=== PATIENT | male | born 1955 | race Caucasian/White ===

== ENCOUNTER 2019-12-02 05:40 | Day surgery (SDC) | payer MEDICARE, BC ==
[2019-12-02] MEDS ORDERED: fentaNYL 100 MCG/2 ML SDV ONE (07:45)
[2019-12-02] MEDS ORDERED: Propofol 200 MG/20 ML SDV ONE (07:45)
[2019-12-02] MEDS ORDERED: Dextrose 5%-Lactated Ringers 1,000 ML IV SCH (08:00)
--- NOTE | 2019-12-03 15:42 | OR ---
DATE OF PROCEDURE: 12/02/2019 SURGEON: Ttii Mclaughlin MD PREOPERATIVE DIAGNOSIS: Gastroesophageal reflux disease. POSTOPERATIVE DIAGNOSIS: Moderate-sized hiatal hernia with mildly active gastroesophageal reflux disease. OPERATIVE PROCEDURE: Esophagogastroduodenoscopy with biopsy of esophagogastric junction. ANESTHESIA: IV sedation. INDICATIONS FOR PROCEDURE: A 63-year-old male being treated for stage IV lung cancer, who per the request of Medical Oncology is undergoing upper endoscopy to assess the degree of his esophagitis. The patient presently states that he has not had any heartburn or other reflux-type symptoms for several weeks. He presently is on omeprazole 40 mg a day. Plan is to proceed with upper GI endoscopy with biopsies and/or dilation as indicated. Potential risks including bleeding and perforation were discussed and the patient wishes to proceed. DETAILS OF PROCEDURE: The patient was taken to the operating room, placed in a left lateral decubitus position. IV sedation was administered after which the upper GI endoscope was passed orally through the length of the esophagus and stomach with retroflexion view of the fundus and thereafter through the pyloric channel and into the junction of the third and fourth portions of the duodenum. Findings included normal hypopharynx, larynx, upper esophageal sphincter, and esophageal body. At the EG junction, the patient had a moderate-sized hiatal hernia measuring around 3 to 4 cm. There was some friability of the distal esophageal mucosa consistent with some reflux disease. No ulcerations or stricturing were present, and the remainder of the gastric and duodenal exams were unremarkable. At this point, biopsies were obtained from the esophagogastric junction and sent for histologic evaluation. Minimal bleeding from biopsy sites was seen and the procedure concluded. The patient was taken to the recovery room in satisfactory condition. Titi Mclaughlin MD /[id number]
== END 2019-12-02 09:07 | disposition home or self-care (01) ==
LOC: JP.SDS 05:40
PROVIDERS: ATTEND Surgery
DX: K44.9 Diaphragmatic hernia without obstruction or gangrene (principal); K21.9 Gastro-esophageal reflux disease without esophagitis; C34.90 Malignant neoplasm of unspecified part of unspecified bronchus or lung; Z79.899 Other long term (current) drug therapy
CPT/HCPCS: 43239; C1751; J1642; J2704; J3010; J7121; 88305

== ENCOUNTER 2020-04-07 12:39 | Emergency (ER) | payer MEDICARE, BC ==
[2020-04-07] MEDS ORDERED: HYDROmorphone 0.5 MG/0.5 ML Syringe IVPUSH ONE ×2 (13:18→14:23)
[2020-04-07] MEDS ORDERED: Ondansetron 4 MG/2 ML SDV IVPUSH ONE (13:18)
--- NOTE | 2020-04-07 13:20 | EDM.PDOC ---
ED HPI GENERAL MEDICAL PROBLEM - General Chief Complaint: Headache Stated Complaint: MIGRAINE,NAUSEA Time Seen by Provider: 04/07/20 13:20 Source of Information: Reports: Patient History Limitations: Reports: No Limitations - History of Present Illness INITIAL COMMENTS - FREE TEXT/NARRATIVE: pt has a severe rt sided headache. 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 He was very uncomfortable and was not aable to take his med. 5 Pain Score (Numeric/FACES): 9 - Related Data Allergies Allergy/AdvReac Type Severity Reaction Status Date / Time No Known Allergies Allergy Verified 04/07/20 12:54 Home Meds: Home Meds Acetaminophen/HYDROcodone [[place] 325-10 MG] 1 tab PO Q6H PRN 11/29/19 [History] Albuterol Sulfate [Proair Hfa] 1 - 2 puff IH Q4H PRN 11/29/19 [History] Docusate Sodium/Sennosides [Senokot-S] 1 each PO BID 11/29/19 [History] Fluticasone Propionate [Flonase] 2 spray NS DAILY 11/29/19 [History] Loratadine [Claritin] 10 mg PO DAILY 11/29/19 [History] Multivitamin [Multi-Day Vitamins] 1 each PO DAILY 11/29/19 [History] Omeprazole 40 mg PO DAILY PRN 11/29/19 [History] Ondansetron [Zofran] 8 mg PO Q8H PRN 11/29/19 [History] Urea [Urea 40% Crm] 1 applic TOP BID 11/29/19 [History] amLODIPine [Norvasc] 5 mg PO DAILY 11/29/19 [History] dexAMETHasone [Dexamethasone] 0.5 mg PO BID 11/29/19 [History] Past Medical History HEENT History: Reports: Cataract, Impaired Vision Cardiovascular History: Reports: Hypertension Respiratory History: Reports: Other (See Below) Other Respiratory History: LUNG CA Gastrointestinal History: Reports: GERD Genitourinary History: Reports: Other (See Below) Other Genitourinary History: TROIUBLE URINATING Musculoskeletal History: Reports: None Neurological History: Reports: Other (See Below) Other Neuro History: BRAIN TUMOR Psychiatric History: Reports: None Endocrine/Metabolic History: Reports: None Hematologic History: Reports: None Immunologic History: Reports: None Oncologic (Cancer) History: Reports: Brain Dermatologic History: Reports: None - Infectious Disease History Infectious Disease History: Reports: Chicken Pox, Measles, Mumps - Past Surgical History HEENT Surgical History: Reports: Cataract Surgery Cardiovascular Surgical History: Reports: None Respiratory Surgical History: Reports: Lung Resection Other Respiratory Surgeries/Procedures: LEFT UPPER LOBE GI Surgical History: Reports: Colonoscopy, Hernia, Inguinal Male Surgical History: Reports: Circumcision Neurological Surgical History: Reports: Other (See Below) Other Neurological Surgeries/Procedures: BRAIN TUMORS REMOVED Dermatological Surgical History: Reports: None Social & Family History - Family History Family Medical History: No Pertinent Family History - Tobacco Use Tobacco Use Status *Q: Never Tobacco User - Caffeine Use Caffeine Use: Reports: Coffee ED ROS GENERAL - Review of Systems Review Of Systems: See Below Constitutional: Reports: No Symptoms Respiratory: Reports: No Symptoms Cardiovascular: Reports: No Symptoms Endocrine: Reports: No Symptoms GI/Abdominal: Reports: No Symptoms : Reports: No Symptoms Musculoskeletal: Reports: No Symptoms Skin: Reports: No Symptoms Neurological: Reports: Headache, Other ( severe on the rt.) Psychiatric: Reports: Anxiety - Physical Exam Exam: See Below Text/Narrative:: pt has a very uncomfortable headache. on the rt side. Exam Limited By: No Limitations General Appearance: Alert, Anxious, Severe Distress, Other (pupils are equal and reactive. ) Ears: Normal TMs Nose: Normal Inspection Throat/Mouth: Normal Inspection Head Exam: Atraumatic Neck: Normal Inspection Respiratory/Chest: No Respiratory Distress Cardiovascular: Regular Rate, Rhythm GI/Abdominal: Soft, Non-Tender (Male) Exam: Deferred Rectal (Males) Exam: Deferred Neuro Exam (Abbreviated): Alert, Oriented, Normal Cognition Back Exam: Normal Inspection Extremities: Normal Inspection Psychiatric: Anxious Course - Vital Signs Last Recorded V/S: Last Vital Signs Temp 36.6 C 04/07/20 13:00 Pulse 58 L 04/07/20 13:00 Resp 18 04/07/20 13:00 BP 151/96 H 04/07/20 13:00 Pulse Ox 96 04/07/20 13:00 - Orders/Labs/Meds Meds: Medications Discontinued Medications Generic Name Dose Route Start Last Admin Trade Name Freq PRN Reason Stop Dose Admin Dexamethasone 4 mg 04/07/20 14:32 04/07/20 14:38 Decadron IVPUSH 04/07/20 14:33 4 mg ONETIME ONE Administration Hydromorphone HCl 0.5 mg 04/07/20 13:18 04/07/20 13:46 Dilaudid IVPUSH 04/07/20 13:19 0.5 mg ONETIME ONE Administration Hydromorphone HCl 0.5 mg 04/07/20 14:23 04/07/20 14:32 Dilaudid IVPUSH 04/07/20 14:24 0.5 mg ONETIME ONE Administration Ondansetron HCl 4 mg 04/07/20 13:18 04/07/20 13:46 Zofran IVPUSH 04/07/20 13:19 4 mg ONETIME ONE Administration - Re-Assessments/Exams Free Text/Narrative Re-Assessment/Exam: 04/07/20 16:06 Oliva from Oncology was contacted and will increase the decadron. The cat scan did show a lesion on the rt side. He was given a mg of dilaudid with relief and decadron 4 mg iv. He is much more comfortable. Departure - Departure Time of Disposition: 15:59 Disposition: Home, Self-Care 01 Condition: Fair Clinical Impression: Cancer of right lung, Malignant neoplasm metastatic to brain - Discharge Information Instructions: Lung Cancer, Metastatic Brain Tumor, Adult Referrals: Tameka Franco MD [Primary Care Provider] - Forms: ED Department Discharge Care Plan Goals: Parish from oncology will contact the pt regarding radiation, increase dexamethasone to 4 mg bid, percocet 5/325 q6h prn for severe headache, rtc if problems. zoforan 4mg subling as needed for nausea. resume other meds. Sepsis Event Note (ED) - Evaluation Sepsis Screening Result: No Definite Risk
--- NOTE | 2020-04-07 14:17 | CRLCT ---
INDICATION: Severe headache. Known metastatic disease to the lungs COMPARISON: None TECHNIQUE: CT examination of the head was performed as axial sections without intravenous contrast. Images were obtained from the vertex of the skull through the skull base. Please note that all CT scans at this facility use dose modulation, iterative reconstruction, and/or weight-based dosing when appropriate to reduce radiation dose to as low as reasonably achievable. FINDINGS: There are findings of a left parietal region craniotomy. There appears to be an area of encephalomalacia immediately subjacent to the craniotomy on the left. This probably represents the area of a previously resected lesion A low-density mass is noted in the left parietal lobe inferiorly. This is separate from the above-mentioned area of encephalomalacia. This measures about 4 centimeters and probably represents a metastatic deposit to the brain. There is a 2nd low-density lesion in the right frontal lobe measuring about 3.2 centimeters which may represent a metastatic lesion as well. I see no hemorrhage. There is minimal mass effect upon the regional structures but no midline shift. If this requires further imaging, an MRI with gadolinium would be the study of choice IMPRESSION: Findings suggesting metastatic disease to the brain. I discussed the above findings with Dr. Rayna Garcia at 2:10 p.m. on April 07, [address] Please note that all CT scans at this facility use dose modulation, iterative reconstruction, and/or weight-based dosing when appropriate to reduce radiation dose to as low as reasonably achievable. Dictated by Titi Londono MD @ Apr 07 2020 2:09PM Signed by Dr. Titi Londono @ Apr 07 2020 2:15PM
[2020-04-07] MEDS ORDERED: Dexamethasone 4 MG/ML SDV IVPUSH ONE (14:32)
== END 2020-04-07 16:19 | disposition home or self-care (01) ==
LOC: JP.ED 12:39
DX: C34.91 Malignant neoplasm of unspecified part of right bronchus or lung (principal); C79.31 Secondary malignant neoplasm of brain; I10 Essential (primary) hypertension; Z79.899 Other long term (current) drug therapy
CPT/HCPCS: 70450; 96374; 96375; 96376; 99284; 99284-25; J1100; J1170; J2405

== ENCOUNTER 2020-04-25 13:55 | Inpatient (IN) | payer MEDICARE, BC ==
[2020-04-25] MEDS ORDERED: Sodium Chloride 0.9% 10 ML Syringe FLUSH PRN (14:47)
[2020-04-25] MEDS ORDERED: Ondansetron 4 MG/2 ML SDV IV PRN (14:47)
[2020-04-25] MEDS ORDERED: Acetaminophen 325 MG Tab PO PRN (14:47)
[2020-04-25] MEDS ORDERED: Albuterol 0.083% 2.5 MG/3 ML Neb Soln NEB PRN (14:47)
[2020-04-25] MEDS ORDERED: LORazepam 2 MG/ML SDV IVPUSH PRN (14:47)
[2020-04-25] MEDS ORDERED: Magnesium Hydroxide 400 MG/5 ML Susp 30 ML Cup PO PRN (14:47)
[2020-04-25] MEDS ORDERED: Ondansetron 4 MG Tab.DIS PO PRN (14:47)
--- NOTE | 2020-04-25 14:57 | PCM.HP.2 ---
H&P History of Present Illness - General Date of Service: 04/25/20 Admit Problem/Dx: Admission Diagnosis/Problem Admission Diagnosis/Problem CHF, Congestive heart failure Source of Information: Patient, Family History Limitations: Reports: No Limitations - History of Present Illness Initial Comments - Free Text/Narative: CC: My legs are so swollen HPI: Jose presents to the hospital as a direct admission from the infusion center after seeing his oncologist. Some history is gathered from his but most of the history is gathered from Jose. He reports 2 to 3 days of progressive dyspnea with exertion as well as increasing lower extremity edema. His feet are so swollen that he had to cut his shoes to get them to fit today. He has never had trouble with lower extremity swelling before. He has a dry and nonproductive cough. He does not report orthopnea. No recent chest pain. No fevers or chills. He has been on an increased dose of dexamethasone for 2 weeks because of recent headaches and swelling around the previous area of radiation. He was also recently started on alectinib to treat his lung cancer. He has noticed some mild increase in his abdominal girth. No change in bowel or bladder habits. No sick contacts or travel. His strength has been diminished over the past couple of days. No myalgias or arthralgias. He has chronic back pain but this is stable. He was initially seen at the infusion center. He was noted to have gained 16 pounds in the past month. He had significant swelling and appeared dyspneic. He was tachycardic. Laboratory studies unremarkable other than a white blood cell count of 14,000. He was sent to the hospital for expedited work-up with concern for congestive heart failure. - Related Data Allergies/Adverse Reactions: Allergies Allergy/AdvReac Type Severity Reaction Status Date / Time No Known Allergies Allergy Verified 04/07/20 12:54 Home Medications: Home Meds Acetaminophen/HYDROcodone [[place] 325-10 MG] 1 tab PO Q6H PRN 11/29/19 [History] Albuterol Sulfate [Proair Hfa] 1 - 2 puff IH Q4H PRN 11/29/19 [History] Docusate Sodium/Sennosides [Senokot-S] 1 each PO BID PRN 11/29/19 [History] Fluticasone Propionate [Flonase] 2 spray NS DAILY PRN 11/29/19 [History] Loratadine [Claritin] 10 mg PO DAILY 11/29/19 [History] Multivitamin [Multi-Day Vitamins] 1 each PO DAILY 11/29/19 [History] Omeprazole 40 mg PO DAILY PRN 11/29/19 [History] Ondansetron [Zofran] 8 mg PO Q8H PRN 11/29/19 [History] Urea [Urea 40% Crm] 1 applic TOP BID PRN 11/29/19 [History] amLODIPine [Norvasc] 5 mg PO DAILY 11/29/19 [History] dexAMETHasone [Dexamethasone] 2 mg PO BID 11/29/19 [History] Alectinib HCl [Alecensa] 600 mg PO BID 04/25/20 [History] Past Medical History HEENT History: Reports: Cataract, Impaired Vision Cardiovascular History: Reports: Hypertension Respiratory History: Reports: Other (See Below) Other Respiratory History: LUNG CA Gastrointestinal History: Reports: GERD Genitourinary History: Reports: Other (See Below) Other Genitourinary History: TROIUBLE URINATING Musculoskeletal History: Reports: None Neurological History: Reports: Other (See Below) Other Neuro History: BRAIN TUMOR Psychiatric History: Reports: None Endocrine/Metabolic History: Reports: None Hematologic History: Reports: None Immunologic History: Reports: None Oncologic (Cancer) History: Reports: Brain Dermatologic History: Reports: None - Infectious Disease History Infectious Disease History: Reports: Chicken Pox, Measles, Mumps - Past Surgical History HEENT Surgical History: Reports: Cataract Surgery Cardiovascular Surgical History: Reports: None Respiratory Surgical History: Reports: Lung Resection Other Respiratory Surgeries/Procedures: LEFT UPPER LOBE GI Surgical History: Reports: Colonoscopy, Hernia, Inguinal Male Surgical History: Reports: Circumcision Neurological Surgical History: Reports: Other (See Below) Other Neurological Surgeries/Procedures: BRAIN TUMORS REMOVED Dermatological Surgical History: Reports: None Social & Family History - Family History Family Medical History: No Pertinent Family History - Tobacco Use Tobacco Use Status *Q: Never Tobacco User - Caffeine Use Caffeine Use: Reports: Coffee - Alcohol Use Alcohol Use History: No Alcohol Use in Last Twelve Months: No - Recreational Drug Use Recreational Drug Use: No Drug Use in Last 12 Months: No H&P Review of Systems - Review of Systems: Review Of Systems: See Below Free Text/Narrative: A complete 12 point review of systems was obtained. Pertinent positives and negatives are noted in the history of present illness. All other systems were reviewed and were negative except as noted. Exam - Exam Exam: See Below - Exam Quality Assessment: No: Supplemental Oxygen General: Alert, Oriented, Cooperative, Mild Distress (Mild increase in work of breathing) HEENT: Conjunctiva Clear. No: Mucosa Moist & [place] Neck: Supple, Trachea Midline. No: JVD Lungs: Normal Respiratory Effort, Crackles (Few right lung base). No: Wheezing Cardiovascular: Regular Rhythm, Tachycardia. No: Systolic Murmur, Gallop/S3 GI/Abdominal Exam: Normal Bowel Sounds, Soft, Non-Tender, No Distention, No Mass Back Exam: Normal Inspection, Full Range of Motion Extremities: Pedal Edema (Pitting edema to the knee on the right and to mid thigh on the left). No: Joint Swelling, Increased Warmth Skin: Warm, Dry, Rash (He has a few macules scattered across his chest as well as the elbow regions of both arms on the medial surface) Neuro Extensive - Mental Status: Alert, Oriented x3, Normal Mood/Affect, Nl Response to Commands Neuro Extensive - Motor, Sensory, Reflexes: No: Dysarthria, Abnormal Motor, Tremor Psychiatric: Alert, Normal Affect - Patient Data Lab Results Last 24 hrs: White blood cell count 14k Hemoglobin 14 Creatinine 1.27 Potassium 4.6 Imaging Impressions Last 24 hrs: Chest [id number] personally reviewed-right lung is clear. Some haziness on the left side probably related to volume loss from his previous lung surgery. No obvious mass or infiltrate. Heart size is normal. Lower extremity venous ultrasound-no evidence for DVT *Q Meaningful Use (ADM) - VTE Risk Assess *Q Each Risk Factor Represents 1 Point: Swollen Legs, Current, Obesity ( BMI > 25 kg/m2) Total Score 1 Point Risk Factors: 2 Each Risk Factor Represents 2 Points: Central venous access, Malignancy (present or previous) Total Score 2 Point Risk Factors: 4 Each Risk Factor Represents 3 Points: History of DVT/PE Total Score 3 Point Risk Factors: 3 Each Risk Factor Represents 5 Points: None Total Score 5 Point Risk Factors: 0 Venous Thromboembolism Risk Factor Score *Q: 9 - Problem List (1) Congestive heart failure SNOMED Code(s): 30051441 ICD Code: I50.9 - HEART FAILURE, UNSPECIFIED Status: Suspected Current Visit: Yes Qualifiers: Heart failure type: unspecified Heart failure chronicity: acute Qualified Code(s): I50.9 - Heart failure, unspecified (2) Non-small cell carcinoma of left lung, stage 4 SNOMED Code(s): 410540197, 508011256 ICD Code: C34.92 - MALIGNANT NEOPLASM OF UNSP PART OF LEFT BRONCHUS OR LUNG Status: Chronic Current Visit: Yes (3) Hx of pulmonary embolus SNOMED Code(s): 429362878 ICD Code: Z86.711 - PERSONAL HISTORY OF PULMONARY EMBOLISM Status: Chronic Current Visit: No Problem List Initiated/Reviewed/Updated: Yes Orders Last 24hrs: Active Orders 24 hr Category Date Time Status Patient Status [ADT] Routine ADT 04/25/20 14:47 Ordered Antiembolic Devices [RC] .Routine Care 04/25/20 14:47 Ordered Cardiac Monitoring [RC] CONTINUOUS Care 04/25/20 14:48 Ordered Height and Weight [RC] DAILY Care 04/25/20 14:47 Ordered Intake and Output [RC] QSHIFT Care 04/25/20 14:47 Ordered Notify Provider Vital Signs [RC] ASDIRECTED Care 04/25/20 14:47 Ordered Oxygen Therapy [RC] PRN Care 04/25/20 14:47 Ordered RT Aerosol Therapy [RC] ASDIRECTED Care 04/25/20 14:50 Ordered Up With Assistance [RC] ASDIRECTED Care 04/25/20 14:47 Ordered VTE/DVT Education [RC] Per Unit Routine Care 04/25/20 14:47 Ordered Vital Signs [RC] Q4H Care 04/25/20 14:47 Ordered PT Evaluation and Treatment [CONS] Routine Cons 04/26/20 07:00 Ordered 2 Gram Sodium Diet [DIET] Diet 04/25/20 Dinner Ordered Chest 2V [CR] Urgent Exams 04/25/20 14:47 Ordered Echo Comp wo Cont [US] Routine Exams 04/27/20 07:00 Ordered VL Duplex Lwr Ext Veins Comp [US] Routine Exams 04/25/20 14:51 Ordered CBC W/O DIFF,HEMOGRAM [HEME] AM Lab 04/26/20 05:11 Ordered COMPREHENSIVE METABOLIC PN,CMP [CHEM] AM Lab 04/26/20 05:11 Ordered COVID-19/FLU A+B/RSV [MOLEC] Urgent Lab 04/25/20 14:03 Ordered Acetaminophen [TylenoL] Med 04/25/20 14:47 Ordered 650 mg PO Q4H PRN Albuterol [Proventil Neb Soln] Med 04/25/20 14:47 Ordered 2.5 mg NEB Q4H PRN Docusate Sodium/Sennosides [Senna Plus] Med 04/25/20 14:47 Ordered 1 tab PO BID PRN Furosemide [Lasix] Med 04/25/20 14:51 Once 40 mg IVPUSH ONETIME ONE LORazepam [Ativan] Med 04/25/20 14:47 Ordered 0.5 mg IVPUSH Q4H PRN Magnesium Hydroxide [Milk of Magnesia] Med 04/25/20 14:47 Ordered 30 ml PO Q12H PRN Melatonin Med 04/25/20 21:00 Ordered 9 mg PO BEDTIME Ondansetron [Zofran ODT] Med 04/25/20 14:47 Ordered 8 mg PO Q6H PRN Ondansetron [Zofran] Med 04/25/20 14:47 Ordered 4 mg IV Q6H PRN Pantoprazole [ProTONIX] Med 04/26/20 07:30 Ordered 40 mg PO ACBREAKFAST Sodium Chloride 0.9% [Saline Flush] Med 04/25/20 14:47 Ordered 10 ml FLUSH ASDIRECTED PRN Antiembolic Hose [OM.PC] Routine Oth 04/25/20 14:48 Ordered Saline Lock Insert [OM.PC] Urgent Oth 04/25/20 14:47 Ordered Resuscitation Status Routine Resus Stat 04/25/20 14:47 Ordered Assessment/Plan Comment:: ASSESSMENT AND PLAN - Congestive heart failure, suspected-acute onset of dyspnea and lower extremity swelling. Could be related to congestive heart failure versus medication side effect versus DVT/pulmonary embolism versus other. Doubt infection at this merari e. He was recently on high-dose steroids and is also on a new chemotherapeutic agent that has a fairly high incidence of edema as a side effect. He is also on a calcium channel [place]. He is not currently hypoxic. -Furosemide x1 now -Chest x-ray -Lower extremity venous ultrasound -CORIN stockings overnight and through the day tomorrow -Daily weights -Echocardiogram when available in 2 days -Hold alectinib Non-small cell cancer of the left lung with brain metastases-stage IV disease. Currently stable. Followed by oncology at [facility]. -Holding chemotherapeutic agent as above -Dexamethasone 2 mg twice a day -Outpatient follow-up History of DVT/PE-occurred in the postoperative setting after his lung surgery couple of years ago. -Ultrasound as above Maintenance issues - - DVT prophylaxis -CORIN stockings - GI prophylaxis -PPI - Nutrition -low-sodium - Velazquez catheter -not indicated CODE STATUS -DNR/DNI Admission justification -this patient will be admitted for inpatient services and is medically appropriate meeting medical necessity for inpatient admission as outlined in my documentation. I reasonably expect the patient will require inpatient services that span a period time over 2 midnights. I reasonably expect this patient to be discharged or transferred within 96 hours [facility]. Disposition -I would anticipate discharge home after the hospital stay Primary care physician -[facility] Ayad Villarreal M.D. - Mortality Measure Prognosis:: Good
[2020-04-25] MEDS ORDERED: Furosemide 40 MG/4 ML VIAL IVPUSH ONE (15:30)
[2020-04-25 15:49] LABS: CORONAVIRUS COVID-19 NAA NEGATIVE (NEGATIVE)
--- NOTE | 2020-04-25 16:22 | CRLCR ---
INDICATION: Shortness of breath TECHNIQUE: Chest radiograph 2 views on 3 films COMPARISON: None FINDINGS: Severe degradation of image quality noted due to body habitus. Mediastinum: Convex enlargement of the right paratracheal region is present. The heart silhouette is normal in size and morphology. A right Port-A-Cath is present with the tip in the SVC. Lung: Hazy increased density is present in the left mid lower lung zones with small left lung volume. No sign of pleural effusion seen. No pneumothorax is identified. Bone and Soft tissue: Unremarkable for age. IMPRESSIONS: 1. Hazy increased density is present in the left mid lower lung zones with small left lung volume. These findings can be seen with atelectasis and/or pneumonia. 2. Convex enlargement of the right paratracheal region is present. This may be due to tortuous vessels or paratracheal adenopathy. Dictated by Chavo Sinha MD @ 04/25/2020 4:21:21 PM Dictated by: Chavo Sinha MD @ 04/25/2020 16:21:27 (Electronically Signed)
[2020-04-25] MEDS: Acetaminophen/HYDROcodone 325-10 MG Tab PO PRN (17:19)
[2020-04-25] MEDS ORDERED: Non-Formulary Medication 1 Each INH SCH (21:00)
[2020-04-25] MEDS: Dexamethasone 2 MG Tab PO SCH (21:24)
[2020-04-25] MEDS: Melatonin 3 MG Tab PO SCH (21:24)
[2020-04-26] MEDS: Acetaminophen/HYDROcodone 325-10 MG Tab PO PRN ×4 (00:51→19:33)
[2020-04-26] MEDS: Pantoprazole 40 MG Tab.CR PO SCH (08:16)
[2020-04-26] MEDS: Multivitamins with Iron/Calcium/Folic Acid/Minerals Tab PO SCH (08:16)
[2020-04-26] MEDS: Loratadine 10 MG Tab PO SCH (08:16)
[2020-04-26] MEDS: Dexamethasone 2 MG Tab PO SCH ×2 (08:17→20:58)
[2020-04-26] MEDS: amLODIPine 5 MG Tab PO SCH (08:17)
--- NOTE | 2020-04-26 09:25 | US ---
VL Duplex Lwr Ext Veins Comp HISTORY: Bilateral leg edema FINDINGS: The deep veins of the both lower extremities demonstrate normal augmentation and compressibility. No evidence for deep venous thrombosis. IMPRESSION: Normal bilateral lower extremity venous Doppler study.
--- NOTE | 2020-04-26 09:27 | PCM.PN ---
- General Info Date of Service: 04/26/20 Subjective Update: No acute events overnight. Patient slept well. Lower extremity edema is much better but not resolved. No shortness of breath. Appetite good. Creatinine slightly higher at 1.5 today. No reports of headache. Functional Status: Reports: Pain Controlled, Tolerating Diet - Review of Systems Cardiovascular: Reports: Edema (improved) - Patient Data Vitals - Most Recent: Last Vital Signs Temp 36.2 C 04/26/20 07:57 Pulse 103 H 04/26/20 07:57 Resp 16 04/26/20 07:57 BP 141/73 H 04/26/20 08:17 Pulse Ox 94 L 04/26/20 07:57 Weight - Most Recent: 90.9 kg I&O - Last 24 Hours: Intake & Output 04/25/20 04/26/20 04/26/20 22:59 06:59 14:59 Intake Total 300 480 Output Total 1800 300 Balance -1800 0 480 Lab Results Last 24 Hours: Laboratory Results - last 24 hr 04/25/20 04/26/20 04/26/20 Range/Units 15:00 04:24 04:24 WBC 15.7 H (4.5-11.0) K/uL RBC 4.78 (4.30-5.90) M/uL Hgb 14.9 (12.0-15.0) g/dL Hct 47.5 (40.0-54.0) % MCV 99 H (80-98) fL MCH 31 (27-31) pg MCHC 31 L (32-36) % Plt Count 172 (150-400) K/uL Sodium 141 (140-148) mmol/L Potassium 4.5 (3.6-5.2) mmol/L Chloride 101 (100-108) mmol/L Carbon Dioxide 30 (21-32) mmol/L Anion Gap 9.6 (5.0-14.0) mmol/L BUN 37 H (7-18) mg/dL Creatinine 1.5 H (0.8-1.3) mg/dL Est Cr Clr Drug Dosing 50.41 mL/min Estimated GFR (MDRD) 47 L (>60) Glucose 233 H (74-106) mg/dL Calcium 9.1 (8.5-10.1) mg/dL Total Bilirubin 0.7 (0.2-1.0) mg/dL AST 67 H (15-37) U/L ALT 233 H (12-78) U/L Alkaline Phosphatase 117 H (46-116) U/L Total Protein 5.5 L (6.4-8.2) g/dL Albumin 2.8 L (3.4-5.0) g/dL Globulin 2.7 (2.3-3.5) g/dL Albumin/Globulin Ratio 1.0 L (1.2-2.2) Influenza Type A RNA Negative (NEGATIVE) RSV RNA (INAAT) Negative (NEGATIVE) Influenza Type B RNA Negative (NEGATIVE) SARS-CoV-2 RNA (NORA) Negative (NEGATIVE) Med Orders - Current: Current Medications Acetaminophen (Tylenol) 650 mg PO Q4H PRN PRN Reason: Pain (Mild 1-3)/fever Hydrocodone Bitart/Acetaminophen ([place] 325-10 Mg) 1 tab PO Q4H PRN PRN Reason: Pain Last Admin: 04/26/20 06:55 Dose: 1 tab Documented by: Albuterol (Proventil Neb Soln) 2.5 mg NEB Q4H PRN PRN Reason: Shortness Of Breath/wheezing Amlodipine Besylate (Norvasc) 5 mg PO DAILY [facility] Last Admin: 04/26/20 08:17 Dose: 5 mg Documented by: Dexamethasone (Dexamethasone) 2 mg PO BID [facility] Last Admin: 04/26/20 08:17 Dose: 2 mg Documented by: Loratadine (Claritin) 10 mg PO DAILY [facility] Last Admin: 04/26/20 08:16 Dose: 10 mg Documented by: Lorazepam (Ativan) 0.5 mg IVPUSH Q4H PRN PRN Reason: Nausea/Vomiting Magnesium Hydroxide (Milk Of Magnesia) 30 ml PO Q12H PRN PRN Reason: Constipation Melatonin (Melatonin) 9 mg PO BEDTIME [facility] Last Admin: 04/25/20 21:24 Dose: 9 mg Documented by: Multivitamins/Minerals (Thera M Plus) 1 tab PO DAILY [facility] Last Admin: 04/26/20 08:16 Dose: 1 tab Documented by: Non-Formulary Medication (Nf Drug) 2 each INH BID [facility] Ondansetron HCl (Zofran) 4 mg IV Q6H PRN PRN Reason: Nausea/Vomiting Ondansetron HCl (Zofran Odt) 8 mg PO Q6H PRN PRN Reason: Nausea able to take PO Pantoprazole Sodium (Protonix) 40 mg PO ACBREAKFAST [place] Last Admin: 04/26/20 08:16 Dose: 40 mg Documented by: Senna/Docusate Sodium (Senna Plus) 1 tab PO BID PRN PRN Reason: Constipation Sodium Chloride (Saline Flush) 10 ml FLUSH ASDIRECTED PRN PRN Reason: Keep Vein Open Discontinued Medications Furosemide (Lasix) 40 mg IVPUSH ONETIME ONE Stop: 04/25/20 15:31 Last Admin: 04/25/20 16:47 Dose: 40 mg Documented by: - Exam Quality Assessment: No: Supplemental Oxygen General: Alert, Cooperative, No Acute Distress Lungs: Normal Respiratory Effort Cardiovascular: Regular Rhythm, Tachycardia GI/Abdominal Exam: Soft, No Distention Extremities: Pedal Edema (both feet and ankles) Skin: Warm, Dry Psy/Mental Status: Alert, Normal Affect Sepsis Event Note - Evaluation Sepsis Screening Result: Sepsis Risk - Focused Exam Vital Signs: Vital Signs Temp Pulse Resp BP BP Pulse Ox 04/26/20 08:17 141/73 H 04/26/20 07:57 36.2 C 103 H 16 141/73 H 94 L 04/26/20 03:19 35.8 C L 104 H 18 129/95 H 94 L 04/25/20 22:48 36.1 C 105 H 16 117/72 92 L - Problem List & Annotations (1) Congestive heart failure SNOMED Code(s): 71834743 Code(s): I50.9 - HEART FAILURE, UNSPECIFIED Status: Suspected Current Visit: Yes Qualifiers: Heart failure type: unspecified Heart failure chronicity: acute Qualified Code(s): I50.9 - Heart failure, unspecified (2) Non-small cell carcinoma of left lung, stage 4 SNOMED Code(s): 931615799, 747642376 Code(s): C34.92 - MALIGNANT NEOPLASM OF UNSP PART OF LEFT BRONCHUS OR LUNG Status: Chronic Current Visit: Yes (3) Hx of pulmonary embolus SNOMED Code(s): 490917141 Code(s): Z86.711 - PERSONAL HISTORY OF PULMONARY EMBOLISM Status: Chronic Current Visit: No - Problem List Review Problem List Initiated/Reviewed/Updated: Yes - My Orders Last 24 Hours: My Active Orders 04/25/20 14:47 Patient Status [ADT] Routine Antiembolic Devices [RC] .Routine Height and Weight [RC] 0500 Intake and Output [RC] QSHIFT Notify Provider Vital Signs [RC] ASDIRECTED Oxygen Therapy [RC] PRN Up With Assistance [RC] ASDIRECTED Vital Signs [RC] Q4H Acetaminophen [TylenoL] 650 mg PO Q4H PRN Albuterol [Proventil Neb Soln] 2.5 mg NEB Q4H PRN Docusate Sodium/Sennosides [Senna Plus] 1 tab PO BID PRN LORazepam [Ativan] 0.5 mg IVPUSH Q4H PRN Magnesium Hydroxide [Milk of Magnesia] 30 ml PO Q12H PRN Ondansetron [Zofran ODT] 8 mg PO Q6H PRN Ondansetron [Zofran] 4 mg IV Q6H PRN Sodium Chloride 0.9% [Saline Flush] 10 ml FLUSH ASDIRECTED PRN Saline Lock Insert [OM.PC] Urgent Resuscitation Status Routine 04/25/20 14:48 Antiembolic Hose [OM.PC] Routine 04/25/20 14:50 RT Aerosol Therapy [RC] ASDIRECTED 04/25/20 15:03 Acetaminophen/HYDROcodone [[place] 325-10 MG] 1 tab PO Q4H PRN 04/25/20 Dinner 2 Gram Sodium Diet [DIET] 04/25/20 21:00 Melatonin 9 mg PO BEDTIME dexAMETHasone 2 mg PO BID 04/26/20 07:00 PT Evaluation and Treatment [CONS] Routine 04/26/20 07:30 Pantoprazole [ProTONIX] 40 mg PO ACBREAKFAST 04/26/20 09:00 Loratadine [Claritin] 10 mg PO DAILY Multivitamins w-Iron/Ca/FA/Min [Thera M Plus] 1 tab PO DAILY amLODIPine [Norvasc] 5 mg PO DAILY 04/26/20 09:27 Discontinue Telemetry Monitoring [Cardiac Monitoring Discontinue] [RC] Click to Edit 04/27/20 05:00 BASIC METABOLIC PANEL,BMP [CHEM] Timed 04/27/20 07:00 Echo Comp wo Cont [US] Routine - Plan Plan:: ASSESSMENT AND PLAN - Congestive heart failure, suspected-chest x-ray clear. No evidence for DVT. Edema much better after 1 dose of furosemide and CORIN stockings. Suspect medication side effect with the most likely culprit of his chemotherapy drug. Planning echo tomorrow to evaluate cardiac function but I suspect this will be normal. 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 Currently stable. Followed by oncology at [facility]. -Holding chemotherapeutic agent as above -Dexamethasone 2 mg twice a day -Outpatient follow-up History of DVT/PE-lower extremity ultrasound negative yesterday. Maintenance issues - - DVT prophylaxis -CORIN stockings - GI prophylaxis -PPI - Nutrition -low-sodium Disposition -I would anticipate discharge home after the hospital stay Primary care physician -[facility] Ayad Villarreal M.D.
[2020-04-26] MEDS: SYMBICORT 160/4.5 INHALER (PTOM) INH SCH ×2 (13:39→20:58)
[2020-04-26] MEDS: Melatonin 3 MG Tab PO SCH (20:58)
[2020-04-27] MEDS: Acetaminophen/HYDROcodone 325-10 MG Tab PO PRN ×3 (01:38→13:07)
[2020-04-27] MEDS: SYMBICORT 160/4.5 INHALER (PTOM) INH SCH (07:26)
[2020-04-27] MEDS: Dexamethasone 2 MG Tab PO SCH (08:02)
[2020-04-27] MEDS: Loratadine 10 MG Tab PO SCH (08:02)
[2020-04-27] MEDS: Multivitamins with Iron/Calcium/Folic Acid/Minerals Tab PO SCH (08:02)
[2020-04-27] MEDS: amLODIPine 5 MG Tab PO SCH (08:03)
[2020-04-27] MEDS: Pantoprazole 40 MG Tab.CR PO SCH (08:03)
[2020-04-27] MEDS ORDERED: Pneumococcal Polyvalent-23 Vaccine 0.5 ML SDV IM ONE (10:00)
--- NOTE | 2020-04-27 13:07 | PCM.DCSUM1 ---
Discharge Summary - Hospital Course Brief History: 64-year-old male with history of stage IV non-small cell lung cancer on oral chemotherapy complicated by brain metastases who presented with acute onset of lower extremity swelling and dyspnea. He was admitted for expedited work-up with concern for congestive heart failure. Diagnosis: Stroke: No - Discharge Data Discharge Date: 04/27/20 Discharge Disposition: Home, Self-Care 01 Condition: Good - Referral to Home Health Primary Care Physician: Tameka Franco MD - Discharge Diagnosis/Problem(s) (1) Adverse reaction to drug in therapeutic use SNOMED Code(s): 38035570, 856549760 ICD Code: T50.905A - ADVERSE EFFECT OF UNSP DRUG/MEDS/BIOL SUBST, INIT Status: Acute Current Visit: Yes (2) Congestive heart failure SNOMED Code(s): 14456002 ICD Code: I50.9 - HEART FAILURE, UNSPECIFIED Status: Ruled-out Current Visit: Yes Qualifiers: Heart failure type: unspecified Heart failure chronicity: acute Qualified Code(s): I50.9 - Heart failure, unspecified (3) Non-small cell carcinoma of left lung, stage 4 SNOMED Code(s): 428155019, 424928029 ICD Code: C34.92 - MALIGNANT NEOPLASM OF UNSP PART OF LEFT BRONCHUS OR LUNG Status: Chronic Current Visit: Yes (4) Hx of pulmonary embolus SNOMED Code(s): 950349266 ICD Code: Z86.711 - PERSONAL HISTORY OF PULMONARY EMBOLISM Status: Chronic Current Visit: No - Patient Summary/Data Consults: Consultations 04/26/20 07:00 PT Evaluation and Treatment [CONS] Routine Please Evaluate and Treat. PT Reason for Consult: Strengthening This query below is only for informational purposes and is not editable. Hospital Course: Jose presented to the infusion center for routine follow-up and mentioned that he had a rapid accumulation of swelling in both of his lower legs. He was sent to the hospital for direct admission with concern for new onset congestive heart failure and for expedited work-up and management. Laboratory studies obtained in the clinic were fairly unremarkable. At the time of admission he had a chest x-ray which showed changes from his previous lung surgery but no evidence for congestive heart failure. Examination was not consistent with congestive heart failure. He did have lower extremity ultrasounds that did not show any evidence for DVT. He did receive a single dose of furosemide and CORIN stockings were applied. It was suspected that he was having an adverse reaction to his chemotherapy drug or potentially fluid retention from recent high-dose steroid treatment. Overnight following admission we saw a dramatic improvement in the lower extremity edema. Had improved from swelling to above the knees down to around the ankles. He was feeling a fair amount better. We did see a slight rise in his creatinine so we held off on additional diuresis. We continue to use compression stockings for edema management. Over the second night of hospitalization we saw further improvement but not quite resolution of his edema. An echocardiogram was completed on the morning of discharge. This did not show any significant abnormalities. He had a normal ejection fraction. I continue to suspect that this is related to medications. The plan is for him to hold his chemotherapy drug through the weekend and this will be reassessed at the infusion center next week. Hopefully tapering the steroids will help as well. If he continues to have difficulty a trial off of his calcium channel [place] could also be considered. He will be discharged home in good condition with his . - Patient Instructions Diet: Regular Diet as Tolerated Activity: As Tolerated Showering/Bathing: May Shower Other/Special Instructions: 1.You were in the hospital for work-up and management of acute onset of lower extremity swelling and dyspnea. Your condition has been improving after we held your chemotherapy drug. We did not find any evidence for congestive heart failure or blood clot in either of your legs. I suspect that the swelling was caused by most likely the chemotherapy drug though there may have been some contribution from your recent high-dose steroids. I discussed the situation with the infusion center and they recommended holding your chemotherapy agent through the weekend and this will be reassessed next week. You should continue the dexamethasone at 2 mg twice daily and this will likely be tapered further next week. I recommend that you wrap the feet and ankles tightly with Rom wraps. Put these on in the morning and you may take them off at night. I also recommend elevating the legs above the level of the pelvis for 20 to 30 minutes 4-5 times per day. 2. Continue your other medications as previously prescribed. 3. Follow up with the infusion center as scheduled next Friday. They did ask that you call on Friday to let them know how the legs are doing. 4. Please seek medical attention if you have a rapid increase in the swelling of either or both legs, you develop redness or significant pain in either or both of the legs or if you develop a fever greater than 100.4 degrees. - Discharge Plan *PRESCRIPTION DRUG MONITORING PROGRAM REVIEWED*: Not Applicable *COPY OF PRESCRIPTION DRUG MONITORING REPORT IN PATIENT ADITYA: Not Applicable Home Medications: Home Meds Acetaminophen/HYDROcodone [[place] 325-10 MG] 1 tab PO Q6H PRN 11/29/19 [History] Albuterol Sulfate [Proair Hfa] 1 - 2 puff IH Q4H PRN 11/29/19 [History] Docusate Sodium/Sennosides [Senokot-S] 1 each PO BID PRN 11/29/19 [History] Fluticasone Propionate [Flonase] 2 spray NS DAILY PRN 11/29/19 [History] Loratadine [Claritin] 10 mg PO DAILY 11/29/19 [History] Multivitamin [Multi-Day Vitamins] 1 each PO DAILY 11/29/19 [History] Omeprazole 40 mg PO DAILY PRN 11/29/19 [History] Ondansetron [Zofran] 8 mg PO Q8H PRN 11/29/19 [History] Urea [Urea 40% Crm] 1 applic TOP BID PRN 11/29/19 [History] amLODIPine [Norvasc] 5 mg PO DAILY 11/29/19 [History] dexAMETHasone [Dexamethasone] 2 mg PO BID 11/29/19 [History] Alectinib HCl [Alecensa] 600 mg PO BID 04/25/20 [History] Budesonide/Formoterol [Symbicort 160-4.5 MCG] 2 puff INH BID 04/25/20 [History] Patient Handouts: Edema Referrals: Lilliana Arias MD [Ordering Only Provider] - (f/u as scheduled next week ) - Discharge Summary/Plan Comment DC Time >30 min.: No - Patient Data Vitals - Most Recent: Last Vital Signs Temp 35.6 C L 04/27/20 10:49 Pulse 70 04/27/20 10:49 Resp 16 04/27/20 10:49 BP 141/74 H 04/27/20 10:49 Pulse Ox 93 L 04/27/20 10:49 Weight - Most Recent: 90.991 kg I&O - Last 24 hours: Intake & Output 04/26/20 04/27/20 04/27/20 22:59 06:59 14:59 Intake Total 840 480 400 Output Total 450 500 300 Balance 390 -20 100 Lab Results - Last 24 hrs: Laboratory Results - last 24 hr 04/27/20 Range/Units 04:50 Sodium 142 (140-148) mmol/L Potassium 4.5 (3.6-5.2) mmol/L Chloride 103 (100-108) mmol/L Carbon Dioxide 32 (21-32) mmol/L Anion Gap 6.6 (5.0-14.0) mmol/L BUN 42 H (7-18) mg/dL Creatinine 1.3 (0.8-1.3) mg/dL Est Cr Clr Drug Dosing 58.16 mL/min Estimated GFR (MDRD) 56 L (>60) Glucose 168 H (74-106) mg/dL Calcium 8.7 (8.5-10.1) mg/dL Med Orders - Current: Current Medications Acetaminophen (Tylenol) 650 mg PO Q4H PRN PRN Reason: Pain (Mild 1-3)/fever Hydrocodone Bitart/Acetaminophen ([place] 325-10 Mg) 1 tab PO Q4H PRN PRN Reason: Pain Last Admin: 04/27/20 08:06 Dose: 1 tab Documented by: Albuterol (Proventil Neb Soln) 2.5 mg NEB Q4H PRN PRN Reason: Shortness Of Breath/wheezing Amlodipine Besylate (Norvasc) 5 mg PO DAILY [facility] Last Admin: 04/27/20 08:03 Dose: 5 mg Documented by: Dexamethasone (Dexamethasone) 2 mg PO BID [facility] Last Admin: 04/27/20 08:02 Dose: 2 mg Documented by: Loratadine (Claritin) 10 mg PO DAILY [facility] Last Admin: 04/27/20 08:02 Dose: 10 mg Documented by: Lorazepam (Ativan) 0.5 mg IVPUSH Q4H PRN PRN Reason: Nausea/Vomiting Magnesium Hydroxide (Milk Of Magnesia) 30 ml PO Q12H PRN PRN Reason: Constipation Melatonin (Melatonin) 9 mg PO BEDTIME [facility] Last Admin: 04/26/20 20:58 Dose: 9 mg Documented by: Multivitamins/Minerals (Thera M Plus) 1 tab PO DAILY [facility] Last Admin: 04/27/20 08:02 Dose: 1 tab Documented by: Ondansetron HCl (Zofran) 4 mg IV Q6H PRN PRN Reason: Nausea/Vomiting Ondansetron HCl (Zofran Odt) 8 mg PO Q6H PRN PRN Reason: Nausea able to take PO Pantoprazole Sodium (Protonix) 40 mg PO ACBREAKFAST [facility] Last Admin: 04/27/20 08:03 Dose: 40 mg Documented by: Symbicort 160/4.5 (Inhaler (Ptom)) 0 each INH BIDRT [facility] Last Admin: 04/27/20 07:26 Dose: 2 each Documented by: Senna/Docusate Sodium (Senna Plus) 1 tab PO BID PRN PRN Reason: Constipation Sodium Chloride (Saline Flush) 10 ml FLUSH ASDIRECTED PRN PRN Reason: Keep Vein Open Discontinued Medications Furosemide (Lasix) 40 mg IVPUSH ONETIME ONE Stop: 04/25/20 15:31 Last Admin: 04/25/20 16:47 Dose: 40 mg Documented by: Pneumococcal Polyvalent Vaccine (Pneumovax 23) 0.5 ml IM .ONCE ONE Stop: 04/27/20 10:01
== END 2020-04-27 14:51 | disposition home or self-care (01) | DRG 948 ==
LOC: JP.MS 13:55
PROVIDERS: ADMIT Internal Medicine; ATTEND Internal Medicine
DX: R60.0 Localized edema (principal); C34.92 Malignant neoplasm of unspecified part of left bronchus or lung; C79.31 Secondary malignant neoplasm of brain; T38.7X5A Adverse effect of androgens and anabolic congeners, initial encounter; T45.1X5A Adverse effect of antineoplastic and immunosuppressive drugs, initial encounter; R06.00 Dyspnea, unspecified; I50.9 Heart failure, unspecified; H54.7 Unspecified visual loss; K21.9 Gastro-esophageal reflux disease without esophagitis; Z66 Do not resuscitate; Z20.822 Contact with and (suspected) exposure to COVID-19; Z86.711 Personal history of pulmonary embolism; Z79.899 Other long term (current) drug therapy; Z98.49 Cataract extraction status, unspecified eye
CPT/HCPCS: 0241U; 36415; 71046; 80048; 80053; 85027; 90732; 93306; 93970; 93970-26; 94640; 97116-GP; 97161-GP; 99222; 99232; 99238; A9270-GY; J1940; J8540

== ENCOUNTER 2020-08-11 08:26 | Inpatient (IN) | payer MEDICARE, BC ==
[2020-08-11] MEDS ORDERED: Sodium Chloride 0.9% 10 ML Syringe FLUSH PRN ×2 (09:12→14:34)
--- NOTE | 2020-08-11 09:13 | EDM.PDOC ---
ED HPI GENERAL MEDICAL PROBLEM - General Chief Complaint: Flank Pain Stated Complaint: CANCER PATIENT Time Seen by Provider: 08/11/20 09:00 Source of Information: Reports: Patient, Family, Old Records, RN History Limitations: Reports: No Limitations - History of Present Illness INITIAL COMMENTS - FREE TEXT/NARRATIVE: 64 yo male with metastatic lung CA is here accompanied by his for increased SOB, R chest wall pain, and a cough. He has been getting worse for about a week and recently had a chest CT scan and was recently put on oxycodone 5 mg doses for pain relief. No fevers. Is on Xarelto for a pHx of PE. Had a CTA chest 2 days ago that showed no new PE's. Onset: Today Onset Date: 08/11/20 Duration: Hour(s):, Constant Location: Reports: Chest Quality: Reports: Sharp Severity: Moderate Improves with: Reports: Immobilization, Rest Worsens with: Reports: Movement Context: Reports: Other (See HPI) Associated Symptoms: Reports: Chest Pain (R sided), Cough, Shortness of Breath. 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 (see below) (oxycodone) - Related Data Allergies Allergy/AdvReac Type Severity Reaction Status Date / Time No Known Allergies Allergy Verified 08/11/20 08:38 Home Meds: Home Meds Acetaminophen/HYDROcodone [[place] 325-10 MG] 1 tab PO Q6H PRN 11/29/19 [History] Albuterol Sulfate [Proair Hfa] 1 - 2 puff IH Q4H PRN 11/29/19 [History] Docusate Sodium/Sennosides [Senokot-S] 1 each PO BID PRN 11/29/19 [History] Fluticasone Propionate [Flonase] 2 spray NS DAILY PRN 11/29/19 [History] Loratadine [Claritin] 10 mg PO DAILY 11/29/19 [History] Multivitamin [Multi-Day Vitamins] 1 each PO DAILY 11/29/19 [History] Omeprazole 40 mg PO DAILY 11/29/19 [History] Ondansetron [Zofran] 8 mg PO Q8H PRN 11/29/19 [History] Urea [Urea 40% Crm] 1 applic TOP BID PRN 11/29/19 [History] amLODIPine [Norvasc] 5 mg PO DAILY 11/29/19 [History] dexAMETHasone [Dexamethasone] 2 mg PO BID 11/29/19 [History] Formoterol Fumarate [Perforomist] 20 mcg INH BID 08/09/20 [History] Rivaroxaban [Xarelto] 20 mg PO DAILY 08/09/20 [History] hydroCHLOROthiazide [Hydrochlorothiazide] 25 mg PO DAILY 08/09/20 [History] predniSONE [Prednisone] 10 mg PO DAILY 08/09/20 [History] Benzonatate [Tessalon Perle] 100 mg PO TID PRN 08/11/20 [History] Fish Oil/[place]-3 Fatty Acids [Fish Oil 1,000 MG] 1 tab PO DAILY 08/11/20 [History] LORazepam [Ativan] 1 mg PO Q8H PRN 08/11/20 [History] oxyCODONE 5 mg PO Q4H PRN 08/11/20 [History] Past Medical History HEENT History: Reports: Cataract, Impaired Vision Cardiovascular History: Reports: Hypertension Respiratory History: Reports: PE, Other (See Below) Other Respiratory History: LUNG CA Gastrointestinal History: Reports: GERD Genitourinary History: Reports: Other (See Below) Other Genitourinary History: TROUBLE URINATING Neurological History: Reports: Other (See Below) Other Neuro History: BRAIN TUMOR Endocrine/Metabolic History: Reports: Obesity/BMI 30+ Hematologic History: Reports: None Immunologic History: Reports: None Oncologic (Cancer) History: Reports: Brain, Lung Dermatologic History: Reports: None - Infectious Disease History Infectious Disease History: Reports: Chicken Pox, Measles, Mumps - Past Surgical History Head Surgeries/Procedures: Reports: None HEENT Surgical History: Reports: Cataract Surgery Other HEENT Surgeries/Procedures: Tumor removal during brain sugery 4 years ago. Cardiovascular Surgical History: Reports: None Respiratory Surgical History: Reports: Lung Resection Other Respiratory Surgeries/Procedures: LEFT UPPER LOBE GI Surgical History: Reports: Colonoscopy, Hernia, Inguinal Male Surgical History: Reports: Circumcision Endocrine Surgical History: Reports: None Neurological Surgical History: Reports: Other (See Below) Other Neurological Surgeries/Procedures: BRAIN TUMORS REMOVED Oncologic Surgical History: Reports: None Dermatological Surgical History: Reports: None Social & Family History - Family History Family Medical History: No Pertinent Family History - Tobacco Use Tobacco Use Status *Q: Never Tobacco User Second Hand Smoke Exposure: No - Caffeine Use Caffeine Use: Reports: Coffee, Soda - Recreational Drug Use Recreational Drug Use: No ED ROS GENERAL - Review of Systems Review Of Systems: See Below Constitutional: Reports: No Symptoms HEENT: Reports: No Symptoms Respiratory: Reports: Shortness of Breath, Pleuritic Chest Pain, Cough. Denies: Wheezing, Sputum, Hemoptysis Cardiovascular: Reports: No Symptoms, Chest Pain (chest wall, worse with movement or breathing. ) GI/Abdominal: Reports: No Symptoms : Reports: No Symptoms Musculoskeletal: Reports: No Symptoms Skin: Reports: No Symptoms Neurological: Reports: Confusion (from mets to his brain, not new) ED EXAM, GENERAL - Physical Exam Exam: See Below Exam Limited By: No Limitations General Appearance: Alert, WD/WN, Mild Distress Eye Exam: Bilateral Eye: Normal Inspection Ears: Normal External Exam, Normal Canal, Hearing Grossly Normal Ear Exam: Bilateral Ear: Auricle Normal, Canal Normal Nose: Normal Inspection, No Blood Throat/Mouth: Normal Oropharynx, Normal Voice, No Airway Compromise, Other (ddry oral mucosa) Head: Atraumatic, Normocephalic Neck: Normal Inspection Respiratory/Chest: Rhonchi (? L > R , hard to tell due to shallowness of breaths. ), Other (increased rate, breaths shallow). No: Chest Non-Tender (tender R chest wall, L chest wall and posteriorly) Cardiovascular: Regular Rate, Rhythm Peripheral Pulses: 0: Dorsalis Pedis (R) GI/Abdominal: Normal Bowel Sounds, Soft, Non-Tender, No Distention, Other (obese) Extremities: Normal Inspection, Normal Range of Motion, Non-Tender, No Pedal Edema Neurological: Alert, CN II-XII Intact, No Motor/Sensory Deficits. No: Normal Cognition (mentally slow, poor historian) Psychiatric: Normal Affect, Normal Mood Skin Exam: Warm, Dry, Intact, Normal Color, No Rash Course - Vital Signs Text/Narrative:: Dr. Brizuela called @ 1043h Last Recorded V/S: Last Vital Signs Temp 36.7 C 08/11/20 08:34 Pulse 107 H 08/11/20 08:34 Resp 22 H 08/11/20 08:34 BP 149/93 H 08/11/20 08:34 Pulse Ox 94 L 08/11/20 08:34 - Orders/Labs/Meds Orders: Active Orders 24 hr Category Date Time Status Oxygen Therapy Adult [Oxygen Therapy, ED] [] Care 08/11/20 09:12 Active ASDIRECTED NS + KCl 20mEq/L [Normal Saline with 20 mEq KCl] 1,000 Med 08/11/20 10:15 Active ml IV ASDIRECTED Sodium Chloride 0.9% [Saline Flush] Med 08/11/20 09:12 Active 10 ml FLUSH ASDIRECTED PRN fentaNYL [Duragesic] Med 08/11/20 09:30 Active 12 mcg TRDERM Q72H Saline Lock Insert [OM.PC] Routine Oth 08/11/20 09:12 Ordered Medication Orders Fentanyl (Fentanyl 12 Mcg/Hr Transdermal Patch) 12 mcg TRDERM Q72H RAYMOND Last Admin: 08/11/20 09:36 Dose: 12 mcg Documented by: JENNIFER Potassium Chloride/Sodium Chloride (Normal Saline With 20 Meq Kcl) 1,000 mls @ 1,000 mls/hr IV ASDIRECTED RAYMOND Last Admin: 08/11/20 11:04 Dose: 1,000 mls/hr Documented by: JENNIFER Sodium Chloride (Sodium Chloride 0.9% 10 Ml Syringe) 10 ml FLUSH ASDIRECTED PRN PRN Reason: Keep Vein Open Last Admin: 08/11/20 09:39 Dose: 10 ml Documented by: JENNIFER Labs: Laboratory Tests 08/11/20 08/11/20 08/11/20 Range/Units 09:35 09:35 09:54 WBC 12.6 H (4.5-11.0) K/uL RBC 4.26 L (4.30-5.90) M/uL Hgb 13.7 (12.0-15.0) g/dL Hct 43.3 (40.0-54.0) % MCV 102 H (80-98) fL MCH 32 H (27-31) pg MCHC 32 (32-36) % Plt Count 291 (150-400) K/uL Sodium 140 (140-148) mmol/L Potassium 3.7 (3.6-5.2) mmol/L Chloride 98 L (100-108) mmol/L Carbon Dioxide 32 (21-32) mmol/L Anion Gap 13.7 (5.0-14.0) mmol/L BUN 28 H (7-18) mg/dL Creatinine 1.2 (0.8-1.3) mg/dL Est Cr Clr Drug Dosing 64.68 mL/min Estimated GFR (MDRD) > 60 (>60) Glucose 141 H (74-106) mg/dL Calcium 10.0 (8.5-10.1) mg/dL Troponin I < 0.017 (0.000-0.056) ng/mL C-Reactive Protein 0.74 H (0.0-0.3) mg/dL Urine Color Yellow (YELLOW) Urine Appearance Slightly cloudy A (CLEAR) Urine pH 5.5 (5.0-8.0) Ur Specific [place] >= 1.030 (1.008-1.030) Urine Protein Negative (NEGATIVE) mg/dL Urine Glucose (UA) Negative (NEGATIVE) mg/dL Urine Ketones Trace H (NEGATIVE) mg/dL Urine Occult Blood Negative (NEGATIVE) Urine Nitrite Negative (NEGATIVE) Urine Bilirubin Small H (NEGATIVE) Urine Urobilinogen 0.2 (0.2-1.0) EU/dL Ur Leukocyte Esterase Negative (NEGATIVE) Urine RBC 0-5 (0-5) Urine WBC 0-5 (0-5) Ur Epithelial Cells Rare Amorphous Sediment Not seen Urine Bacteria Not seen Urine Mucus Few Meds: Medications Generic Name Dose Route Start Last Admin Trade Name Freq PRN Reason Stop Dose Admin Fentanyl 12 mcg 08/11/20 09:30 08/11/20 09:36 Fentanyl 12 Mcg/Hr Transdermal Patch TRDERM 12 mcg Q72H RAYMOND Administration Potassium Chloride/Sodium Chloride 1,000 mls @ 1,000 mls/hr 08/11/20 10:15 08/11/20 11:04 Normal Saline With 20 Meq Kcl IV 1,000 mls/hr ASDIRECTED RAYMOND Administration Sodium Chloride 10 ml 08/11/20 09:12 08/11/20 09:39 Sodium Chloride 0.9% 10 Ml Syringe FLUSH 10 ml ASDIRECTED PRN Administration Keep Vein Open Discontinued Medications Generic Name Dose Route Start Last Admin Trade Name Freq PRN Reason Stop Dose Admin Oxycodone HCl 5 mg 08/11/20 09:17 08/11/20 09:36 Oxycodone 5 Mg Tab PO 08/11/20 09:18 5 mg ONETIME ONE Administration Rivaroxaban 20 mg 08/11/20 10:00 08/11/20 09:40 Rivaroxaban 10 Mg Tab PO 08/11/20 10:01 20 mg ONETIME ONE Administration Simethicone 160 mg 08/11/20 10:40 08/11/20 11:07 Simethicone 80 Mg Tab.Chew PO 08/11/20 10:41 160 mg ONETIME ONE Administration - Radiology Interpretation Free Text/Narrative:: CXR-nothing acute Departure - Departure Time of Disposition: 13:30 Disposition: Refer to Observation Condition: Fair Clinical Impression: Rib pain, Hypoxia - Discharge Information *PRESCRIPTION DRUG MONITORING PROGRAM REVIEWED*: No *COPY OF PRESCRIPTION DRUG MONITORING REPORT IN PATIENT ADITYA: No Referrals: PCP,None [Primary Care Provider] - Forms: ED Department Discharge Sepsis Event Note (ED) - Evaluation Sepsis Screening Result: No Definite Risk - Focused Exam Vital Signs: Vital Signs Temp Pulse Resp BP Pulse Ox 08/11/20 08:34 36.7 C 107 H 22 H 149/93 H 94 L 08/11/20 08:32 22 H 94 L 08/11/20 08:31 36.7 C 107 H 24 H 149/93 H 78 L - My Orders Last 24 Hours: My Active Orders 08/11/20 09:12 Oxygen Therapy Adult [Oxygen Therapy, ED] [RC] ASDIRECTED Sodium Chloride 0.9% [Saline Flush] 10 ml FLUSH ASDIRECTED PRN Saline Lock Insert [OM.PC] Routine 08/11/20 09:30 fentaNYL [Duragesic] 12 mcg TRDERM Q72H 08/11/20 10:15 NS + KCl 20mEq/L [Normal Saline with 20 mEq KCl] 1,000 ml IV ASDIRECTED - Assessment/Plan Last 24 Hours: My Active Orders 08/11/20 09:12 Oxygen Therapy Adult [Oxygen Therapy, ED] [RC] ASDIRECTED Sodium Chloride 0.9% [Saline Flush] 10 ml FLUSH ASDIRECTED PRN Saline Lock Insert [OM.PC] Routine 08/11/20 09:30 fentaNYL [Duragesic] 12 mcg TRDERM Q72H 08/11/20 10:15 NS + KCl 20mEq/L [Normal Saline with 20 mEq KCl] 1,000 ml IV ASDIRECTED
[2020-08-11] MEDS ORDERED: oxyCODONE 5 MG Tab PO ONE (09:17)
[2020-08-11] MEDS: fentaNYL 12 MCG/HR Transdermal Patch TRDERM SCH (09:36)
[2020-08-11] MEDS ORDERED: Rivaroxaban 10 MG Tab PO ONE (10:00)
[2020-08-11] MEDS ORDERED: NS + KCl 20mEq/L 1,000 ML IV SCH (10:15)
[2020-08-11] MEDS ORDERED: Simethicone 80 MG Tab.Chew PO ONE (10:40)
--- NOTE | 2020-08-11 10:45 | CR ---
CHEST: Portable 08/11/2020 at 10:18 AM CLINICAL HISTORY:Hypoxia, chest pain COMPARISON:CT chest 08/09/2020 FINDINGS: There is less than optimal inspiration which exaggerates lung markings. There is opacification over the left hemithorax. 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 There is some patchy airspace disease in left lower lobe which is felt to be some atelectasis. There is likely a small left effusion. Patient has an [id number] catheter.. Impression: Poor inspiratory level Partial opacification left hemithorax is due to significant mediastinal lipomatosis Patchy airspace disease left lower lobe most likely patchy atelectasis Gaseous distention of the colon
--- NOTE | 2020-08-11 13:49 | PCM.HP.2 ---
H&P History of Present Illness - General Date of Service: 08/11/20 Admit Problem/Dx: Admission Diagnosis/Problem Admission Diagnosis/Problem Hypoxemia Source of Information: Patient, Family, Old Records, Provider, RN Notes Reviewed History Limitations: Reports: No Limitations - History of Present Illness Initial Comments - Free Text/Narative: Mr. Richardson is a 64-year-old gentleman who was admitted through the emergency department with shortness of breath and generalized weakness. He has a known history of non-small cell lung cancer with known metastatic disease to the b rain. He is status post previous JACKERMAN radiation therapy as well as chemotherapy. He has been off of active treatment now for the past 3 to 4 months. Over the past 2 weeks he has developed a nonproductive cough and progressive shortness of breath as well as weakness. During this period of time his appetite has been diminished. He has been evaluated in the clinic as well as the emergency department. Previous CT scan of the chest did document a left pulmonary embolism. He has been on long-term oral anticoagulation with Xarelto since that time. He also has experienced increased pain in his back and chest and abdomen. He has been felt to have probable viral respiratory tract infection and has been on inhaler therapy as well as increased dose of steroids. Last visit was in the emergency department 2 days ago, CT scan of the chest was repeated at that time and showed evidence of the previously known pulmonary embolism but no other new abnormalities. His weakness is now progressed to the point that he is unable to transfer or ambulate independently. Chest x-ray obtained today does show some infiltrate in the right lung, question atelectasis versus infection. White blood cell count is mildly elevated. He has been more short of breath and on evaluation today was found to be hypoxic on room air. He denies any previous history of cardiac disease. - Related Data Allergies/Adverse Reactions: Allergies Allergy/AdvReac Type Severity Reaction Status Date / Time No Known Allergies Allergy Verified 08/11/20 08:38 Home Medications: Home Meds Acetaminophen/HYDROcodone [[place] 325-10 MG] 1 tab PO Q6H PRN 11/29/19 [History] Albuterol Sulfate [Proair Hfa] 1 - 2 puff IH Q4H PRN 11/29/19 [History] Docusate Sodium/Sennosides [Senokot-S] 1 each PO BID PRN 11/29/19 [History] Fluticasone Propionate [Flonase] 2 spray NS DAILY PRN 11/29/19 [History] Loratadine [Claritin] 10 mg PO DAILY 11/29/19 [History] Multivitamin [Multi-Day Vitamins] 1 each PO DAILY 11/29/19 [History] Omeprazole 40 mg PO DAILY 11/29/19 [History] Ondansetron [Zofran] 8 mg PO Q8H PRN 11/29/19 [History] Urea [Urea 40% Crm] 1 applic TOP BID PRN 11/29/19 [History] amLODIPine [Norvasc] 5 mg PO DAILY 11/29/19 [History] dexAMETHasone [Dexamethasone] 2 mg PO BID 11/29/19 [History] Formoterol Fumarate [Perforomist] 20 mcg INH BID 08/09/20 [History] Rivaroxaban [Xarelto] 20 mg PO DAILY 08/09/20 [History] hydroCHLOROthiazide [Hydrochlorothiazide] 25 mg PO DAILY 08/09/20 [History] predniSONE [Prednisone] 10 mg PO DAILY 08/09/20 [History] Benzonatate [Tessalon Perle] 100 mg PO TID PRN 08/11/20 [History] Fish Oil/[place]-3 Fatty Acids [Fish Oil 1,000 MG] 1 tab PO DAILY 08/11/20 [History] LORazepam [Ativan] 1 mg PO Q8H PRN 08/11/20 [History] oxyCODONE 5 mg PO Q4H PRN 08/11/20 [History] Past Medical History HEENT History: Reports: Cataract, Impaired Vision Cardiovascular History: Reports: Hypertension Respiratory History: Reports: PE, Other (See Below) Other Respiratory History: LUNG CA Gastrointestinal History: Reports: GERD Genitourinary History: Reports: Other (See Below) Other Genitourinary History: TROUBLE URINATING Neurological History: Reports: Other (See Below) Other Neuro History: BRAIN TUMOR Endocrine/Metabolic History: Reports: Obesity/BMI 30+ Hematologic History: Reports: None Immunologic History: Reports: None Oncologic (Cancer) History: Reports: Brain, Lung Dermatologic History: Reports: None - Infectious Disease History Infectious Disease History: Reports: Chicken Pox, Measles, Mumps - Past Surgical History Head Surgeries/Procedures: Reports: None HEENT Surgical History: Reports: Cataract Surgery Other HEENT Surgeries/Procedures: Tumor removal during brain sugery 4 years ago. Cardiovascular Surgical History: Reports: None Respiratory Surgical History: Reports: Lung Resection Other Respiratory Surgeries/Procedures: LEFT UPPER LOBE GI Surgical History: Reports: Colonoscopy, Hernia, Inguinal Male Surgical History: Reports: Circumcision Endocrine Surgical History: Reports: None Neurological Surgical History: Reports: Other (See Below) Other Neurological Surgeries/Procedures: BRAIN TUMORS REMOVED Oncologic Surgical History: Reports: None Dermatological Surgical History: Reports: None Social & Family History - Family History Family Medical History: No Pertinent Family History - Tobacco Use Tobacco Use Status *Q: Never Tobacco User Second Hand Smoke Exposure: No - Caffeine Use Caffeine Use: Reports: Coffee, Soda - Recreational Drug Use Recreational Drug Use: No H&P Review of Systems - Review of Systems: Review Of Systems: See Below General: Reports: Malaise, Weakness, Fatigue, Decreased Appetite. Denies: Fever, Chills HEENT: Reports: No Symptoms Pulmonary: Reports: Shortness of Breath, Cough. Denies: Wheezing, Pleuritic Chest Pain, Sputum, Hemoptysis Cardiovascular: Reports: Dyspnea on Exertion, Edema. Denies: Chest Pain, Palpitations, Orthopnea, PND, Lightheadedness Gastrointestinal: Reports: Abdominal Pain, Distension. Denies: Constipation, Diarrhea, Difficulty Swallowing, Hematemesis, Hematochezia, Melena, Nausea, Vomiting Genitourinary: Reports: No Symptoms Musculoskeletal: Reports: No Symptoms Skin: Reports: No Symptoms Psychiatric: Reports: No Symptoms Neurological: Reports: No Symptoms Hematologic/Lymphatic: Reports: No Symptoms Immunologic: Reports: No Symptoms Exam - Exam Exam: See Below - Vital Signs Vital Signs: Last Vital Signs Temp 98.1 F 08/11/20 08:34 Pulse 107 H 08/11/20 08:34 Resp 22 H 08/11/20 08:34 BP 149/93 H 08/11/20 08:34 Pulse Ox 94 L 08/11/20 08:34 Weight: 160 lb - Exam Quality Assessment: Supplemental Oxygen, DVT Prophylaxis General: Alert, Oriented, Cooperative, Moderate Distress HEENT: Conjunctiva Clear, Hearing Intact, Normal Nasal Septum, Posterior Pharynx Clear, Pupils Equal. No: Mucosa Moist & Micro Neck: Supple, Trachea Midline, +2 Carotid Pulse wo Bruit Lungs: Clear to Auscultation, Normal Respiratory Effort. No: Crackles, Rales, Rhonchi, Wheezing Cardiovascular: Regular Rate, Regular Rhythm, Normal S1, Normal S2. No: Systolic Murmur, Diastolic Murmur GI/Abdominal Exam: Soft, Non-Tender, No Organomegaly, No Distention Back Exam: Normal Inspection, Full Range of Motion Extremities: Non-Tender, Pedal Edema Skin: Warm, Dry, Intact Neurological: Cranial Nerves Intact, Strength Equal Bilateral, Normal Speech, Normal Tone, Sensation Intact. No: Focal Deficit Neuro Extensive - Mental Status: Alert, Oriented x3, Normal Mood/Affect, Normal Cognition, Memory Intact - Patient Data Lab Results Last 24 hrs: Laboratory Results - last 24 hr 08/11/20 08/11/20 08/11/20 Range/Units 09:35 09:35 09:54 WBC 12.6 H (4.5-11.0) K/uL RBC 4.26 L (4.30-5.90) M/uL Hgb 13.7 (12.0-15.0) g/dL Hct 43.3 (40.0-54.0) % MCV 102 H (80-98) fL MCH 32 H (27-31) pg MCHC 32 (32-36) % Plt Count 291 (150-400) K/uL Sodium 140 (140-148) mmol/L Potassium 3.7 (3.6-5.2) mmol/L Chloride 98 L (100-108) mmol/L Carbon Dioxide 32 (21-32) mmol/L Anion Gap 13.7 (5.0-14.0) mmol/L BUN 28 H (7-18) mg/dL Creatinine 1.2 (0.8-1.3) mg/dL Est Cr Clr Drug Dosing 64.68 mL/min Estimated GFR (MDRD) > 60 (>60) Glucose 141 H (74-106) mg/dL Calcium 10.0 (8.5-10.1) mg/dL Troponin I < 0.017 (0.000-0.056) ng/mL C-Reactive Protein 0.74 H (0.0-0.3) mg/dL Urine Color Yellow (YELLOW) Urine Appearance Slightly cloudy A (CLEAR) Urine pH 5.5 (5.0-8.0) Ur Specific [place] >= 1.030 (1.008-1.030) Urine Protein Negative (NEGATIVE) mg/dL Urine Glucose (UA) Negative (NEGATIVE) mg/dL Urine Ketones Trace H (NEGATIVE) mg/dL Urine Occult Blood Negative (NEGATIVE) Urine Nitrite Negative (NEGATIVE) Urine Bilirubin Small H (NEGATIVE) Urine Urobilinogen 0.2 (0.2-1.0) EU/dL Ur Leukocyte Esterase Negative (NEGATIVE) Urine RBC 0-5 (0-5) Urine WBC 0-5 (0-5) Ur Epithelial Cells Rare Amorphous Sediment Not seen Urine Bacteria Not seen Urine Mucus Few Result Diagrams: 08/11/20 09:35 08/11/20 09:35 Sepsis Event Note - Evaluation Sepsis Screening Result: No Definite Risk - Focused Exam Vital Signs: Vital Signs Temp Pulse Resp BP Pulse Ox 08/11/20 08:34 98.1 F 107 H 22 H 149/93 H 94 L 08/11/20 08:32 22 H 94 L 08/11/20 08:31 98.1 F 107 H 24 H 149/93 H 78 L *Q Meaningful Use (ADM) - VTE *Q VTE Pharmacological Contraindications *Q: High INR Value - VTE Risk Assess *Q Each Risk Factor Represents 1 Point: Serious lung disease including pneumonia Total Score 1 Point Risk Factors: 1 Each Risk Factor Represents 2 Points: Age 60 - 74 Years, Malignancy (present or previous) Total Score 2 Point Risk Factors: 4 Each Risk Factor Represents 3 Points: History of DVT/PE Total Score 3 Point Risk Factors: 3 Each Risk Factor Represents 5 Points: None Total Score 5 Point Risk Factors: 0 Venous Thromboembolism Risk Factor Score *Q: 8 Problem List Initiated/Reviewed/Updated: Yes Orders Last 24hrs: Active Orders 24 hr Category Date Time Status Patient Status Manage Transfer [TRANSFER] Routine ADT 08/11/20 13:31 Ordered Oxygen Therapy Adult [Oxygen Therapy, ED] [RC] Care 08/11/20 09:12 Active ASDIRECTED CULTURE BLOOD [BC] Stat Lab 08/11/20 13:25 Ordered CULTURE BLOOD [BC] Stat Lab 08/11/20 13:25 Ordered Doxycycline [Vibramycin] 100 mg Med 08/11/20 14:00 Active Sodium Chloride 0.9% [Normal Saline] 100 ml IV Q12H NS + KCl 20mEq/L [Normal Saline with 20 mEq KCl] 1,000 Med 08/11/20 10:15 Active ml IV ASDIRECTED Sodium Chloride 0.9% [Saline Flush] Med 08/11/20 09:12 Active 10 ml FLUSH ASDIRECTED PRN cefTRIAXone [Rocephin] 1 gm Med 08/11/20 14:59 Active Sodium Chloride 0.9% [Normal Saline] 50 ml IV Q24H fentaNYL [Duragesic] Med 08/11/20 09:30 Active 12 mcg TRDERM Q72H Blood Culture x2 Reflex Set [OM.PC] Urgent Oth 08/11/20 13:25 Ordered Saline Lock Insert [OM.PC] Routine Oth 08/11/20 09:12 Ordered Resuscitation Status Routine Resus Stat 08/11/20 13:35 Ordered Medication Orders Fentanyl (Fentanyl 12 Mcg/Hr Transdermal Patch) 12 mcg TRDERM Q72H RAYMOND Last Admin: 08/11/20 09:36 Dose: 12 mcg Documented by: JENNIFER Potassium Chloride/Sodium Chloride (Normal Saline With 20 Meq Kcl) 1,000 mls @ 1,000 mls/hr IV ASDIRECTED RAYMOND Last Admin: 08/11/20 11:04 Dose: 1,000 mls/hr Documented by: JENNIFER Ceftriaxone Sodium 1 gm/ (Sodium Chloride) 50 mls @ 100 mls/hr IV Q24H RAYMOND Doxycycline Hyclate 100 mg/ (Sodium Chloride) 100 mls @ 100 mls/hr IV Q12H RAYMOND Sodium Chloride (Sodium Chloride 0.9% 10 Ml Syringe) 10 ml FLUSH ASDIRECTED PRN PRN Reason: Keep Vein Open Last Admin: 08/11/20 09:39 Dose: 10 ml Documented by: JENNIFER Assessment/Plan Comment:: ASSESSMENT AND PLAN HYPOXIC RESPIRATORY FAILURE-he has a known history of left lung cancer status post previous partial left lung resection. Complicated by recent pulmonary embolism in the left lung. Over the past several days has become progressively more short of breath and weak. CT scan 2 days ago showed no new pulmonary embolism. Chest x-ray today does show some patchy infiltrate right lung, atelectasis versus infection. White blood cell count is modestly elevated. -Further evaluation as to underlying cause -Echocardiogram when available -Supplemental oxygen as needed -Consider trial of diuretic therapy PROBABLE PNEUMONIA-evidence of infiltrate noted on chest x-ray -Blood cultures pending -IV doxycycline and ceftriaxone pending culture results GENERALIZED WEAKNESS-likely secondary to current infection and shortness of breath as well as underlying lung cancer. -Physical therapy consult NON-SMALL CELL CANCER OF THE LUNG STAGE IV -CT scan of the head with contrast -Outpatient follow-up with oncology RECENT PULMONARY EMBOLISM -Continue current oral anticoagulation MAINTENANCE ISSUES -DVT prophylaxis; current therapy with Xarelto should provide adequate DVT prophylaxis -GI prophylaxis; continue outpatient PPI therapy -Velazquez catheter; not indicated -Nutrition; 2 g sodium diet -Nicotine dependence; not required CODE STATUS-DNR/DNI ADMISSION STATUS-patient will be admitted to inpatient status, expect at least a 2 night hospital stay for evaluation and management of problems as outlined above. At the time of this admission I do not reasonably expected evaluation and management of this problem will require more than a 96 hour hospital stay. DISPOSITION-anticipate discharge to home after the hospital stay. - Mortality Measure Prognosis:: Poor
[2020-08-11] MEDS ORDERED: Doxycycline 100 MG in Sodium Chloride 0.9% 100 ML IV SCH (14:00)
[2020-08-11] MEDS ORDERED: UREA 40% TOP PRN (14:34)
[2020-08-11] MEDS ORDERED: Acetaminophen 325 MG Tab PO PRN (14:34)
[2020-08-11] MEDS ORDERED: Ondansetron 4 MG/2 ML SDV IV PRN (14:34)
[2020-08-11] MEDS: oxyCODONE 5 MG Tab PO PRN ×2 (14:50→18:27)
[2020-08-11] MEDS ORDERED: cefTRIAXone 1 GM in Sodium Chloride 0.9% 50 ML IV SCH (14:59)
[2020-08-11] MEDS: Sodium Chloride 0.9% 1,000 ML IV SCH ×2 (16:15→17:58)
[2020-08-11] MEDS: HYDROmorphone 0.5 MG/0.5 ML Syringe IVPUSH PRN ×3 (16:16→20:25)
[2020-08-11] MEDS: Arformoterol 15 MCG/2 ML Neb Soln INH SCH (20:17)
[2020-08-11] MEDS: Dexamethasone 2 MG Tab PO SCH (20:17)
[2020-08-12] MEDS: oxyCODONE 5 MG Tab PO PRN ×6 (01:22→18:50)
[2020-08-12] MEDS: Doxycycline 100 MG in Sodium Chloride 0.9% 100 ML IV SCH ×2 (02:36→14:04)
[2020-08-12] MEDS: Arformoterol 15 MCG/2 ML Neb Soln INH SCH ×2 (06:58→21:14)
[2020-08-12] MEDS: Sodium Chloride 0.9% 1,000 ML IV SCH (07:45)
[2020-08-12] MEDS: Pantoprazole 40 MG Tab.CR PO SCH (07:45)
[2020-08-12] MEDS: Hydrochlorothiazide 25 MG Tab PO SCH (09:26)
[2020-08-12] MEDS: Dexamethasone 2 MG Tab PO SCH ×2 (09:26→21:14)
[2020-08-12] MEDS: Rivaroxaban 10 MG Tab PO SCH (09:32)
--- NOTE | 2020-08-12 10:31 | PCM.PN ---
- General Info Date of Service: 08/12/20 Subjective Update: Mr. Richardson has improved significantly since admission. Shortness of breath has improved although he continues to require supplemental oxygen. Cough has also improved. He feels somewhat stronger today with improved energy level and improved appetite. Functional Status: Reports: Ambulating, Urinating - Review of Systems General: Reports: Weakness, Fatigue. Denies: Fever, Chills Pulmonary: Reports: Shortness of Breath, Cough. Denies: Pleuritic Chest Pain, Sputum, Hemoptysis, Wheezing Cardiovascular: Reports: Dyspnea on Exertion. Denies: Chest Pain, Palpitations, Orthopnea, PND, Edema, Lightheadedness Gastrointestinal: Reports: No Symptoms - Patient Data Vitals - Most Recent: Last Vital Signs Temp 97.9 F 08/12/20 07:46 Pulse 92 08/12/20 07:46 Resp 12 08/12/20 07:46 BP 136/85 08/12/20 04:00 Pulse Ox 96 08/12/20 07:46 Weight - Most Recent: 190 lb I&O - Last 24 Hours: Intake & Output 08/11/20 08/12/20 08/12/20 22:59 06:59 14:59 Intake Total 150 1297 Output Total 75 200 150 Balance 75 1097 -150 Lab Results Last 24 Hours: Laboratory Results - last 24 hr 08/12/20 08/12/20 Range/Units 05:30 05:30 WBC 11.4 H (4.5-11.0) K/uL RBC 3.94 L (4.30-5.90) M/uL Hgb 13.0 (12.0-15.0) g/dL Hct 40.7 (40.0-54.0) % MCV 103 H (80-98) fL MCH 33 H (27-31) pg MCHC 32 (32-36) % Plt Count 269 (150-400) K/uL Neut % (Auto) 91.9 H (36-66) % Lymph % (Auto) 4.5 L (24-44) % [place] % (Auto) 3.4 (2-6) % Eos % (Auto) 0.0 L (2-4) % Baso % (Auto) 0.2 (0-1) % Sodium 141 (140-148) mmol/L Potassium 3.9 (3.6-5.2) mmol/L Chloride 101 (100-108) mmol/L Carbon Dioxide 30 (21-32) mmol/L Anion Gap 10.3 (5.0-14.0) mmol/L BUN 26 H (7-18) mg/dL Creatinine 0.9 (0.8-1.3) mg/dL Est Cr Clr Drug Dosing 86.74 mL/min Estimated GFR (MDRD) > 60 (>60) Glucose 108 H (74-106) mg/dL Calcium 9.4 (8.5-10.1) mg/dL Magnesium 2.0 (1.8-2.4) mg/dL Med Orders - Current: Current Medications Acetaminophen (Acetaminophen 325 Mg Tab) 650 mg PO Q4H PRN PRN Reason: Pain (Mild 1-3)/fever Last Admin: 08/11/20 14:51 Dose: 650 mg Documented by: Albuterol (Albuterol 8 Gm Inhaler) 0 gm INH Q4H PRN PRN Reason: Wheezing Arformoterol Tartrate (Arformoterol 15 Mcg/2 Ml Neb Soln) 15 mcg INH BIDRT [facility] Last Admin: 08/12/20 06:58 Dose: 15 mcg Documented by: Benzonatate (Benzonatate 100 Mg Cap) 100 mg PO TID PRN PRN Reason: Cough Dexamethasone (Dexamethasone 2 Mg Tab) 2 mg PO BID [facility] [place] Last Admin: 08/12/20 09:26 Dose: 2 mg Documented by: Fentanyl (Fentanyl 12 Mcg/Hr Transdermal Patch) 12 mcg TRDERM Q72H [facility] [place] Last Admin: 08/11/20 09:36 Dose: 12 mcg Documented by: Hydrochlorothiazide (Hydrochlorothiazide 25 Mg Tab) 25 mg PO DAILY [facility] [place] Last Admin: 08/12/20 09:26 Dose: 25 mg Documented by: Hydromorphone HCl (Hydromorphone 0.5 Mg/0.5 Ml Syringe) 0.5 mg IVPUSH Q2H PRN PRN Reason: Pain Last Admin: 08/11/20 20:25 Dose: 0.5 mg Documented by: Ceftriaxone Sodium 1 gm/ (Sodium Chloride) 50 mls @ 100 mls/hr IV Q24H [facility] Doxycycline Hyclate 100 mg/ (Sodium Chloride) 100 mls @ 100 mls/hr IV Q12H [facility] Last Admin: 08/12/20 02:36 Dose: 100 mls/hr Documented by: Urea 40% Cream (Ptom) 0 applic TOP BID PRN PRN Reason: Muscle soreness Ondansetron HCl (Ondansetron 4 Mg/2 Ml Sdv) 4 mg IV Q4H PRN PRN Reason: Nausea/Vomiting Oxycodone HCl (Oxycodone 5 Mg Tab) 10 mg PO Q4H PRN PRN Reason: Pain Last Admin: 08/12/20 09:25 Dose: 10 mg Documented by: Pantoprazole Sodium (Pantoprazole 40 Mg Tab.Cr) 40 mg PO ACBREAKFAST [facility] Last Admin: 08/12/20 07:45 Dose: 40 mg Documented by: Polyethylene Glycol (Polyethylene Glycol 3350 Powder 17 Gm Packet) 17 gm PO DAILY PRN PRN Reason: Constipation Rivaroxaban (Rivaroxaban 10 Mg Tab) 20 mg PO DAILY [facility] [place] Last Admin: 08/12/20 09:32 Dose: 20 mg Documented by: Senna/Docusate Sodium (Docusate Sodium/Sennosides 50-8.6 Mg Tab) 1 tab PO BID PRN PRN Reason: Constipation Sodium Chloride (Sodium Chloride 0.9% 10 Ml Syringe) 10 ml FLUSH ASDIRECTED PRN PRN Reason: Keep Vein Open Tamsulosin HCl (Tamsulosin 0.4 Mg Cap.Er) 0.4 mg PO BEDTIME [facility] Discontinued Medications Potassium Chloride/Sodium Chloride (Normal Saline With 20 Meq Kcl) 1,000 mls @ 1,000 mls/hr IV ASDIRECTED [facility] Last Admin: 08/11/20 11:04 Dose: 1,000 mls/hr Documented by: Ceftriaxone Sodium 1 gm/ (Sodium Chloride) 50 mls @ 100 mls/hr IV Q24H [facility] Stop: 08/11/20 18:00 Last Admin: 08/11/20 14:30 Dose: 100 mls/hr Documented by: Doxycycline Hyclate 100 mg/ (Sodium Chloride) 100 mls @ 100 mls/hr IV Q12H [facility] [place] Stop: 08/11/20 18:00 Last Admin: 08/11/20 14:55 Dose: 100 mls/hr Documented by: Sodium Chloride (Normal Saline) 1,000 mls @ 75 mls/hr IV ASDIRECTED [facility] [place] Last Admin: 08/12/20 07:45 Dose: 75 mls/hr Documented by: Oxycodone HCl (Oxycodone 5 Mg Tab) 5 mg PO ONETIME ONE Stop: 08/11/20 09:18 Last Admin: 08/11/20 09:36 Dose: 5 mg Documented by: Rivaroxaban (Rivaroxaban 10 Mg Tab) 20 mg PO ONETIME ONE Stop: 08/11/20 10:01 Last Admin: 08/11/20 09:40 Dose: 20 mg Documented by: Simethicone (Simethicone 80 Mg Tab.Chew) 160 mg PO ONETIME ONE Stop: 08/11/20 10:41 Last Admin: 08/11/20 11:07 Dose: 160 mg Documented by: Sodium Chloride (Sodium Chloride 0.9% 10 Ml Syringe) 10 ml FLUSH ASDIRECTED PRN PRN Reason: Keep Vein Open Last Admin: 08/11/20 09:39 Dose: 10 ml Documented by: - Exam Quality Assessment: Supplemental Oxygen, DVT Prophylaxis General: Alert, Oriented, Cooperative, Mild Distress Lungs: Clear to Auscultation, Normal Respiratory Effort, Decreased Breath Sounds Cardiovascular: Regular Rate, Regular Rhythm, No Murmurs GI/Abdominal Exam: Soft, Non-Tender, No Organomegaly, No Distention Extremities: Non-Tender, No Pedal Edema - Patient Data Lab Results Last 24 hrs: Laboratory Results - last 24 hr 08/12/20 08/12/20 Range/Units 05:30 05:30 WBC 11.4 H (4.5-11.0) K/uL RBC 3.94 L (4.30-5.90) M/uL Hgb 13.0 (12.0-15.0) g/dL Hct 40.7 (40.0-54.0) % MCV 103 H (80-98) fL MCH 33 H (27-31) pg MCHC 32 (32-36) % Plt Count 269 (150-400) K/uL Neut % (Auto) 91.9 H (36-66) % Lymph % (Auto) 4.5 L (24-44) % [place] % (Auto) 3.4 (2-6) % Eos % (Auto) 0.0 L (2-4) % Baso % (Auto) 0.2 (0-1) % Sodium 141 (140-148) mmol/L Potassium 3.9 (3.6-5.2) mmol/L Chloride 101 (100-108) mmol/L Carbon Dioxide 30 (21-32) mmol/L Anion Gap 10.3 (5.0-14.0) mmol/L BUN 26 H (7-18) mg/dL Creatinine 0.9 (0.8-1.3) mg/dL Est Cr Clr Drug Dosing 86.74 mL/min Estimated GFR (MDRD) > 60 (>60) Glucose 108 H (74-106) mg/dL Calcium 9.4 (8.5-10.1) mg/dL Magnesium 2.0 (1.8-2.4) mg/dL Result Diagrams: 08/12/20 05:30 08/12/20 05:30 Sepsis Event Note - Evaluation Sepsis Screening Result: Sepsis Risk - Focused Exam Vital Signs: Vital Signs Temp Pulse Resp BP Pulse Ox 08/12/20 07:46 97.9 F 92 12 96 08/12/20 06:58 96 08/12/20 04:00 98 F 17 136/85 95 08/12/20 00:00 96.8 F L 12 130/84 93 L - Problem List Review Problem List Initiated/Reviewed/Updated: Yes - My Orders Last 24 Hours: My Active Orders 08/11/20 Lunch 2 Gram Sodium Diet [DIET] 08/11/20 13:25 Blood Culture x2 Reflex Set [OM.PC] Urgent 08/11/20 13:35 Resuscitation Status Routine 08/11/20 13:41 CULTURE BLOOD [BC] Stat 08/11/20 14:12 CULTURE BLOOD [BC] Stat 08/11/20 14:34 Acetaminophen [TylenoL] 650 mg PO Q4H PRN Albuterol [Ventolin HFA] 0 gm INH Q4H PRN Benzonatate [Tessalon Perles] 100 mg PO TID PRN Docusate Sodium/Sennosides [Senna Plus] 1 tab PO BID PRN Ondansetron [Zofran] 4 mg IV Q4H PRN Sodium Chloride 0.9% [Saline Flush] 10 ml FLUSH ASDIRECTED PRN Urea [Urea 40% Crm] 0 applic TOP BID PRN oxyCODONE 10 mg PO Q4H PRN polyethylene glycoL 3350 [MiraLAX] 17 gm PO DAILY PRN 08/11/20 14:34 Patient Status [ADT] Routine Ambulate [RC] QID Height and Weight [RC] DAILY Intake and Output [RC] QSHIFT Notify Provider Vital Signs [RC] ASDIRECTED Oxygen Therapy [RC] PRN Peripheral IV Care [RC] . DIRECTED RT Post Treatment Assessment [RC] Click to Edit Up With Assistance [RC] ASDIRECTED Up to Chair [RC] QID VTE/DVT Education [RC] Per Unit Routine Vital Signs [RC] Q4H Consult to Physical Therapy [PT Evaluation and Treatment] [CONS] Routine Peripheral IV Insertion Adult [OM.PC] Routine VTE Pharmacological Contraindications [AST] Per Unit Routine 08/11/20 16:13 HYDROmorphone [Dilaudid] 0.5 mg IVPUSH Q2H PRN 08/11/20 21:00 Arformoterol [Brovana] 15 mcg INH BIDRT dexAMETHasone 2 mg PO BID 08/12/20 02:00 Doxycycline [Vibramycin] 100 mg Sodium Chloride 0.9% [Normal Saline] 100 ml IV Q12H 08/12/20 07:30 Pantoprazole [ProTONIX] 40 mg PO ACBREAKFAST 08/12/20 09:00 Rivaroxaban [Xarelto] 20 mg PO DAILY hydroCHLOROthiazide 25 mg PO DAILY 08/12/20 10:27 Tamsulosin [Flomax] 0.4 mg PO BEDTIME Convert IV to Saline Lock [OM.PC] Routine 08/12/20 10:28 Discontinue Telemetry Monitoring [Cardiac Monitoring Discontinue] [RC] Click to Edit 08/12/20 15:00 cefTRIAXone [Rocephin] 1 gm Sodium Chloride 0.9% [Normal Saline] 50 ml IV Q24H 08/13/20 05:00 BASIC METABOLIC PANEL,BMP [CHEM] Timed CBC WITH AUTO DIFF [HEME] Timed - Plan Plan:: ASSESSMENT AND PLAN HYPOXIC RESPIRATORY FAILURE-he has a known history of left lung cancer status post previous partial left lung resection. Complicated by recent pulmonary embolism in the left lung. Over the past several days has become progressively more short of breath and weak. CT scan 2 days ago showed no new pulmonary embolism. Chest x-ray today does show some patchy infiltrate right lung, atelectasis versus infection. White blood cell count is modestly elevated. Symptomatically improved since admission -Further evaluation as to underlying cause -Echocardiogram when available -Supplemental oxygen as needed PROBABLE PNEUMONIA-evidence of infiltrate noted on chest x-ray -Blood cultures pending -IV doxycycline and ceftriaxone pending culture results GENERALIZED WEAKNESS-likely secondary to current infection and shortness of breath as well as underlying lung cancer. Improved, feeling somewhat stronger today -Physical therapy consult NON-SMALL CELL CANCER OF THE LUNG STAGE IV -CT scan of the head with contrast pending -Outpatient follow-up with oncology RECENT PULMONARY EMBOLISM -Continue current oral anticoagulation MAINTENANCE ISSUES -DVT prophylaxis; current therapy with Xarelto should provide adequate DVT prophylaxis -GI prophylaxis; continue outpatient PPI therapy -Velazquez catheter; not indicated -Nutrition; 2 g sodium diet -Nicotine dependence; not required CODE STATUS-DNR/DNI ADMISSION STATUS-patient will be admitted to inpatient status, expect at least a 2 night hospital stay for evaluation and management of problems as outlined above. At the time of this admission I do not reasonably expected evaluation and management of this problem will require more than a 96 hour hospital stay. DISPOSITION-anticipate discharge to home after the hospital stay.
[2020-08-12] MEDS: Tamsulosin 0.4 MG Cap.ER PO SCH ×2 (10:58→21:14)
[2020-08-12] MEDS: HYDROmorphone 0.5 MG/0.5 ML Syringe IVPUSH PRN (12:19)
[2020-08-12] MEDS: cefTRIAXone 1 GM in Sodium Chloride 0.9% 50 ML IV SCH (15:39)
[2020-08-13] MEDS: oxyCODONE 5 MG Tab PO PRN ×4 (01:48→19:23)
[2020-08-13] MEDS: Doxycycline 100 MG in Sodium Chloride 0.9% 100 ML IV SCH ×2 (01:51→14:10)
[2020-08-13] MEDS: Arformoterol 15 MCG/2 ML Neb Soln INH SCH ×2 (06:58→21:16)
[2020-08-13] MEDS: Pantoprazole 40 MG Tab.CR PO SCH (08:14)
[2020-08-13] MEDS: HYDROmorphone 0.5 MG/0.5 ML Syringe IVPUSH PRN ×4 (08:17→19:24)
[2020-08-13] MEDS: Rivaroxaban 10 MG Tab PO SCH (08:20)
[2020-08-13] MEDS: Hydrochlorothiazide 25 MG Tab PO SCH (08:20)
[2020-08-13] MEDS: Dexamethasone 2 MG Tab PO SCH ×2 (08:20→21:16)
--- NOTE | 2020-08-13 11:11 | PCM.PN ---
- General Info Date of Service: 08/13/20 Subjective Update: Mr. Richardson continues to experience some difficulty with weakness, overall improved from admission. He is regaining some strength and able to ambulate more independently. Activity level is related to pain control and he is able to be much more active when his pain is adequately controlled. Functional Status: Reports: Tolerating Diet, Ambulating, Urinating - Review of Systems General: Reports: Weakness, Fatigue. Denies: Fever, Chills Pulmonary: Reports: Shortness of Breath, Cough. Denies: Pleuritic Chest Pain, Sputum, Hemoptysis, Wheezing Cardiovascular: Reports: Dyspnea on Exertion. Denies: Chest Pain, Palpitations, Orthopnea, PND, Edema, Lightheadedness Gastrointestinal: Reports: No Symptoms Genitourinary: Reports: No Symptoms - Patient Data Vitals - Most Recent: Last Vital Signs Temp 98.2 F 08/13/20 04:00 Pulse 94 08/13/20 06:58 Resp 20 08/13/20 04:00 BP 136/81 08/13/20 04:00 Pulse Ox 95 08/13/20 04:00 Weight - Most Recent: 190 lb I&O - Last 24 Hours: Intake & Output 08/12/20 08/13/20 08/13/20 22:59 06:59 14:59 Intake Total 60 Output Total 325 Balance -265 Lab Results Last 24 Hours: Laboratory Results - last 24 hr 08/13/20 08/13/20 Range/Units 05:30 05:30 WBC 6.6 (4.5-11.0) K/uL RBC 3.61 L (4.30-5.90) M/uL Hgb 11.9 L (12.0-15.0) g/dL Hct 37.5 L (40.0-54.0) % MCV 104 H (80-98) fL MCH 33 H (27-31) pg MCHC 32 (32-36) % Plt Count 243 (150-400) K/uL Neut % (Auto) 91.2 H (36-66) % Lymph % (Auto) 4.1 L (24-44) % [place] % (Auto) 4.3 (2-6) % Eos % (Auto) 0.2 L (2-4) % Baso % (Auto) 0.2 (0-1) % Sodium 142 (140-148) mmol/L Potassium 4.2 (3.6-5.2) mmol/L Chloride 102 (100-108) mmol/L Carbon Dioxide 32 (21-32) mmol/L Anion Gap 8.4 (5.0-14.0) mmol/L BUN 22 H (7-18) mg/dL Creatinine 0.9 (0.8-1.3) mg/dL Est Cr Clr Drug Dosing 86.74 mL/min Estimated GFR (MDRD) > 60 (>60) Glucose 139 H (74-106) mg/dL Calcium 9.5 (8.5-10.1) mg/dL Mehul Results Last 24 Hours: Microbiology 08/11/20 14:12 Aerobic Blood Culture - Preliminary Blood - Arm, Left NO GROWTH AFTER 1 DAY Anaerobic Blood Culture - Preliminary NO GROWTH AFTER 1 DAY 08/11/20 13:41 Aerobic Blood Culture - Preliminary Blood - Venous NO GROWTH AFTER 1 DAY Anaerobic Blood Culture - Preliminary NO GROWTH AFTER 1 DAY Med Orders - Current: Current Medications Acetaminophen (Acetaminophen 325 Mg Tab) 650 mg PO Q4H PRN PRN Reason: Pain (Mild 1-3)/fever Last Admin: 08/11/20 14:51 Dose: 650 mg Documented by: Albuterol (Albuterol 8 Gm Inhaler) 0 gm INH Q4H PRN PRN Reason: Wheezing Arformoterol Tartrate (Arformoterol 15 Mcg/2 Ml Neb Soln) 15 mcg INH BIDRT [facility] Last Admin: 08/13/20 06:58 Dose: 15 mcg Documented by: Benzonatate (Benzonatate 100 Mg Cap) 100 mg PO TID PRN PRN Reason: Cough Dexamethasone (Dexamethasone 2 Mg Tab) 2 mg PO BID [facility] Last Admin: 08/13/20 08:20 Dose: 2 mg Documented by: Fentanyl (Fentanyl 12 Mcg/Hr Transdermal Patch) 12 mcg TRDERM Q72H [facility] Last Admin: 08/11/20 09:36 Dose: 12 mcg Documented by: Hydrochlorothiazide (Hydrochlorothiazide 25 Mg Tab) 25 mg PO DAILY [facility] Last Admin: 08/13/20 08:20 Dose: 25 mg Documented by: Hydromorphone HCl (Hydromorphone 0.5 Mg/0.5 Ml Syringe) 0.5 mg IVPUSH Q2H PRN PRN Reason: Pain Last Admin: 08/13/20 10:34 Dose: 0.5 mg Documented by: Ceftriaxone Sodium 1 gm/ (Sodium Chloride) 50 mls @ 100 mls/hr IV Q24H [facility] Last Admin: 08/12/20 15:39 Dose: 100 mls/hr Documented by: Doxycycline Hyclate 100 mg/ (Sodium Chloride) 100 mls @ 100 mls/hr IV Q12H [facility] Last Admin: 08/13/20 01:51 Dose: 100 mls/hr Documented by: Urea 40% Cream (Ptom) 0 applic TOP BID PRN PRN Reason: Muscle soreness Ondansetron HCl (Ondansetron 4 Mg/2 Ml Sdv) 4 mg IV Q4H PRN PRN Reason: Nausea/Vomiting Oxycodone HCl (Oxycodone 5 Mg Tab) 10 mg PO Q4H PRN PRN Reason: Pain Last Admin: 08/13/20 10:36 Dose: 10 mg Documented by: Pantoprazole Sodium (Pantoprazole 40 Mg Tab.Cr) 40 mg PO ACBREAKFAST [facility] Last Admin: 08/13/20 08:14 Dose: 40 mg Documented by: Polyethylene Glycol (Polyethylene Glycol 3350 Powder 17 Gm Packet) 17 gm PO DAILY PRN PRN Reason: Constipation Rivaroxaban (Rivaroxaban 10 Mg Tab) 20 mg PO DAILY [facility] Last Admin: 08/13/20 08:20 Dose: 20 mg Documented by: Senna/Docusate Sodium (Docusate Sodium/Sennosides 50-8.6 Mg Tab) 1 tab PO BID PRN PRN Reason: Constipation Sodium Chloride (Sodium Chloride 0.9% 10 Ml Syringe) 10 ml FLUSH ASDIRECTED PRN PRN Reason: Keep Vein Open Tamsulosin HCl (Tamsulosin 0.4 Mg Cap.Er) 0.4 mg PO BEDTIME [facility] Last Admin: 08/12/20 21:14 Dose: 0.4 mg Documented by: Discontinued Medications Potassium Chloride/Sodium Chloride (Normal Saline With 20 Meq Kcl) 1,000 mls @ 1,000 mls/hr IV ASDIRECTED [facility] Last Admin: 08/11/20 11:04 Dose: 1,000 mls/hr Documented by: Ceftriaxone Sodium 1 gm/ (Sodium Chloride) 50 mls @ 100 mls/hr IV Q24H [facility] Stop: 08/11/20 18:00 Last Admin: 08/11/20 14:30 Dose: 100 mls/hr Documented by: Doxycycline Hyclate 100 mg/ (Sodium Chloride) 100 mls @ 100 mls/hr IV Q12H [facility] Stop: 08/11/20 18:00 Last Admin: 08/11/20 14:55 Dose: 100 mls/hr Documented by: Sodium Chloride (Normal Saline) 1,000 mls @ 75 mls/hr IV ASDIRECTED [facility] Last Admin: 08/12/20 07:45 Dose: 75 mls/hr Documented by: Oxycodone HCl (Oxycodone 5 Mg Tab) 5 mg PO ONETIME ONE Stop: 08/11/20 09:18 Last Admin: 08/11/20 09:36 Dose: 5 mg Documented by: Rivaroxaban (Rivaroxaban 10 Mg Tab) 20 mg PO ONETIME ONE Stop: 08/11/20 10:01 Last Admin: 08/11/20 09:40 Dose: 20 mg Documented by: Simethicone (Simethicone 80 Mg Tab.Chew) 160 mg PO ONETIME ONE Stop: 08/11/20 10:41 Last Admin: 08/11/20 11:07 Dose: 160 mg Documented by: Sodium Chloride (Sodium Chloride 0.9% 10 Ml Syringe) 10 ml FLUSH ASDIRECTED PRN PRN Reason: Keep Vein Open Last Admin: 08/11/20 09:39 Dose: 10 ml Documented by: - Exam Quality Assessment: Supplemental Oxygen, DVT Prophylaxis General: Alert, Oriented, Cooperative, Moderate Distress Lungs: Clear to Auscultation, Normal Respiratory Effort Cardiovascular: Regular Rate, Regular Rhythm, No Murmurs GI/Abdominal Exam: Soft, Non-Tender, No Organomegaly, No Distention Extremities: Non-Tender, No Pedal Edema - Patient Data Lab Results Last 24 hrs: Laboratory Results - last 24 hr 08/13/20 08/13/20 Range/Units 05:30 05:30 WBC 6.6 (4.5-11.0) K/uL RBC 3.61 L (4.30-5.90) M/uL Hgb 11.9 L (12.0-15.0) g/dL Hct 37.5 L (40.0-54.0) % MCV 104 H (80-98) fL MCH 33 H (27-31) pg MCHC 32 (32-36) % Plt Count 243 (150-400) K/uL Neut % (Auto) 91.2 H (36-66) % Lymph % (Auto) 4.1 L (24-44) % [place] % (Auto) 4.3 (2-6) % Eos % (Auto) 0.2 L (2-4) % Baso % (Auto) 0.2 (0-1) % Sodium 142 (140-148) mmol/L Potassium 4.2 (3.6-5.2) mmol/L Chloride 102 (100-108) mmol/L Carbon Dioxide 32 (21-32) mmol/L Anion Gap 8.4 (5.0-14.0) mmol/L BUN 22 H (7-18) mg/dL Creatinine 0.9 (0.8-1.3) mg/dL Est Cr Clr Drug Dosing 86.74 mL/min Estimated GFR (MDRD) > 60 (>60) Glucose 139 H (74-106) mg/dL Calcium 9.5 (8.5-10.1) mg/dL Result Diagrams: 08/13/20 05:30 08/13/20 05:30 Mehul Results Last 24 hrs: Microbiology 08/11/20 14:12 Aerobic Blood Culture - Preliminary Blood - Arm, Left NO GROWTH AFTER 1 DAY Anaerobic Blood Culture - Preliminary NO GROWTH AFTER 1 DAY 08/11/20 13:41 Aerobic Blood Culture - Preliminary Blood - Venous NO GROWTH AFTER 1 DAY Anaerobic Blood Culture - Preliminary NO GROWTH AFTER 1 DAY Sepsis Event Note - Evaluation Sepsis Screening Result: No Definite Risk - Focused Exam Vital Signs: Vital Signs Temp Pulse Resp BP Pulse Ox 08/13/20 06:58 94 08/13/20 04:00 98.2 F 20 136/81 95 08/13/20 00:00 98.2 F 16 132/79 97 - Problem List Review Problem List Initiated/Reviewed/Updated: Yes - My Orders Last 24 Hours: My Active Orders 08/12/20 10:27 Tamsulosin [Flomax] 0.4 mg PO BEDTIME Convert IV to Saline Lock [OM.PC] Routine 08/12/20 15:00 cefTRIAXone [Rocephin] 1 gm Sodium Chloride 0.9% [Normal Saline] 50 ml IV Q24H - Plan Plan:: ASSESSMENT AND PLAN HYPOXIC RESPIRATORY FAILURE-he has a known history of left lung cancer status post previous partial left lung resection. Complicated by recent pulmonary embolism in the left lung. Slowly improving since admission, still requires s ome supplemental oxygen -Echocardiogram when available -Supplemental oxygen as needed PNEUMONIA-evidence of infiltrate noted on chest x-ray -Blood cultures pending -IV doxycycline and ceftriaxone pending culture results GENERALIZED WEAKNESS-likely secondary to current infection and shortness of br eath as well as underlying lung cancer. Slow improvement in overall strength, activity improved with increased pain control -Physical therapy consult NON-SMALL CELL CANCER OF THE LUNG STAGE IV-ongoing difficulty with pain, improved from admission -Fentanyl patch 12 mcg every 72 hours -Oxycodone 10 mg every 4 hours as needed -Outpatient follow-up with oncology RECENT PULMONARY EMBOLISM -Continue current oral anticoagulation MAINTENANCE ISSUES -DVT prophylaxis; current therapy with Xarelto should provide adequate DVT prophylaxis -GI prophylaxis; continue outpatient PPI therapy -Velazquez catheter; not indicated -Nutrition; 2 g sodium diet -Nicotine dependence; not required CODE STATUS-DNR/DNI ADMISSION STATUS-patient will be admitted to inpatient status, expect at least a 2 night hospital stay for evaluation and management of problems as outlined above. At the time of this admission I do not reasonably expected evaluation and management of this problem will require more than a 96 hour hospital stay. DISPOSITION-anticipate discharge to home after the hospital stay.
[2020-08-13] MEDS: cefTRIAXone 1 GM in Sodium Chloride 0.9% 50 ML IV SCH (15:37)
[2020-08-13] MEDS: Tamsulosin 0.4 MG Cap.ER PO SCH (21:16)
[2020-08-14] MEDS: HYDROmorphone 0.5 MG/0.5 ML Syringe IVPUSH PRN ×6 (01:12→23:11)
[2020-08-14] MEDS: oxyCODONE 5 MG Tab PO PRN ×3 (01:12→09:26)
[2020-08-14] MEDS: Doxycycline 100 MG in Sodium Chloride 0.9% 100 ML IV SCH (01:15)
[2020-08-14] MEDS: Arformoterol 15 MCG/2 ML Neb Soln INH SCH ×2 (07:14→20:17)
[2020-08-14] MEDS: Pantoprazole 40 MG Tab.CR PO SCH (08:17)
[2020-08-14] MEDS: Dexamethasone 2 MG Tab PO SCH ×2 (08:17→20:17)
[2020-08-14] MEDS: Hydrochlorothiazide 25 MG Tab PO SCH (08:17)
[2020-08-14] MEDS: Rivaroxaban 10 MG Tab PO SCH (08:17)
[2020-08-14] MEDS: fentaNYL 12 MCG/HR Transdermal Patch TRDERM SCH (08:30)
--- NOTE | 2020-08-14 10:51 | PCM.PN ---
- General Info Date of Service: 08/14/20 Subjective Update: No acute events overnight. Oxygenation has been stable. Still has a little bit of a loose cough. Continues to report severe pain with pain located in the righ t lower chest and left chest as well as left shoulder. Pain is better than at admit but still suboptimally controlled. No significant nausea. Still weak and not ambulating well. Functional Status: Reports: Tolerating Diet. Denies: Pain Controlled - Review of Systems General: Reports: Weakness - Patient Data Vitals - Most Recent: Last Vital Signs Temp 35.7 C L 08/14/20 07:30 Pulse 95 08/14/20 07:30 Resp 16 08/14/20 07:30 BP 130/83 08/14/20 07:30 Pulse Ox 99 08/14/20 07:30 Weight - Most Recent: 86.273 kg I&O - Last 24 Hours: Intake & Output 08/13/20 08/14/20 08/14/20 22:59 06:59 14:59 Intake Total 100 Output Total 150 Balance -150 100 Mehul Results Last 24 Hours: Microbiology 08/11/20 14:12 Aerobic Blood Culture - Preliminary Blood - Arm, Left NO GROWTH AFTER 2 DAYS Anaerobic Blood Culture - Preliminary NO GROWTH AFTER 2 DAYS 08/11/20 13:41 Aerobic Blood Culture - Preliminary Blood - Venous NO GROWTH AFTER 2 DAYS Anaerobic Blood Culture - Preliminary NO GROWTH AFTER 2 DAYS Med Orders - Current: Current Medications Acetaminophen (Acetaminophen 325 Mg Tab) 650 mg PO Q4H PRN PRN Reason: Pain (Mild 1-3)/fever Last Admin: 08/11/20 14:51 Dose: 650 mg Documented by: Hydrocodone Bitart/Acetaminophen (Acetaminophen/Hydrocodone 325-10 Mg Tab) 1 tab PO Q4H PRN PRN Reason: Pain Albuterol (Albuterol 8 Gm Inhaler) 0 gm INH Q4H PRN PRN Reason: Wheezing Arformoterol Tartrate (Arformoterol 15 Mcg/2 Ml Neb Soln) 15 mcg INH BIDRT [facility] Last Admin: 08/14/20 07:14 Dose: 15 mcg Documented by: Benzonatate (Benzonatate 100 Mg Cap) 100 mg PO TID PRN PRN Reason: Cough Dexamethasone (Dexamethasone 2 Mg Tab) 2 mg PO BID [facility] Last Admin: 08/14/20 08:17 Dose: 2 mg Documented by: Doxycycline Hyclate (Doxycycline 100 Mg Cap) 100 mg PO Q12H [facility] Fentanyl (Fentanyl 25 Mcg/Hr Transdermal Patch) 25 mcg TRDERM Q72H [facility] Hydrochlorothiazide (Hydrochlorothiazide 25 Mg Tab) 25 mg PO DAILY [facility] Last Admin: 08/14/20 08:17 Dose: 25 mg Documented by: Hydromorphone HCl (Hydromorphone 0.5 Mg/0.5 Ml Syringe) 0.5 mg IVPUSH Q4H PRN PRN Reason: Pain Last Admin: 08/14/20 09:27 Dose: 0.5 mg Documented by: Urea 40% Cream (Ptom) 0 applic TOP BID PRN PRN Reason: Muscle soreness Ondansetron HCl (Ondansetron 4 Mg/2 Ml Sdv) 4 mg IV Q4H PRN PRN Reason: Nausea/Vomiting Oxycodone HCl (Oxycodone 5 Mg Tab) 10 mg PO Q4H PRN PRN Reason: Pain Last Admin: 08/14/20 09:26 Dose: 10 mg Documented by: Pantoprazole Sodium (Pantoprazole 40 Mg Tab.Cr) 40 mg PO ACBREAKFAST [facility] Last Admin: 08/14/20 08:17 Dose: 40 mg Documented by: Polyethylene Glycol (Polyethylene Glycol 3350 Powder 17 Gm Packet) 17 gm PO DAILY PRN PRN Reason: Constipation Rivaroxaban (Rivaroxaban 10 Mg Tab) 20 mg PO DAILY [facility] Last Admin: 08/14/20 08:17 Dose: 20 mg Documented by: Senna/Docusate Sodium (Docusate Sodium/Sennosides 50-8.6 Mg Tab) 1 tab PO BID PRN PRN Reason: Constipation Last Admin: 08/13/20 19:23 Dose: 1 tab Documented by: Sodium Chloride (Sodium Chloride 0.9% 10 Ml Syringe) 10 ml FLUSH ASDIRECTED PRN PRN Reason: Keep Vein Open Tamsulosin HCl (Tamsulosin 0.4 Mg Cap.Er) 0.4 mg PO BEDTIME [facility] Last Admin: 08/13/20 21:16 Dose: 0.4 mg Documented by: Discontinued Medications Fentanyl (Fentanyl 12 Mcg/Hr Transdermal Patch) 12 mcg TRDERM Q72H [facility] Last Admin: 08/14/20 08:30 Dose: 12 mcg Documented by: Hydromorphone HCl (Hydromorphone 0.5 Mg/0.5 Ml Syringe) 0.5 mg IVPUSH Q2H PRN PRN Reason: Pain Last Admin: 08/13/20 10:34 Dose: 0.5 mg Documented by: Potassium Chloride/Sodium Chloride (Normal Saline With 20 Meq Kcl) 1,000 mls @ 1,000 mls/hr [facility] Last Admin: 08/11/20 11:04 Dose: 1,000 mls/hr Documented by: Ceftriaxone Sodium 1 gm/ (Sodium Chloride) 50 mls @ 100 mls/hr IV Q24H [facility] Stop: 08/11/20 18:00 Last Admin: 08/11/20 14:30 Dose: 100 mls/hr Documented by: Doxycycline Hyclate 100 mg/ (Sodium Chloride) 100 mls @ 100 mls/hr IV Q12H [facility] Stop: 08/11/20 18:00 Last Admin: 08/11/20 14:55 Dose: 100 mls/hr Documented by: Sodium Chloride (Normal Saline) 1,000 mls @ 75 mls[facility] Last Admin: 08/12/20 07:45 Dose: 75 mls/hr Documented by: Ceftriaxone Sodium 1 gm/ (Sodium Chloride) 50 mls @ 100 mls/hr IV Q24H [facility] Last Admin: 08/13/20 15:37 Dose: 100 mls/hr Documented by: Doxycycline Hyclate 100 mg/ (Sodium Chloride) 100 mls @ 100 mls/hr IV Q12H [facility] Last Admin: 08/14/20 01:15 Dose: 100 mls/hr Documented by: Oxycodone HCl (Oxycodone 5 Mg Tab) 5 mg PO ONETIME ONE Stop: 08/11/20 09:18 Last Admin: 08/11/20 09:36 Dose: 5 mg Documented by: Rivaroxaban (Rivaroxaban 10 Mg Tab) 20 mg PO ONETIME ONE Stop: 08/11/20 10:01 Last Admin: 08/11/20 09:40 Dose: 20 mg Documented by: Simethicone (Simethicone 80 Mg Tab.Chew) 160 mg PO ONETIME ONE Stop: 08/11/20 10:41 Last Admin: 08/11/20 11:07 Dose: 160 mg Documented by: Sodium Chloride (Sodium Chloride 0.9% 10 Ml Syringe) 10 ml FLUSH ASDIRECTED PRN PRN Reason: Keep Vein Open Last Admin: 08/11/20 09:39 Dose: 10 ml Documented by: - Exam Quality Assessment: Supplemental Oxygen General: Alert, Oriented, Cooperative, No Acute Distress Lungs: Clear to Auscultation, Normal Respiratory Effort Cardiovascular: Regular Rate, Regular Rhythm GI/Abdominal Exam: Soft, Non-Tender, No Distention Extremities: Pedal Edema (mild both ankles ). No: Increased Warmth Skin: Warm, Dry Psy/Mental Status: Alert, Normal Affect - Patient Data Result Diagrams: 08/13/20 05:30 08/13/20 05:30 Mehul Results Last 24 hrs: Microbiology 08/11/20 14:12 Aerobic Blood Culture - Preliminary Blood - Arm, Left NO GROWTH AFTER 2 DAYS Anaerobic Blood Culture - Preliminary NO GROWTH AFTER 2 DAYS 08/11/20 13:41 Aerobic Blood Culture - Preliminary Blood - Venous NO GROWTH AFTER 2 DAYS Anaerobic Blood Culture - Preliminary NO GROWTH AFTER 2 DAYS Sepsis Event Note - Evaluation Sepsis Screening Result: No Definite Risk - Focused Exam Vital Signs: Vital Signs Temp Pulse Resp BP Pulse Ox 08/14/20 07:30 35.7 C L 95 16 130/83 99 08/14/20 07:14 101 H 08/14/20 02:41 35.5 C L 98 18 148/82 H 99 - Problem List Review Problem List Initiated/Reviewed/Updated: Yes - My Orders Last 24 Hours: My Active Orders 08/14/20 10:47 Acetaminophen/HYDROcodone [[place] 325-10 MG] 1 tab PO Q4H PRN 08/14/20 11:00 Doxycycline [Vibramycin] 100 mg PO Q12H fentaNYL [Duragesic] 25 mcg TRDERM Q72H - Plan Plan:: ASSESSMENT AND PLAN HYPOXIC RESPIRATORY FAILURE-he has a known history of left lung cancer status post previous partial left lung resection. Complicated by recent pulmonary embolism in the left lung. Slowly improving since admission, but still requires some supplemental oxygen -Supplemental oxygen as needed -Likely will need home oxygen POSSIBLE PNEUMONIA-patchy lower lung infiltrate, atelectasis versus early infiltrate. Cultures negative so far. No fevers. -Blood cultures pending -Continue doxycycline GENERALIZED WEAKNESS-likely secondary to current infection and shortness of breath as well as underlying lung cancer. Slow improvement in overall strength, activity improved with increased pain control -Physical therapy consult NON-SMALL CELL CANCER OF THE LUNG STAGE IV-ongoing difficulty with pain, improved from admission but still suboptimally controlled. -Increase fentanyl patch to 25 mcg -Hydrocodone 10 mg every 4 hours as needed -Outpatient follow-up with oncology RECENT PULMONARY EMBOLISM-requiring supplemental oxygen as above. -Continue current oral anticoagulation MAINTENANCE ISSUES -DVT prophylaxis; rivaroxaban -GI prophylaxis; continue outpatient PPI therapy -Velazquez catheter; not indicated -Nutrition; 2 g sodium diet DISPOSITION-anticipate discharge to home probably with home care after the hospital stay. Ayad Villarreal MD
[2020-08-14] MEDS ORDERED: fentaNYL 25 MCG/HR Transdermal Patch TRDERM SCH (11:00)
[2020-08-14] MEDS ORDERED: fentaNYL 12 MCG/HR Transdermal Patch TRDERM ONE (11:00)
[2020-08-14] MEDS: Doxycycline 100 MG Cap PO SCH ×2 (11:50→22:18)
[2020-08-14] MEDS: Polyethylene Glycol 3350 Powder 17 GM Packet PO PRN (14:51)
[2020-08-14] MEDS: Acetaminophen/HYDROcodone 325-10 MG Tab PO PRN ×2 (17:29→23:10)
[2020-08-14] MEDS: Tamsulosin 0.4 MG Cap.ER PO SCH (20:18)
[2020-08-14] MEDS: VERIFY FENTANYL PATCH TOP SCH (20:18)
[2020-08-15] MEDS: Acetaminophen/HYDROcodone 325-10 MG Tab PO PRN ×4 (04:21→22:06)
[2020-08-15] MEDS: HYDROmorphone 0.5 MG/0.5 ML Syringe IVPUSH PRN ×4 (04:27→22:12)
[2020-08-15] MEDS: Arformoterol 15 MCG/2 ML Neb Soln INH SCH ×2 (07:21→20:37)
[2020-08-15] MEDS: Pantoprazole 40 MG Tab.CR PO SCH (07:35)
[2020-08-15] MEDS: VERIFY FENTANYL PATCH TOP SCH ×2 (08:55→20:37)
[2020-08-15] MEDS: Rivaroxaban 10 MG Tab PO SCH (08:55)
[2020-08-15] MEDS: Hydrochlorothiazide 25 MG Tab PO SCH (08:55)
[2020-08-15] MEDS: Dexamethasone 2 MG Tab PO SCH ×2 (08:55→20:37)
[2020-08-15] MEDS: Polyethylene Glycol 3350 Powder 17 GM Packet PO PRN (10:49)
[2020-08-15] MEDS: Doxycycline 100 MG Cap PO SCH ×2 (10:49→22:06)
--- NOTE | 2020-08-15 12:36 | PCM.PN ---
- General Info Date of Service: 08/15/20 Subjective Update: There were no acute events overnight. Patient reports that his pain is under better control at this time. He continues to experience right and left-sided chest pain as well as left shoulder pain. Pain is very tolerable at this time. Still no bowel movement but he feels like he is getting close. Shortness of breath is stable to slightly improved. Still requiring a small amount of supplemental oxygen. Functional Status: Reports: Pain Controlled, Tolerating Diet - Review of Systems General: Denies: Fever - Patient Data Vitals - Most Recent: Last Vital Signs Temp 36.5 C 08/15/20 11:33 Pulse 101 H 08/15/20 11:33 Resp 18 08/15/20 11:33 BP 144/89 H 08/15/20 11:33 Pulse Ox 98 08/15/20 11:33 Weight - Most Recent: 86.273 kg I&O - Last 24 Hours: Intake & Output 08/14/20 08/15/20 08/15/20 22:59 06:59 14:59 Intake Total 700 120 Balance 700 120 Mehul Results Last 24 Hours: Microbiology 08/11/20 14:12 Aerobic Blood Culture - Preliminary Blood - Arm, Left NO GROWTH AFTER 3 DAYS Anaerobic Blood Culture - Preliminary NO GROWTH AFTER 3 DAYS 08/11/20 13:41 Aerobic Blood Culture - Preliminary Blood - Venous NO GROWTH AFTER 3 DAYS Anaerobic Blood Culture - Preliminary NO GROWTH AFTER 3 DAYS Med Orders - Current: Current Medications Acetaminophen (Acetaminophen 325 Mg Tab) 650 mg PO Q4H PRN PRN Reason: Pain (Mild 1-3)/fever Last Admin: 08/11/20 14:51 Dose: 650 mg Documented by: Hydrocodone Bitart/Acetaminophen (Acetaminophen/Hydrocodone 325-10 Mg Tab) 1 tab PO Q4H PRN PRN Reason: Pain Last Admin: 08/15/20 09:03 Dose: 1 tab Documented by: Albuterol (Albuterol 8 Gm Inhaler) 0 gm INH Q4H PRN PRN Reason: Wheezing Arformoterol Tartrate (Arformoterol 15 Mcg/2 Ml Neb Soln) 15 mcg INH BIDRT [facility] Last Admin: 08/15/20 07:21 Dose: 15 mcg Documented by: Benzonatate (Benzonatate 100 Mg Cap) 100 mg PO TID PRN PRN Reason: Cough Dexamethasone (Dexamethasone 2 Mg Tab) 2 mg PO BID [facility] Last Admin: 08/15/20 08:55 Dose: 2 mg Documented by: Doxycycline Hyclate (Doxycycline 100 Mg Cap) 100 mg PO Q12H [facility] Last Admin: 08/15/20 10:49 Dose: 100 mg Documented by: Fentanyl (Fentanyl 25 Mcg/Hr Transdermal Patch) 25 mcg TRDERM Q72H [facility] Hydrochlorothiazide (Hydrochlorothiazide 25 Mg Tab) 25 mg PO DAILY [facility] Last Admin: 08/15/20 08:55 Dose: 25 mg Documented by: Hydromorphone HCl (Hydromorphone 0.5 Mg/0.5 Ml Syringe) 0.5 mg IVPUSH Q4H PRN PRN Reason: Pain Last Admin: 08/15/20 09:04 Dose: 0.5 mg Documented by: Urea 40% Cream (Ptom) 0 applic TOP BID PRN PRN Reason: Muscle soreness Verify Fentanyl (Patch) 0 each TOP BID [facility] Last Admin: 08/15/20 08:55 Dose: Not Given Documented by: Ondansetron HCl (Ondansetron 4 Mg/2 Ml Sdv) 4 mg IV Q4H PRN PRN Reason: Nausea/Vomiting Pantoprazole Sodium (Pantoprazole 40 Mg Tab.Cr) 40 mg PO ACBREAKFAST [facility] Last Admin: 08/15/20 07:35 Dose: 40 mg Documented by: Polyethylene Glycol (Polyethylene Glycol 3350 Powder 17 Gm Packet) 17 gm PO DAILY PRN PRN Reason: Constipation Last Admin: 08/15/20 10:49 Dose: 17 gm Documented by: Rivaroxaban (Rivaroxaban 10 Mg Tab) 20 mg PO DAILY [facility] Last Admin: 08/15/20 08:55 Dose: 20 mg Documented by: Senna/Docusate Sodium (Docusate Sodium/Sennosides 50-8.6 Mg Tab) 1 tab PO BID PRN PRN Reason: Constipation Last Admin: 08/15/20 10:49 Dose: 1 tab Documented by: Sodium Chloride (Sodium Chloride 0.9% 10 Ml Syringe) 10 ml FLUSH ASDIRECTED PRN PRN Reason: Keep Vein Open Tamsulosin HCl (Tamsulosin 0.4 Mg Cap.Er) 0.4 mg PO BEDTIME [facility] Last Admin: 08/14/20 20:18 Dose: 0.4 mg Documented by: Discontinued Medications Fentanyl (Fentanyl 12 Mcg/Hr Transdermal Patch) 12 mcg TRDERM Q72H [facility] Last Admin: 08/14/20 08:30 Dose: 12 mcg Documented by: Fentanyl (Fentanyl 12 Mcg/Hr Transdermal Patch) 12 mcg TRDERM ONETIME ONE Stop: 08/14/20 11:01 Last Admin: 08/14/20 11:49 Dose: 12 mcg Documented by: Hydromorphone HCl (Hydromorphone 0.5 Mg/0.5 Ml Syringe) 0.5 mg IVPUSH Q2H PRN PRN Reason: Pain Last Admin: 08/13/20 10:34 Dose: 0.5 mg Documented by: Potassium Chloride/Sodium Chloride (Normal Saline With 20 Meq Kcl) 1,000 mls [facility] Last Admin: 08/11/20 11:04 Dose: 1,000 mls/hr Documented by: Ceftriaxone Sodium 1 gm/ (Sodium Chloride) 50 mls @ 100 mls/hr IV Q24H [facility] Stop: 08/11/20 18:00 Last Admin: 08/11/20 14:30 Dose: 100 mls/hr Documented by: Doxycycline Hyclate 100 mg/ (Sodium Chloride) 100 mls @ 100 mls/hr IV Q12H [facility] Stop: 08/11/20 18:00 Last Admin: 08/11/20 14:55 Dose: 100 mls/hr Documented by: Sodium Chloride (Normal Saline) 1,000 mls @ 75 mls/hr IV ASDIRECTED [facility] Last Admin: 08/12/20 07:45 Dose: 75 mls/hr Documented by: Ceftriaxone Sodium 1 gm/ (Sodium Chloride) 50 mls @ 100 mls/hr IV Q24H [facility] Last Admin: 08/13/20 15:37 Dose: 100 mls/hr Documented by: Doxycycline Hyclate 100 mg/ (Sodium Chloride) 100 mls @ 100 mls/hr IV Q12H [facility] Last Admin: 08/14/20 01:15 Dose: 100 mls/hr Documented by: Oxycodone HCl (Oxycodone 5 Mg Tab) 5 mg PO ONETIME ONE Stop: 08/11/20 09:18 Last Admin: 08/11/20 09:36 Dose: 5 mg Documented by: Oxycodone HCl (Oxycodone 5 Mg Tab) 10 mg PO Q4H PRN PRN Reason: Pain Last Admin: 08/14/20 09:26 Dose: 10 mg Documented by: Rivaroxaban (Rivaroxaban 10 Mg Tab) 20 mg PO ONETIME ONE Stop: 08/11/20 10:01 Last Admin: 08/11/20 09:40 Dose: 20 mg Documented by: Simethicone (Simethicone 80 Mg Tab.Chew) 160 mg PO ONETIME ONE Stop: 08/11/20 10:41 Last Admin: 08/11/20 11:07 Dose: 160 mg Documented by: Sodium Chloride (Sodium Chloride 0.9% 10 Ml Syringe) 10 ml FLUSH ASDIRECTED PRN PRN Reason: Keep Vein Open Last Admin: 08/11/20 09:39 Dose: 10 ml Documented by: - Exam Quality Assessment: Supplemental Oxygen General: Alert, Oriented, Cooperative, No Acute Distress Lungs: Normal Respiratory Effort Cardiovascular: Regular Rate, Regular Rhythm GI/Abdominal Exam: Soft, Distended (mild) Extremities: No Pedal Edema. No: Increased Warmth Skin: Warm, Dry Psy/Mental Status: Alert, Normal Affect - Patient Data Result Diagrams: 08/13/20 05:30 08/13/20 05:30 Mehul Results Last 24 hrs: Microbiology 08/11/20 14:12 Aerobic Blood Culture - Preliminary Blood - Arm, Left NO GROWTH AFTER 3 DAYS Anaerobic Blood Culture - Preliminary NO GROWTH AFTER 3 DAYS 08/11/20 13:41 Aerobic Blood Culture - Preliminary Blood - Venous NO GROWTH AFTER 3 DAYS Anaerobic Blood Culture - Preliminary NO GROWTH AFTER 3 DAYS Sepsis Event Note - Evaluation Sepsis Screening Result: No Definite Risk - Focused Exam Vital Signs: Vital Signs Temp Pulse Resp BP Pulse Ox 08/15/20 11:33 36.5 C 101 H 18 144/89 H 98 08/15/20 07:00 107 H 18 141/80 H 100 08/15/20 02:20 35.1 C L 114 H 18 143/99 H 96 - Problem List Review Problem List Initiated/Reviewed/Updated: Yes - My Orders Last 24 Hours: My Active Orders 08/14/20 21:00 Non-Formulary Medication [NF Drug] 0 each TOP BID 08/16/20 07:00 Brain w wo Cont [MR] Routine 08/17/20 09:00 fentaNYL [Duragesic] 25 mcg TRDERM Q72H - Plan Plan:: ASSESSMENT AND PLAN HYPOXIC RESPIRATORY FAILURE-he has a known history of left lung cancer status post previous partial left lung resection. Complicated by recent pulmonary embolism in the left lung. Slowly improving but still requires some supplemental oxygen. -Supplemental oxygen as needed -Likely will need home oxygen Probable bronchitis-chest x-ray initially raised concern for pneumonia but not seen on CT scan. Suspect bronchitis with increased cough, dyspnea and hypoxia. Cultures negative so far. -Continue doxycycline GENERALIZED WEAKNESS-likely secondary to current infection and shortness of breath as well as underlying lung cancer. Slow improvement in overall strength, activity improved with increased pain control. -Physical therapy consult NON-SMALL CELL CANCER OF THE LUNG STAGE IV-ongoing difficulty with pain, improved from admission and now under better control -Increase fentanyl patch to 25 mcg -Hydrocodone 10 mg every 4 hours as needed -Outpatient follow-up with oncology -MRI of the brain in the morning to evaluate metastatic disease RECENT PULMONARY EMBOLISM-requiring supplemental oxygen as above. -Continue current oral anticoagulation MAINTENANCE ISSUES -DVT prophylaxis; rivaroxaban -GI prophylaxis; continue outpatient PPI therapy -Velazquez catheter; not indicated -Nutrition; 2 g sodium diet DISPOSITION-anticipate discharge to home probably with home care after the hospital stay. Ayad Villarreal MD
[2020-08-15] MEDS: Tamsulosin 0.4 MG Cap.ER PO SCH (20:37)
[2020-08-16] MEDS: Acetaminophen/HYDROcodone 325-10 MG Tab PO PRN ×4 (02:50→23:11)
[2020-08-16] MEDS: HYDROmorphone 0.5 MG/0.5 ML Syringe IVPUSH PRN ×3 (06:02→22:18)
[2020-08-16] MEDS: Arformoterol 15 MCG/2 ML Neb Soln INH SCH ×2 (07:16→20:42)
[2020-08-16] MEDS: Pantoprazole 40 MG Tab.CR PO SCH (07:38)
[2020-08-16] MEDS: Hydrochlorothiazide 25 MG Tab PO SCH (09:30)
[2020-08-16] MEDS: Rivaroxaban 10 MG Tab PO SCH (09:30)
[2020-08-16] MEDS: Dexamethasone 2 MG Tab PO SCH ×2 (09:31→20:42)
[2020-08-16] MEDS: VERIFY FENTANYL PATCH TOP SCH ×2 (09:31→21:08)
[2020-08-16] MEDS ORDERED: LORazepam 1 MG Tab PO ONE (09:40)
[2020-08-16] MEDS: Doxycycline 100 MG Cap PO SCH ×2 (10:53→23:11)
[2020-08-16] MEDS ORDERED: Gadoteridol 279.3 MG/ML 20 ML SDV IV SCH (11:30)
--- NOTE | 2020-08-16 12:05 | PCM.PN ---
- General Info Date of Service: 08/16/20 Subjective Update: No acute events overnight. Patient continues to have difficulty with pain control and has been rating his pain at 9-10 out of 10 fairly frequently. He does get relief from the combination of IV and oral pain medications. He did have an MRI to follow-up his brain lesions today and these are stable. We did try a dose of gabapentin this afternoon and it seems to have provided significant relief so far. Functional Status: Reports: Tolerating Diet. Denies: Pain Controlled - Review of Systems General: Denies: Fever Cardiovascular: Reports: Chest Pain - Patient Data Vitals - Most Recent: Last Vital Signs Temp 36.3 C 08/16/20 10:46 Pulse 115 H 08/16/20 10:46 Resp 18 08/16/20 10:46 BP 160/83 H 08/16/20 10:46 Pulse Ox 93 L 08/16/20 10:46 Weight - Most Recent: 86.273 kg I&O - Last 24 Hours: Intake & Output 08/15/20 08/16/20 08/16/20 22:59 06:59 14:59 Intake Total 120 Balance 120 Mehul Results Last 24 Hours: Microbiology 08/11/20 14:12 Aerobic Blood Culture - Preliminary Blood - Arm, Left NO GROWTH AFTER 4 DAYS Anaerobic Blood Culture - Preliminary NO GROWTH AFTER 4 DAYS 08/11/20 13:41 Aerobic Blood Culture - Preliminary Blood - Venous NO GROWTH AFTER 4 DAYS Anaerobic Blood Culture - Preliminary NO GROWTH AFTER 4 DAYS Med Orders - Current: Current Medications Acetaminophen (Acetaminophen 325 Mg Tab) 650 mg PO Q4H PRN PRN Reason: Pain (Mild 1-3)/fever Last Admin: 08/11/20 14:51 Dose: 650 mg Documented by: Hydrocodone Bitart/Acetaminophen (Acetaminophen/Hydrocodone 325-10 Mg Tab) 1 tab PO Q4H PRN PRN Reason: Pain Last Admin: 08/16/20 10:41 Dose: 1 tab Documented by: Albuterol (Albuterol 8 Gm Inhaler) 0 gm INH Q4H PRN PRN Reason: Wheezing Arformoterol Tartrate (Arformoterol 15 Mcg/2 Ml Neb Soln) 15 mcg INH BIDRT [facility] Last Admin: 08/16/20 07:16 Dose: 15 mcg Documented by: Benzonatate (Benzonatate 100 Mg Cap) 100 mg PO TID PRN PRN Reason: Cough Dexamethasone (Dexamethasone 2 Mg Tab) 2 mg PO BID [facility] Last Admin: 08/16/20 09:31 Dose: 2 mg Documented by: Doxycycline Hyclate (Doxycycline 100 Mg Cap) 100 mg PO Q12H [facility] Last Admin: 08/16/20 10:53 Dose: 100 mg Documented by: Fentanyl (Fentanyl 25 Mcg/Hr Transdermal Patch) 25 mcg TRDERM Q72H [facility] Hydrochlorothiazide (Hydrochlorothiazide 25 Mg Tab) 25 mg PO DAILY [facility] Last Admin: 08/16/20 09:30 Dose: 25 mg Documented by: Hydromorphone HCl (Hydromorphone 0.5 Mg/0.5 Ml Syringe) 0.5 mg IVPUSH Q4H PRN PRN Reason: Pain Last Admin: 08/16/20 10:41 Dose: 0.5 mg Documented by: Urea 40% Cream (Ptom) 0 applic TOP BID PRN PRN Reason: Muscle soreness Verify Fentanyl (Patch) 0 each TOP BID [facility] Last Admin: 08/16/20 09:31 Dose: Not Given Documented by: Ondansetron HCl (Ondansetron 4 Mg/2 Ml Sdv) 4 mg IV Q4H PRN PRN Reason: Nausea/Vomiting Pantoprazole Sodium (Pantoprazole 40 Mg Tab.Cr) 40 mg PO ACBREAKFAST [facility] Last Admin: 08/16/20 07:38 Dose: 40 mg Documented by: Polyethylene Glycol (Polyethylene Glycol 3350 Powder 17 Gm Packet) 17 gm PO DAILY PRN PRN Reason: Constipation Last Admin: 08/15/20 10:49 Dose: 17 gm Documented by: Rivaroxaban (Rivaroxaban 10 Mg Tab) 20 mg PO DAILY [facility] Last Admin: 08/16/20 09:30 Dose: 20 mg Documented by: Senna/Docusate Sodium (Docusate Sodium/Sennosides 50-8.6 Mg Tab) 1 tab PO BID PRN PRN Reason: Constipation Last Admin: 08/15/20 10:49 Dose: 1 tab Documented by: Sodium Chloride (Sodium Chloride 0.9% 10 Ml Syringe) 10 ml FLUSH ASDIRECTED PRN PRN Reason: Keep Vein Open Tamsulosin HCl (Tamsulosin 0.4 Mg Cap.Er) 0.4 mg PO BEDTIME [facility] Last Admin: 08/15/20 20:37 Dose: 0.4 mg Documented by: Discontinued Medications Fentanyl (Fentanyl 12 Mcg/Hr Transdermal Patch) 12 mcg TRDERM Q72H [facility] Last Admin: 08/14/20 08:30 Dose: 12 mcg Documented by: Fentanyl (Fentanyl 12 Mcg/Hr Transdermal Patch) 12 mcg TRDERM ONETIME ONE Stop: 08/14/20 11:01 Last Admin: 08/14/20 11:49 Dose: 12 mcg Documented by: Gadoteridol (Gadoteridol 279.3 Mg/Ml 20 Ml Sdv) 20 ml IV . DIRECTED [facility] Stop: 08/16/20 11:31 Last Admin: 08/16/20 11:56 Dose: 20 ml Documented by: Hydromorphone HCl (Hydromorphone 0.5 Mg/0.5 Ml Syringe) 0.5 mg IVPUSH Q2H PRN PRN Reason: Pain Last Admin: 08/13/20 10:34 Dose: 0.5 mg Documented by: Potassium Chloride/Sodium Chloride (Normal Saline With 20 Meq Kcl) 1,000 mls @ 1,000 mls/hr IV ASDIRECTED [facility] Last Admin: 08/11/20 11:04 Dose: 1,000 mls/hr Documented by: Ceftriaxone Sodium 1 gm/ (Sodium Chloride) 50 mls @ 100 mls/hr IV Q24H [facility] Stop: 08/11/20 18:00 Last Admin: 08/11/20 14:30 Dose: 100 mls/hr Documented by: Doxycycline Hyclate 100 mg/ (Sodium Chloride) 100 mls @ 100 mls/hr IV Q12H [facility] Stop: 08/11/20 18:00 Last Admin: 08/11/20 14:55 Dose: 100 mls/hr Documented by: Sodium Chloride (Normal Saline) 1,000 mls @ 75 mls/hr IV ASDIRECTED [facility] Last Admin: 08/12/20 07:45 Dose: 75 mls/hr Documented by: Ceftriaxone Sodium 1 gm/ (Sodium Chloride) 50 mls @ 100 mls/hr IV Q24H [facility] Last Admin: 08/13/20 15:37 Dose: 100 mls/hr Documented by: Doxycycline Hyclate 100 mg/ (Sodium Chloride) 100 mls @ 100 mls/hr IV Q12H [facility] Last Admin: 08/14/20 01:15 Dose: 100 mls/hr Documented by: Lorazepam (Lorazepam 1 Mg Tab) 1 mg PO ONETIME ONE Stop: 08/16/20 09:41 Last Admin: 08/16/20 10:42 Dose: 1 mg Documented by: Oxycodone HCl (Oxycodone 5 Mg Tab) 5 mg PO ONETIME ONE Stop: 08/11/20 09:18 Last Admin: 08/11/20 09:36 Dose: 5 mg Documented by: Oxycodone HCl (Oxycodone 5 Mg Tab) 10 mg PO Q4H PRN PRN Reason: Pain Last Admin: 08/14/20 09:26 Dose: 10 mg Documented by: Rivaroxaban (Rivaroxaban 10 Mg Tab) 20 mg PO ONETIME ONE Stop: 08/11/20 10:01 Last Admin: 08/11/20 09:40 Dose: 20 mg Documented by: Simethicone (Simethicone 80 Mg Tab.Chew) 160 mg PO ONETIME ONE Stop: 08/11/20 10:41 Last Admin: 08/11/20 11:07 Dose: 160 mg Documented by: Sodium Chloride (Sodium Chloride 0.9% 10 Ml Syringe) 10 ml FLUSH ASDIRECTED PRN PRN Reason: Keep Vein Open Last Admin: 08/11/20 09:39 Dose: 10 ml Documented by: - Exam Quality Assessment: Supplemental Oxygen General: Alert, Oriented, Cooperative, No Acute Distress Lungs: Normal Respiratory Effort GI/Abdominal Exam: Soft, No Distention Extremities: No Pedal Edema Psy/Mental Status: Alert, Normal Affect - Patient Data Result Diagrams: 08/13/20 05:30 08/13/20 05:30 Mehul Results Last 24 hrs: Microbiology 08/11/20 14:12 Aerobic Blood Culture - Preliminary Blood - Arm, Left NO GROWTH AFTER 4 DAYS Anaerobic Blood Culture - Preliminary NO GROWTH AFTER 4 DAYS 08/11/20 13:41 Aerobic Blood Culture - Preliminary Blood - Venous NO GROWTH AFTER 4 DAYS Anaerobic Blood Culture - Preliminary NO GROWTH AFTER 4 DAYS Sepsis Event Note - Evaluation Sepsis Screening Result: No Definite Risk - Focused Exam Vital Signs: Vital Signs Temp Pulse Resp BP Pulse Ox 08/16/20 10:46 36.3 C 115 H 18 160/83 H 93 L 08/16/20 07:10 36.2 C 100 16 151/92 H 98 06/02/21 02:49 140/99 H 08/16/20 02:44 35.5 C L 111 H 18 97 - Problem List Review Problem List Initiated/Reviewed/Updated: Yes - My Orders Last 24 Hours: My Active Orders 08/16/20 07:00 Brain w wo Cont [MR] Routine 08/16/20 14:00 Gabapentin [Neurontin] 200 mg PO TID 08/17/20 09:00 fentaNYL [Duragesic] 25 mcg TRDERM Q72H - Plan Plan:: ASSESSMENT AND PLAN HYPOXIC RESPIRATORY FAILURE-he has a known history of left lung cancer status post previous partial left lung resection. Complicated by recent pulmonary embolism in the left lung. Slowly improving but still requires some supplemental oxygen. -Supplemental oxygen as needed -Likely will need home oxygen Probable bronchitis-chest x-ray initially raised concern for pneumonia but not seen on CT scan. Suspect bronchitis with increased cough, dyspnea and hypoxia. Cultures negative so far. -Continue doxycycline GENERALIZED WEAKNESS-likely secondary to current infection and shortness of breath as well as underlying lung cancer. Slow improvement in overall strength, activity improved with increased pain control. -Physical therapy and Occupational Therapy consults NON-SMALL CELL CANCER OF THE LUNG STAGE IV-ongoing difficulty with pain, improved from admission and now under better control. MRI of the brain shows 2 stable lesions. -Increase fentanyl patch to 25 mcg -Hydrocodone 10 mg every 4 hours as needed -Trial of gabapentin -Outpatient follow-up with oncology RECENT PULMONARY EMBOLISM-requiring supplemental oxygen as above. -Continue current oral anticoagulation MAINTENANCE ISSUES -DVT prophylaxis; rivaroxaban -GI prophylaxis; continue outpatient PPI therapy -Velazquez catheter; not indicated -Nutrition; 2 g sodium diet DISPOSITION-anticipate discharge to home probably with home care after the hospital stay, hopefully in a day or 2. Ayad Villarreal MD
[2020-08-16] MEDS: Gabapentin 100 MG Cap PO SCH ×2 (13:00→20:42)
--- NOTE | 2020-08-16 14:16 | MR ---
Brain w wo Cont CLINICAL HISTORY: Lung carcinoma with brain metastases COMPARISON: None TECHNIQUE: Multiple pulse sequences were obtained through the brain in the axial, coronal, and sagittal planes both pre-and post IV contrast infusion gadolinium-based contrast. All images were obtained on a 1.5 Bree unit. FINDINGS: Diffusion images show 2 large areas restricted diffusion in the left occipital lobe and right parietal lobe. These show predominantly peripheral enhancement. The left occipital lobe lesion measures 5.0 x 3.2 x 2.7 cm. This is essentially unchanged from prior study. The right parietal lesion measures 2.6 x 3.1 x 1.9 cm. This is similar or just slightly smaller. This difference is likely technical. No new enhancing foci are identified. The basal cisterns and sulci over the convexities are mildly prominent. The ventricles are normal for age. IMPRESSION: Essentially stable right parietal and left occipital enhancing masses. No new lesions seen
[2020-08-16] MEDS: LORazepam 0.5 MG Tab PO PRN (19:53)
[2020-08-16] MEDS: Tamsulosin 0.4 MG Cap.ER PO SCH (20:42)
[2020-08-17] MEDS: Acetaminophen/HYDROcodone 325-10 MG Tab PO PRN ×4 (04:01→16:31)
[2020-08-17] MEDS: Benzonatate 100 MG Cap PO PRN ×2 (04:12→12:14)
[2020-08-17] MEDS: Arformoterol 15 MCG/2 ML Neb Soln INH SCH ×2 (07:09→20:14)
[2020-08-17] MEDS: Pantoprazole 40 MG Tab.CR PO SCH (08:03)
[2020-08-17] MEDS: Hydrochlorothiazide 25 MG Tab PO SCH (10:38)
[2020-08-17] MEDS: Doxycycline 100 MG Cap PO SCH ×2 (10:38→22:21)
[2020-08-17] MEDS: Gabapentin 100 MG Cap PO SCH ×3 (10:38→20:15)
[2020-08-17] MEDS: Dexamethasone 2 MG Tab PO SCH ×2 (10:39→20:14)
[2020-08-17] MEDS: fentaNYL 25 MCG/HR Transdermal Patch TRDERM SCH (10:43)
--- NOTE | 2020-08-17 10:45 | PCM.PN ---
- General Info Date of Service: 08/17/20 Subjective Update: Patient had difficulty with increased pain yesterday evening but then had a good night and reported excellent pain control this morning. Pain in the left chest area increased significantly after x-rays of the left hip/femur were obtained. Shortness of breath slowly improving. No significant cough. Weak and requiring a fair amount of assistance with transfers. No fevers. Functional Status: Reports: Pain Controlled, Tolerating Diet - Review of Systems General: Reports: Weakness. Denies: Fever Cardiovascular: Reports: Chest Pain (mild on right ) - Patient Data Vitals - Most Recent: Last Vital Signs Temp 36.3 C 08/17/20 07:38 Pulse 100 08/17/20 07:38 Resp 18 08/17/20 07:38 BP 136/86 08/17/20 07:38 Pulse Ox 96 08/17/20 07:38 Weight - Most Recent: 86.273 kg Mehul Results Last 24 Hours: Microbiology 08/11/20 14:12 Aerobic Blood Culture - Final Blood - Arm, Left NO GROWTH AFTER 5 DAYS Anaerobic Blood Culture - Final NO GROWTH AFTER 5 DAYS 08/11/20 13:41 Aerobic Blood Culture - Final Blood - Venous NO GROWTH AFTER 5 DAYS Anaerobic Blood Culture - Final NO GROWTH AFTER 5 DAYS Med Orders - Current: Current Medications Acetaminophen (Acetaminophen 325 Mg Tab) 650 mg PO Q4H PRN PRN Reason: Pain (Mild 1-3)/fever Last Admin: 08/11/20 14:51 Dose: 650 mg Documented by: Hydrocodone Bitart/Acetaminophen (Acetaminophen/Hydrocodone 325-10 Mg Tab) 1 tab PO Q4H PRN PRN Reason: Pain Last Admin: 08/17/20 08:03 Dose: 1 tab Documented by: Albuterol (Albuterol 8 Gm Inhaler) 0 gm INH Q4H PRN PRN Reason: Wheezing Arformoterol Tartrate (Arformoterol 15 Mcg/2 Ml Neb Soln) 15 mcg INH BIDRT [facility] Last Admin: 08/17/20 07:09 Dose: 15 mcg Documented by: Benzonatate (Benzonatate 100 Mg Cap) 100 mg PO TID PRN PRN Reason: Cough Last Admin: 08/17/20 04:12 Dose: 100 mg Documented by: Dexamethasone (Dexamethasone 2 Mg Tab) 2 mg PO BID [facility] Last Admin: 08/16/20 20:42 Dose: 2 mg Documented by: Doxycycline Hyclate (Doxycycline 100 Mg Cap) 100 mg PO Q12H [facility] Last Admin: 08/16/20 23:11 Dose: 100 mg Documented by: Fentanyl (Fentanyl 25 Mcg/Hr Transdermal Patch) 25 mcg TRDERM Q72H [facility] Gabapentin (Gabapentin 100 Mg Cap) 200 mg PO TID [facility] Last Admin: 08/16/20 20:42 Dose: 200 mg Documented by: Hydrochlorothiazide (Hydrochlorothiazide 25 Mg Tab) 25 mg PO DAILY [facility] Last Admin: 08/16/20 09:30 Dose: 25 mg Documented by: Hydromorphone HCl (Hydromorphone 0.5 Mg/0.5 Ml Syringe) 0.5 mg IVPUSH Q4H PRN PRN Reason: Pain Last Admin: 08/16/20 22:18 Dose: 0.5 mg Documented by: Lorazepam (Lorazepam 0.5 Mg Tab) 0.5 mg PO Q4H PRN PRN Reason: Anxiety Last Admin: 08/16/20 19:53 Dose: 0.5 mg Documented by: Urea 40% Cream (Ptom) 0 applic TOP BID PRN PRN Reason: Muscle soreness Verify Fentanyl (Patch) 0 each TOP BID [facility] Last Admin: 08/16/20 21:08 Dose: Not Given Documented by: Ondansetron HCl (Ondansetron 4 Mg/2 Ml Sdv) 4 mg IV Q4H PRN PRN Reason: Nausea/Vomiting Pantoprazole Sodium (Pantoprazole 40 Mg Tab.Cr) 40 mg PO ACBREAKFAST [facility] Last Admin: 08/17/20 08:03 Dose: 40 mg Documented by: Polyethylene Glycol (Polyethylene Glycol 3350 Powder 17 Gm Packet) 17 gm PO DAILY PRN PRN Reason: Constipation Last Admin: 08/15/20 10:49 Dose: 17 gm Documented by: Rivaroxaban (Rivaroxaban 10 Mg Tab) 20 mg PO DAILY [facility] Last Admin: 08/16/20 09:30 Dose: 20 mg Documented by: Senna/Docusate Sodium (Docusate Sodium/Sennosides 50-8.6 Mg Tab) 1 tab PO BID PRN PRN Reason: Constipation Last Admin: 08/15/20 10:49 Dose: 1 tab Documented by: Sodium Chloride (Sodium Chloride 0.9% 10 Ml Syringe) 10 ml FLUSH ASDIRECTED PRN PRN Reason: Keep Vein Open Tamsulosin HCl (Tamsulosin 0.4 Mg Cap.Er) 0.4 mg PO BEDTIME [facility] Last Admin: 08/16/20 20:42 Dose: 0.4 mg Documented by: Discontinued Medications Fentanyl (Fentanyl 12 Mcg/Hr Transdermal Patch) 12 mcg TRDERM Q72H [facility] Last Admin: 08/14/20 08:30 Dose: 12 mcg Documented by: Fentanyl (Fentanyl 12 Mcg/Hr Transdermal Patch) 12 mcg TRDERM ONETIME ONE Stop: 08/14/20 11:01 Last Admin: 08/14/20 11:49 Dose: 12 mcg Documented by: Gadoteridol (Gadoteridol 279.3 Mg/Ml 20 Ml Sdv) 20 ml IV . DIRECTED [facility] Stop: 08/16/20 11:31 Last Admin: 08/16/20 11:56 Dose: 20 ml Documented by: Hydromorphone HCl (Hydromorphone 0.5 Mg/0.5 Ml Syringe) 0.5 mg IVPUSH Q2H PRN PRN Reason: Pain Last Admin: 08/13/20 10:34 Dose: 0.5 mg Documented by: Potassium Chloride/Sodium Chloride (Normal Saline With 20 Meq Kcl) 1,000 mls @ 1,000 mls/hr IV ASDIRECTED [facility] Last Admin: 08/11/20 11:04 Dose: 1,000 mls/hr Documented by: Ceftriaxone Sodium 1 gm/ (Sodium Chloride) 50 mls @ 100 mls/hr IV Q24H [facility] Stop: 08/11/20 18:00 Last Admin: 08/11/20 14:30 Dose: 100 mls/hr Documented by: Doxycycline Hyclate 100 mg/ (Sodium Chloride) 100 mls @ 100 mls/hr IV Q12H [facility] Stop: 08/11/20 18:00 Last Admin: 08/11/20 14:55 Dose: 100 mls/hr Documented by: Sodium Chloride (Normal Saline) 1,000 mls @ 75 mls/hr IV ASDIRECTED [facility] Last Admin: 08/12/20 07:45 Dose: 75 mls/hr Documented by: Ceftriaxone Sodium 1 gm/ (Sodium Chloride) 50 mls @ 100 mls/hr IV Q24H [facility] Last Admin: 08/13/20 15:37 Dose: 100 mls/hr Documented by: Doxycycline Hyclate 100 mg/ (Sodium Chloride) 100 mls @ 100 mls/hr IV Q12H [facility] Last Admin: 08/14/20 01:15 Dose: 100 mls/hr Documented by: Lorazepam (Lorazepam 1 Mg Tab) 1 mg PO ONETIME ONE Stop: 08/16/20 09:41 Last Admin: 08/16/20 10:42 Dose: 1 mg Documented by: Oxycodone HCl (Oxycodone 5 Mg Tab) 5 mg PO ONETIME ONE Stop: 08/11/20 09:18 Last Admin: 08/11/20 09:36 Dose: 5 mg Documented by: Oxycodone HCl (Oxycodone 5 Mg Tab) 10 mg PO Q4H PRN PRN Reason: Pain Last Admin: 08/14/20 09:26 Dose: 10 mg Documented by: Rivaroxaban (Rivaroxaban 10 Mg Tab) 20 mg PO ONETIME ONE Stop: 08/11/20 10:01 Last Admin: 08/11/20 09:40 Dose: 20 mg Documented by: Simethicone (Simethicone 80 Mg Tab.Chew) 160 mg PO ONETIME ONE Stop: 08/11/20 10:41 Last Admin: 08/11/20 11:07 Dose: 160 mg Documented by: Sodium Chloride (Sodium Chloride 0.9% 10 Ml Syringe) 10 ml FLUSH ASDIRECTED PRN PRN Reason: Keep Vein Open Last Admin: 08/11/20 09:39 Dose: 10 ml Documented by: - Exam Quality Assessment: Supplemental Oxygen General: Alert, Oriented, Cooperative, No Acute Distress Lungs: Normal Respiratory Effort Cardiovascular: Regular Rate, Regular Rhythm GI/Abdominal Exam: Soft, Distended (mild) Extremities: No Pedal Edema Skin: Warm, Dry Psy/Mental Status: Alert, Normal Affect - Patient Data Result Diagrams: 08/13/20 05:30 08/13/20 05:30 Mehul Results Last 24 hrs: Microbiology 08/11/20 14:12 Aerobic Blood Culture - Final Blood - Arm, Left NO GROWTH AFTER 5 DAYS Anaerobic Blood Culture - Final NO GROWTH AFTER 5 DAYS 08/11/20 13:41 Aerobic Blood Culture - Final Blood - Venous NO GROWTH AFTER 5 DAYS Anaerobic Blood Culture - Final NO GROWTH AFTER 5 DAYS Sepsis Event Note - Evaluation Sepsis Screening Result: No Definite Risk - Focused Exam Vital Signs: Vital Signs Temp Pulse Resp BP Pulse Ox 08/17/20 07:38 36.3 C 100 18 136/86 96 08/17/20 04:08 35.8 C L 109 H 16 158/97 H 100 - Problem List Review Problem List Initiated/Reviewed/Updated: Yes - My Orders Last 24 Hours: My Active Orders 08/16/20 13:53 OT Evaluation and Treatment [CONS] Routine 08/16/20 14:00 Gabapentin [Neurontin] 200 mg PO TID 08/16/20 19:39 LORazepam [Ativan] 0.5 mg PO Q4H PRN 08/17/20 09:00 fentaNYL [Duragesic] 25 mcg TRDERM Q72H 08/17/20 10:44 Femur Min 2V Lt [CR] Routine - Plan Plan:: ASSESSMENT AND PLAN HYPOXIC RESPIRATORY FAILURE-he has a known history of left lung cancer status post previous partial left lung resection. Complicated by recent pulmonary embolism in the left lung. Slowly improving but still requires some supplement al oxygen. -Supplemental oxygen as needed, wean as able -May need home oxygen Probable bronchitis-chest x-ray initially raised concern for pneumonia but not seen on CT scan. Suspect bronchitis with increased cough, dyspnea and hypoxia. Cultures negative so far. -Continue doxycycline GENERALIZED WEAKNESS-likely secondary to current infection and shortness of breath as well as underlying lung cancer. Slow improvement in overall strength, activity improved with increased pain control. -Physical therapy and Occupational Therapy consults NON-SMALL CELL CANCER OF THE LUNG STAGE IV-ongoing difficulty with pain and this has been her main issue the last few days. Patient has episodes of severe pain that requires IV narcotics to provide any sort of comfort. CT of the chest completed on 08/09 did show a probable subacute compression fracture at T7. This would fit with the area of his pain if it were to radiate from that area around the chest. -MRI of the thoracic spine tomorrow morning -Increase fentanyl patch to 25 mcg -Hydrocodone 10 mg every 4 hours as needed -Trial of gabapentin -Trial of muscle relaxer -Outpatient follow-up with oncology RECENT PULMONARY EMBOLISM-requiring supplemental oxygen as above. -Continue current oral anticoagulation MAINTENANCE ISSUES -DVT prophylaxis; rivaroxaban -GI prophylaxis; continue outpatient PPI therapy -Velazquez catheter; not indicated -Nutrition; 2 g sodium diet DISPOSITION-anticipate discharge to home probably with home care after the ho spital stay, hopefully in a day or 2. Ayad Villarreal MD
[2020-08-17] MEDS: Rivaroxaban 10 MG Tab PO SCH (10:47)
[2020-08-17] MEDS: VERIFY FENTANYL PATCH TOP SCH ×2 (10:47→20:15)
[2020-08-17] MEDS: HYDROmorphone 0.5 MG/0.5 ML Syringe IVPUSH PRN (13:00)
[2020-08-17] MEDS: LORazepam 0.5 MG Tab PO PRN (13:13)
[2020-08-17] MEDS ORDERED: fentaNYL 100 MCG/2 ML SDV IVPUSH ONE (13:22)
--- NOTE | 2020-08-17 13:27 | CR ---
Femur Min 2V Lt CLINICAL HISTORY: Thigh pain, no trauma FINDINGS: There is no acute fracture or dislocation within the foot. No destructive changes are present. There is joint space narrowing at the knee IMPRESSION: No acute bony process. 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
[2020-08-17] MEDS: tiZANidine 4 MG Tab PO PRN (14:07)
[2020-08-17] MEDS: Tamsulosin 0.4 MG Cap.ER PO SCH (20:15)
[2020-08-18] MEDS: Benzonatate 100 MG Cap PO PRN ×3 (01:09→20:05)
[2020-08-18] MEDS: Acetaminophen/HYDROcodone 325-10 MG Tab PO PRN ×5 (01:09→22:32)
[2020-08-18] MEDS: tiZANidine 4 MG Tab PO PRN (01:44)
[2020-08-18] MEDS: LORazepam 0.5 MG Tab PO PRN (04:20)
[2020-08-18] MEDS: HYDROmorphone 0.5 MG/0.5 ML Syringe IVPUSH PRN ×2 (04:23→09:48)
[2020-08-18] MEDS: Arformoterol 15 MCG/2 ML Neb Soln INH SCH ×2 (07:05→20:12)
[2020-08-18] MEDS: Pantoprazole 40 MG Tab.CR PO SCH (07:37)
[2020-08-18] MEDS ORDERED: Gadoteridol 279.3 MG/ML 15 ML SDV IV SCH (09:00)
[2020-08-18] MEDS: Gabapentin 100 MG Cap PO SCH ×3 (09:30→20:11)
[2020-08-18] MEDS: Dexamethasone 2 MG Tab PO SCH ×2 (09:30→20:11)
[2020-08-18] MEDS: Rivaroxaban 10 MG Tab PO SCH (09:31)
[2020-08-18] MEDS: Hydrochlorothiazide 25 MG Tab PO SCH (09:32)
[2020-08-18] MEDS: VERIFY FENTANYL PATCH TOP SCH ×2 (10:16→22:32)
--- NOTE | 2020-08-18 11:12 | MR ---
Thoracic Spine Comp w wo Cont CLINICAL HISTORY: History of lung and brain cancer, T7 compression fracture COMPARISON: CT 08/09/2020 TECHNIQUE: Multiple pulse sequences were obtained in the sagittal and axial planes both without and with the IV infusion 15 mL of ProHance. All images were obtained on a 1.5 Bree unit. FINDINGS: Sagittal images show compression fracture of T7. There is approximately 50% loss of vertebral body height. There is also some increased fat signal from T5 through T8. This may have been a previous radiation port. There is some faint enhancement on post gadolinium images of questionable significance. No paravertebral mass is identified. No cortical destruction is identified. There is relative sparing of the pedicles. The conus medullaris and lumbar nerve roots have a normal signal and configuration .Axial images show mild encroachment on the spinal canal. IMPRESSION: T7 compression fracture with no obvious underlying lesion. Faint enhancement is of doubtful significance. No other evidence of metastatic disease Normal fat signal in the marrow of the adjoining vertebrae. These may have been in a radiation port for treatment of lung lesion.
[2020-08-18] MEDS: Doxycycline 100 MG Cap PO SCH ×2 (11:15→22:33)
--- NOTE | 2020-08-18 12:03 | PCM.PN ---
- General Info Date of Service: 08/18/20 Subjective Update: There were no acute events overnight. Patient has had good pain control since yesterday afternoon. He remains weak but is getting around with help and was able to sit up for breakfast. No significant anxiety today. No complaints of shortness of breath but he does continue to require a small amount of supplemental oxygen. Thoracic spine MRI showed 50% compression fracture at T7 with no significant nerve root involvement. Functional Status: Reports: Pain Controlled - Review of Systems General: Denies: Fever Cardiovascular: Reports: Chest Pain - Patient Data Vitals - Most Recent: Last Vital Signs Temp 35.8 C L 08/18/20 11:00 Pulse 107 H 08/18/20 11:00 Resp 18 08/18/20 11:00 BP 139/89 08/18/20 11:00 Pulse Ox 94 L 08/18/20 11:00 Weight - Most Recent: 86.273 kg I&O - Last 24 Hours: Intake & Output 08/17/20 08/18/20 08/18/20 22:59 06:59 14:59 Intake Total 120 200 Balance 120 200 Med Orders - Current: Current Medications Acetaminophen (Acetaminophen 325 Mg Tab) 650 mg PO Q4H PRN PRN Reason: Pain (Mild 1-3)/fever Last Admin: 08/11/20 14:51 Dose: 650 mg Documented by: Hydrocodone Bitart/Acetaminophen (Acetaminophen/Hydrocodone 325-10 Mg Tab) 1 tab PO Q4H PRN PRN Reason: Pain Last Admin: 08/18/20 07:36 Dose: 1 tab Documented by: Albuterol (Albuterol 8 Gm Inhaler) 0 gm INH Q4H PRN PRN Reason: Wheezing Arformoterol Tartrate (Arformoterol 15 Mcg/2 Ml Neb Soln) 15 mcg INH BIDRT [facility] Last Admin: 08/18/20 07:05 Dose: 15 mcg Documented by: Benzonatate (Benzonatate 100 Mg Cap) 100 mg PO TID PRN PRN Reason: Cough Last Admin: 08/18/20 09:39 Dose: 100 mg Documented by: Dexamethasone (Dexamethasone 2 Mg Tab) 2 mg PO BID [facility] Last Admin: 08/18/20 09:30 Dose: 2 mg Documented by: Doxycycline Hyclate (Doxycycline 100 Mg Cap) 100 mg PO Q12H [facility] Last Admin: 08/18/20 11:15 Dose: 100 mg Documented by: Fentanyl (Fentanyl 25 Mcg/Hr Transdermal Patch) 25 mcg TRDERM Q72H [facility] Last Admin: 08/17/20 10:43 Dose: 25 mcg Documented by: Gabapentin (Gabapentin 100 Mg Cap) 200 mg PO TID [facility] Last Admin: 08/18/20 09:30 Dose: 200 mg Documented by: Heparin Sodium (Porcine) (Heparin Sodium 100 Units/Ml 5 Ml Syringe) 500 units IVPUSH ASDIRECTED PRN 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 Last Admin: 08/18/20 09:49 Dose: 500 units Documented by: Hydrochlorothiazide (Hydrochlorothiazide 25 Mg Tab) 25 mg PO DAILY [facility] Last Admin: 08/18/20 09:32 Dose: 25 mg Documented by: Hydromorphone HCl (Hydromorphone 0.5 Mg/0.5 Ml Syringe) 0.5 mg IVPUSH Q4H PRN PRN Reason: Pain Last Admin: 08/18/20 09:48 Dose: 0.5 mg Documented by: Lorazepam (Lorazepam 0.5 Mg Tab) 0.5 mg PO Q4H PRN PRN Reason: Anxiety Last Admin: 08/18/20 04:20 Dose: 0.5 mg Documented by: Urea 40% Cream (Ptom) 0 applic TOP BID PRN PRN Reason: Muscle soreness Verify Fentanyl (Patch) 0 each TOP BID [facility] Last Admin: 08/18/20 10:16 Dose: Not Given Documented by: Ondansetron HCl (Ondansetron 4 Mg/2 Ml Sdv) 4 mg IV Q4H PRN PRN Reason: Nausea/Vomiting Pantoprazole Sodium (Pantoprazole 40 Mg Tab.Cr) 40 mg PO ACBREAKFAST [facility] Last Admin: 08/18/20 07:37 Dose: 40 mg Documented by: Polyethylene Glycol (Polyethylene Glycol 3350 Powder 17 Gm Packet) 17 gm PO DAILY PRN PRN Reason: Constipation Last Admin: 08/15/20 10:49 Dose: 17 gm Documented by: Rivaroxaban (Rivaroxaban 10 Mg Tab) 20 mg PO DAILY [facility] Last Admin: 08/18/20 09:31 Dose: 20 mg Documented by: Senna/Docusate Sodium (Docusate Sodium/Sennosides 50-8.6 Mg Tab) 1 tab PO BID PRN PRN Reason: Constipation Last Admin: 08/18/20 09:39 Dose: 1 tab Documented by: Sodium Chloride (Sodium Chloride 0.9% 10 Ml Syringe) 10 ml FLUSH ASDIRECTED PRN PRN Reason: Keep Vein Open Tamsulosin HCl (Tamsulosin 0.4 Mg Cap.Er) 0.4 mg PO BEDTIME [facility] Last Admin: 08/17/20 20:15 Dose: 0.4 mg Documented by: Tizanidine HCl (Tizanidine 4 Mg Tab) 2 mg PO Q6H PRN PRN Reason: Muscle Spasm Last Admin: 08/18/20 01:44 Dose: 2 mg Documented by: Discontinued Medications Fentanyl (Fentanyl 12 Mcg/Hr Transdermal Patch) 12 mcg TRDERM Q72H [facility] Last Admin: 08/14/20 08:30 Dose: 12 mcg Documented by: Fentanyl (Fentanyl 12 Mcg/Hr Transdermal Patch) 12 mcg TRDERM ONETIME ONE Stop: 08/14/20 11:01 Last Admin: 08/14/20 11:49 Dose: 12 mcg Documented by: Fentanyl (Fentanyl 100 Mcg/2 Ml Sdv) 50 mcg IVPUSH ONETIME ONE Stop: 08/17/20 13:23 Last Admin: 08/17/20 13:29 Dose: 50 mcg Documented by: Gadoteridol (Gadoteridol 279.3 Mg/Ml 20 Ml Sdv) 20 ml IV . DIRECTED [facility] Stop: 08/16/20 11:31 Last Admin: 08/16/20 11:56 Dose: 20 ml Documented by: Gadoteridol (Gadoteridol 279.3 Mg/Ml 15 Ml Sdv) 15 ml IV .A DIRECTED [facility] Stop: 08/18/20 09:01 Last Admin: 08/18/20 09:05 Dose: 15 ml Documented by: Hydromorphone HCl (Hydromorphone 0.5 Mg/0.5 Ml Syringe) 0.5 mg IVPUSH Q2H PRN PRN Reason: Pain Last Admin: 08/13/20 10:34 Dose: 0.5 mg Documented by: Potassium Chloride/Sodium Chloride (Normal Saline With 20 Meq Kcl) 1,000 mls @ 1,000 mls/hr IV ASDIRECTED [facility] Last Admin: 08/11/20 11:04 Dose: 1,000 mls/hr Documented by: Ceftriaxone Sodium 1 gm/ (Sodium Chloride) 50 mls @ 100 mls/hr IV Q24H [facility] Stop: 08/11/20 18:00 Last Admin: 08/11/20 14:30 Dose: 100 mls/hr Documented by: Doxycycline Hyclate 100 mg/ (Sodium Chloride) 100 mls @ 100 mls/hr IV Q12H [facility] Stop: 08/11/20 18:00 Last Admin: 08/11/20 14:55 Dose: 100 mls/hr Documented by: Sodium Chloride (Normal Saline) 1,000 mls @ 75 mls/hr IV ASDIRECTED [facility] Last Admin: 08/12/20 07:45 Dose: 75 mls/hr Documented by: Ceftriaxone Sodium 1 gm/ (Sodium Chloride) 50 mls @ 100 mls/hr IV Q24H [facility] Last Admin: 08/13/20 15:37 Dose: 100 mls/hr Documented by: Doxycycline Hyclate 100 mg/ (Sodium Chloride) 100 mls @ 100 mls/hr IV Q12H [facility] Last Admin: 08/14/20 01:15 Dose: 100 mls/hr Documented by: Lorazepam (Lorazepam 1 Mg Tab) 1 mg PO ONETIME ONE Stop: 08/16/20 09:41 Last Admin: 08/16/20 10:42 Dose: 1 mg Documented by: Oxycodone HCl (Oxycodone 5 Mg Tab) 5 mg PO ONETIME ONE Stop: 08/11/20 09:18 Last Admin: 08/11/20 09:36 Dose: 5 mg Documented by: Oxycodone HCl (Oxycodone 5 Mg Tab) 10 mg PO Q4H PRN PRN Reason: Pain Last Admin: 08/14/20 09:26 Dose: 10 mg Documented by: Rivaroxaban (Rivaroxaban 10 Mg Tab) 20 mg PO ONETIME ONE Stop: 08/11/20 10:01 Last Admin: 08/11/20 09:40 Dose: 20 mg Documented by: Simethicone (Simethicone 80 Mg Tab.Chew) 160 mg PO ONETIME ONE Stop: 08/11/20 10:41 Last Admin: 08/11/20 11:07 Dose: 160 mg Documented by: Sodium Chloride (Sodium Chloride 0.9% 10 Ml Syringe) 10 ml FLUSH ASDIRECTED PRN PRN Reason: Keep Vein Open Last Admin: 08/11/20 09:39 Dose: 10 ml Documented by: - Exam Quality Assessment: No: Supplemental Oxygen Central Line Total Time: 0Days 2Hours General: Alert, Cooperative, No Acute Distress Lungs: Clear to Auscultation, Normal Respiratory Effort Cardiovascular: Regular Rate, Regular Rhythm GI/Abdominal Exam: Normal Bowel Sounds, Soft, No Distention Extremities: No Pedal Edema. No: Increased Warmth Skin: Warm, Dry Psy/Mental Status: Alert, Normal Affect - Patient Data Result Diagrams: 08/13/20 05:30 08/13/20 05:30 Sepsis Event Note - Evaluation Sepsis Screening Result: No Definite Risk - Focused Exam Vital Signs: Vital Signs Temp Pulse Resp BP Pulse Ox Pulse Ox 08/18/20 11:00 35.8 C L 107 H 18 139/89 94 L 08/18/20 07:58 92 L 08/18/20 07:00 36.1 C 99 18 121/88 97 - Problem List Review Problem List Initiated/Reviewed/Updated: Yes - My Orders Last 24 Hours: My Active Orders 08/17/20 12:58 tiZANidine [Zanaflex] 2 mg PO Q6H PRN 08/17/20 13:20 Heparin Sodium [Heparin Lock Flush 100 Units/ML] 500 units IVPUSH ASDIRECTED PRN - Plan Plan:: ASSESSMENT AND PLAN HYPOXIC RESPIRATORY FAILURE-he has a known history of left lung cancer status post previous partial left lung resection. Complicated by recent pulmonary embolism in the left lung. Slowly improving but still requires minimal supplemental oxygen. -Supplemental oxygen as needed, wean as able -May need home oxygen Probable bronchitis-chest x-ray initially raised concern for pneumonia but not seen on CT scan. Suspect bronchitis with increased cough, dyspnea and hypoxia. Cultures negative so far. -Continue doxycycline T7 compression fracture-I suspect this is contributing to a radicular type pain with both left and right-sided chest pain. No other obvious cause for the excruciating pain that he has been dealing with. He is improving with the medication changes and it seems like the gabapentin has made the biggest impact. -Continue fentanyl patch -Scheduled gabapentin -As needed hydrocodone -As needed muscle relaxer -Continue physical therapy GENERALIZED WEAKNESS-likely secondary to current infection and shortness of breath as well as underlying lung cancer. Slow improvement in overall strength, activity improved with increased pain control. -Physical therapy and Occupational Therapy consults NON-SMALL CELL CANCER OF THE LUNG STAGE IV-to large but stable metastases to the brain as well as cancer related pain. -Outpatient follow-up with oncology RECENT PULMONARY EMBOLISM-requiring supplemental oxygen as above. -Continue current oral anticoagulation MAINTENANCE ISSUES -DVT prophylaxis; rivaroxaban -GI prophylaxis; continue outpatient PPI therapy -Velazquez catheter; not indicated -Nutrition; 2 g sodium diet DISPOSITION-anticipate discharge to home probably with home care after the hospital stay, hopefully in a day or 2. Ayad Villarreal MD
[2020-08-18] MEDS: Tamsulosin 0.4 MG Cap.ER PO SCH (20:12)
[2020-08-19] MEDS: Acetaminophen/HYDROcodone 325-10 MG Tab PO PRN ×2 (02:29→06:34)
[2020-08-19] MEDS: LORazepam 0.5 MG Tab PO PRN ×4 (02:31→20:09)
[2020-08-19] MEDS: tiZANidine 4 MG Tab PO PRN ×2 (03:30→11:15)
[2020-08-19] MEDS: Benzonatate 100 MG Cap PO PRN (04:07)
[2020-08-19] MEDS: HYDROmorphone 0.5 MG/0.5 ML Syringe IVPUSH PRN ×2 (04:17→07:56)
[2020-08-19] MEDS: Albuterol 8 GM Inhaler INH PRN (05:02)
[2020-08-19] MEDS: Arformoterol 15 MCG/2 ML Neb Soln INH SCH ×2 (07:13→20:08)
[2020-08-19] MEDS: Pantoprazole 40 MG Tab.CR PO SCH (07:56)
[2020-08-19] MEDS ORDERED: Albuterol 0.083% 2.5 MG/3 ML Neb Soln NEB PRN (09:43)
[2020-08-19] MEDS: Dexamethasone 2 MG Tab PO SCH ×2 (09:44→20:07)
[2020-08-19] MEDS: Gabapentin 100 MG Cap PO SCH ×3 (09:44→20:07)
[2020-08-19] MEDS: Hydrochlorothiazide 25 MG Tab PO SCH (09:44)
[2020-08-19] MEDS: VERIFY FENTANYL PATCH TOP SCH ×2 (09:45→20:08)
[2020-08-19] MEDS: Rivaroxaban 10 MG Tab PO SCH (09:45)
[2020-08-19] MEDS: Acetaminophen/HYDROcodone 325-7.5 MG Tab PO PRN ×3 (10:26→20:09)
[2020-08-19] MEDS: Doxycycline 100 MG Cap PO SCH (10:28)
--- NOTE | 2020-08-19 11:07 | PCM.PN ---
- General Info Date of Service: 08/19/20 Subjective Update: Overnight the patient had difficulty with initially a coughing spell that led to shortness of breath followed by increased anxiety and then a rapid increase in t he pain on both sides of his chest. It took a variety of medications to calm down the episode. He is comfortable at this time for the most part. He did have a small coughing spell while I was in the room which led to a large increase in his pain. No complaints of abdominal pain or nausea. He thinks his abdomen is about the normal size. He is off supplemental oxygen as of this morning. Functional Status: Reports: Pain Controlled, Tolerating Diet - Review of Systems General: Denies: Fever Pulmonary: Reports: Cough Cardiovascular: Reports: Chest Pain Psychiatric: Reports: Anxiety - Patient Data Vitals - Most Recent: Last Vital Signs Temp 35.8 C L 08/19/20 08:05 Pulse 111 H 08/19/20 08:05 Resp 18 08/19/20 08:05 BP 128/81 08/19/20 07:00 Pulse Ox 96 08/19/20 08:05 Weight - Most Recent: 86.273 kg I&O - Last 24 Hours: Intake & Output 08/18/20 08/19/20 08/19/20 22:59 06:59 14:59 Intake Total 240 296 120 Balance 240 296 120 Med Orders - Current: Current Medications Acetaminophen (Acetaminophen 325 Mg Tab) 650 mg PO Q4H PRN PRN Reason: Pain (Mild 1-3)/fever Last Admin: 08/11/20 14:51 Dose: 650 mg Documented by: Hydrocodone Bitart/Acetaminophen (Acetaminophen/Hydrocodone 325-7.5 Mg Tab) 2 tab PO Q4H PRN PRN Reason: Pain Last Admin: 08/19/20 10:26 Dose: 2 tab Documented by: Albuterol (Albuterol 8 Gm Inhaler) 0 gm INH Q4H PRN PRN Reason: Wheezing Last Admin: 08/19/20 05:02 Dose: 2 puff Documented by: Albuterol (Albuterol 0.083% 2.5 Mg/3 Ml Neb Soln) 2.5 mg NEB Q4H PRN PRN Reason: shortness of breath/wheezing Arformoterol Tartrate (Arformoterol 15 Mcg/2 Ml Neb Soln) 15 mcg INH BIDRT RAYMOND Last Admin: 08/19/20 07:13 Dose: 15 mcg Documented by: Benzonatate (Benzonatate 100 Mg Cap) 100 mg PO TID [facility] Calcitonin [place] (Calcitonin ([place]) Nasal [place] 3.7 Ml Bottle) 1 ml LOR DAILY [facility] Dexamethasone (Dexamethasone 2 Mg Tab) 2 mg PO BID [facility] Last Admin: 08/19/20 09:44 Dose: 2 mg Documented by: Doxycycline Hyclate (Doxycycline 100 Mg Cap) 100 mg PO Q12H [facility] Last Admin: 08/19/20 10:28 Dose: 100 mg Documented by: Fentanyl (Fentanyl 25 Mcg/Hr Transdermal Patch) 25 mcg TRDERM Q72H [facility] Last Admin: 08/17/20 10:43 Dose: 25 mcg Documented by: Gabapentin (Gabapentin 100 Mg Cap) 200 mg PO TID [facility] Last Admin: 08/19/20 09:44 Dose: 200 mg Documented by: Guaifenesin/Dextromethorphan (Guaifenesin/Dextromethorphan 100-10 Mg/5 Ml Soln 10 Ml Cup) 10 ml PO Q4H PRN PRN Reason: Cough Heparin Sodium (Porcine) (Heparin Sodium 100 Units/Ml 5 Ml Syringe) 500 units IVPUSH ASDIRECTED PRN 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 Last Admin: 08/19/20 07:56 Dose: 500 units Documented by: Hydrochlorothiazide (Hydrochlorothiazide 25 Mg Tab) 25 mg PO DAILY [facility] Last Admin: 08/19/20 09:44 Dose: 25 mg Documented by: Hydromorphone HCl (Hydromorphone 0.5 Mg/0.5 Ml Syringe) 0.5 mg IVPUSH Q4H PRN PRN Reason: Pain Last Admin: 08/19/20 07:56 Dose: 0.5 mg Documented by: Lorazepam (Lorazepam 0.5 Mg Tab) 0.5 mg PO Q4H PRN PRN Reason: Anxiety Last Admin: 08/19/20 06:35 Dose: 0.5 mg Documented by: Urea 40% Cream (Ptom) 0 applic TOP BID PRN PRN Reason: Muscle soreness Verify Fentanyl (Patch) 0 each TOP BID [facility] Last Admin: 08/19/20 09:45 Dose: Not Given Documented by: Ondansetron HCl (Ondansetron 4 Mg/2 Ml Sdv) 4 mg IV Q4H PRN PRN Reason: Nausea/Vomiting Pantoprazole Sodium (Pantoprazole 40 Mg Tab.Cr) 40 mg PO ACBREAKFAST [facility] Last Admin: 08/19/20 07:56 Dose: 40 mg Documented by: Polyethylene Glycol (Polyethylene Glycol 3350 Powder 17 Gm Packet) 17 gm PO DAILY PRN PRN Reason: Constipation Last Admin: 08/15/20 10:49 Dose: 17 gm Documented by: Rivaroxaban (Rivaroxaban 10 Mg Tab) 20 mg PO DAILY [facility] Last Admin: 08/19/20 09:45 Dose: 20 mg Documented by: Senna/Docusate Sodium (Docusate Sodium/Sennosides 50-8.6 Mg Tab) 1 tab PO BID PRN PRN Reason: Constipation Last Admin: 08/19/20 07:55 Dose: 1 tab Documented by: Sodium Chloride (Sodium Chloride 0.9% 10 Ml Syringe) 10 ml FLUSH ASDIRECTED PRN PRN Reason: Keep Vein Open Tamsulosin HCl (Tamsulosin 0.4 Mg Cap.Er) 0.4 mg PO BEDTIME [facility] Last Admin: 08/18/20 20:12 Dose: 0.4 mg Documented by: Tizanidine HCl (Tizanidine 4 Mg Tab) 2 mg PO Q6H PRN PRN Reason: Muscle Spasm Last Admin: 08/19/20 03:30 Dose: 2 mg Documented by: Discontinued Medications Hydrocodone Bitart/Acetaminophen (Acetaminophen/Hydrocodone 325-10 Mg Tab) 1 tab PO Q4H PRN PRN Reason: Pain Last Admin: 08/19/20 06:34 Dose: 1 tab Documented by: Benzonatate (Benzonatate 100 Mg Cap) 100 mg PO TID PRN PRN Reason: Cough Last Admin: 08/19/20 04:07 Dose: 100 mg Documented by: Fentanyl (Fentanyl 12 Mcg/Hr Transdermal Patch) 12 mcg TRDERM Q72H [facility] Last Admin: 08/14/20 08:30 Dose: 12 mcg Documented by: Fentanyl (Fentanyl 12 Mcg/Hr Transdermal Patch) 12 mcg TRDERM ONETIME ONE Stop: 08/14/20 11:01 Last Admin: 08/14/20 11:49 Dose: 12 mcg Documented by: Fentanyl (Fentanyl 100 Mcg/2 Ml Sdv) 50 mcg IVPUSH ONETIME ONE Stop: 08/17/20 13:23 Last Admin: 08/17/20 13:29 Dose: 50 mcg Documented by: Gadoteridol (Gadoteridol 279.3 Mg/Ml 20 Ml Sdv) 20 ml IV . DIRECTED [facility] Stop: 08/16/20 11:31 Last Admin: 08/16/20 11:56 Dose: 20 ml Documented by: Gadoteridol (Gadoteridol 279.3 Mg/Ml 15 Ml Sdv) 15 ml IV .A DIRECTED [facility] Stop: 08/18/20 09:01 Last Admin: 08/18/20 09:05 Dose: 15 ml Documented by: Hydromorphone HCl (Hydromorphone 0.5 Mg/0.5 Ml Syringe) 0.5 mg IVPUSH Q2H PRN PRN Reason: Pain Last Admin: 08/13/20 10:34 Dose: 0.5 mg Documented by: Potassium Chloride/Sodium Chloride (Normal Saline With 20 Meq Kcl) 1,000 mls @ 1,000 mls/hr IV ASDIRECTED [facility] Last Admin: 08/11/20 11:04 Dose: 1,000 mls/hr Documented by: Ceftriaxone Sodium 1 gm/ (Sodium Chloride) 50 mls @ 100 mls/hr IV Q24H [facility] Stop: 08/11/20 18:00 Last Admin: 08/11/20 14:30 Dose: 100 mls/hr Documented by: Doxycycline Hyclate 100 mg/ (Sodium Chloride) 100 mls @ 100 mls/hr IV Q12H [facility] Stop: 08/11/20 18:00 Last Admin: 08/11/20 14:55 Dose: 100 mls/hr Documented by: Sodium Chloride (Normal Saline) 1,000 mls @ 75 mls/hr IV ASDIRECTED [facility] Last Admin: 08/12/20 07:45 Dose: 75 mls/hr Documented by: Ceftriaxone Sodium 1 gm/ (Sodium Chloride) 50 mls @ 100 mls/hr IV Q24H [facility] Last Admin: 08/13/20 15:37 Dose: 100 mls/hr Documented by: Doxycycline Hyclate 100 mg/ (Sodium Chloride) 100 mls @ 100 mls/hr IV Q12H [facility] Last Admin: 08/14/20 01:15 Dose: 100 mls/hr Documented by: Lorazepam (Lorazepam 1 Mg Tab) 1 mg PO ONETIME ONE Stop: 08/16/20 09:41 Last Admin: 08/16/20 10:42 Dose: 1 mg Documented by: Oxycodone HCl (Oxycodone 5 Mg Tab) 5 mg PO ONETIME ONE Stop: 08/11/20 09:18 Last Admin: 08/11/20 09:36 Dose: 5 mg Documented by: Oxycodone HCl (Oxycodone 5 Mg Tab) 10 mg PO Q4H PRN PRN Reason: Pain Last Admin: 08/14/20 09:26 Dose: 10 mg Documented by: Rivaroxaban (Rivaroxaban 10 Mg Tab) 20 mg PO ONETIME ONE Stop: 08/11/20 10:01 Last Admin: 08/11/20 09:40 Dose: 20 mg Documented by: Simethicone (Simethicone 80 Mg Tab.Chew) 160 mg PO ONETIME ONE Stop: 08/11/20 10:41 Last Admin: 08/11/20 11:07 Dose: 160 mg Documented by: Sodium Chloride (Sodium Chloride 0.9% 10 Ml Syringe) 10 ml FLUSH ASDIRECTED PRN PRN Reason: Keep Vein Open Last Admin: 08/11/20 09:39 Dose: 10 ml Documented by: - Exam Quality Assessment: No: Supplemental Oxygen Central Line Total Time: 0Days 2Hours General: Alert, Oriented, Cooperative, No Acute Distress Lungs: Clear to Auscultation, Normal Respiratory Effort Cardiovascular: Regular Rate, Regular Rhythm GI/Abdominal Exam: Soft, No Distention Extremities: No Pedal Edema. No: Increased Warmth Skin: Warm, Dry Psy/Mental Status: Alert, Normal Affect - Patient Data Result Diagrams: 08/13/20 05:30 08/13/20 05:30 Sepsis Event Note - Evaluation Sepsis Screening Result: No Definite Risk - Focused Exam Vital Signs: Vital Signs Temp Pulse Resp BP Pulse Ox Pulse Ox 08/19/20 08:05 35.8 C L 111 H 18 96 08/19/20 08:00 96 08/19/20 07:34 102 H 08/19/20 07:00 35.3 C L 100 18 128/81 95 08/18/20 23:24 35.5 C L 92 16 112/81 95 - Problem List Review Problem List Initiated/Reviewed/Updated: Yes - My Orders Last 24 Hours: My Active Orders 08/19/20 09:43 RT Aerosol Therapy [RC] ASDIRECTED Acetaminophen/HYDROcodone [[place] 325-7.5 MG] 2 tab PO Q4H PRN Albuterol [Proventil Neb Soln] 2.5 mg NEB Q4H PRN 08/19/20 11:05 Dextromethorphan/guaiFENesin [Robitussin DM] 10 ml PO Q4H PRN 08/19/20 11:15 Calcitonin ([place]) [Miacalcin Nasal [place]] 1 ml LOR DAILY 08/19/20 14:00 Benzonatate [Tessalon Per[place]] 100 mg PO TID 08/20/20 05:00 BASIC METABOLIC PANEL,BMP [CHEM] Timed CBC W/O DIFF,HEMOGRAM [HEME] Timed (1) - Plan Plan:: ASSESSMENT AND PLAN HYPOXIC RESPIRATORY FAILURE-he has a known history of left lung cancer status post previous partial left lung resection. Complicated by recent pulmonary embolism in the left lung. Did require oxygen overnight but off as of this morning. -Supplemental oxygen as needed, wean as able -May need home oxygen Probable bronchitis-chest x-ray initially raised concern for pneumonia but not seen on CT scan. Suspect bronchitis with increased cough, dyspnea and recent hypoxia. Cultures negative and he has completed adequate treatment. -Discontinue doxycycline T7 compression fracture-I suspect this is contributing to a radicular type pain with both left and right-sided chest pain. No other obvious cause. Coughing seems to be the trigger for increased pain recently. -Scheduled and as needed cough suppressants -Start calcitonin -Continue fentanyl patch -Scheduled gabapentin -As needed hydrocodone -As needed muscle relaxer -Continue physical therapy GENERALIZED WEAKNESS-likely secondary to current infection and shortness of breath as well as underlying lung cancer. Slow improvement in overall strength, activity improved with increased pain control. -Physical therapy and Occupational Therapy consults NON-SMALL CELL CANCER OF THE LUNG STAGE IV-to large but stable metastases to the brain as well as cancer related pain. -Outpatient follow-up with oncology RECENT PULMONARY EMBOLISM-requiring supplemental oxygen as above. -Continue current oral anticoagulation MAINTENANCE ISSUES -DVT prophylaxis; rivaroxaban -GI prophylaxis; continue outpatient PPI therapy -Velazquez catheter; not indicated -Nutrition; 2 g sodium diet DISPOSITION-anticipate discharge to home probably with home care after the hospital stay, hopefully tomorrow if stable overnight. Still having episodes of severe pain requiring intermittent IV analgesia. Ayad Villarreal, MD
[2020-08-19] MEDS: guaiFENesin/Dextromethorphan 100-10 MG/5 ML Soln 10 ML Cup PO PRN ×3 (11:19→23:24)
[2020-08-19] MEDS: Calcitonin (Salmon) Nasal Spray 3.7 ML Bottle NAS SCH (12:41)
[2020-08-19] MEDS: Benzonatate 100 MG Cap PO SCH ×2 (14:48→20:07)
[2020-08-19] MEDS: Polyethylene Glycol 3350 Powder 17 GM Packet PO PRN (14:51)
[2020-08-19] MEDS ORDERED: Melatonin 3 MG Tab PO PRN (20:06)
[2020-08-19] MEDS: Tamsulosin 0.4 MG Cap.ER PO SCH (20:07)
[2020-08-20] MEDS: LORazepam 0.5 MG Tab PO PRN ×3 (00:22→09:07)
[2020-08-20] MEDS: Acetaminophen/HYDROcodone 325-7.5 MG Tab PO PRN ×5 (00:22→21:26)
[2020-08-20] MEDS: guaiFENesin/Dextromethorphan 100-10 MG/5 ML Soln 10 ML Cup PO PRN ×3 (03:44→13:17)
[2020-08-20] MEDS: Arformoterol 15 MCG/2 ML Neb Soln INH SCH ×2 (07:21→21:26)
[2020-08-20] MEDS: Pantoprazole 40 MG Tab.CR PO SCH (07:40)
[2020-08-20] MEDS: Hydrochlorothiazide 25 MG Tab PO SCH (09:09)
[2020-08-20] MEDS: Rivaroxaban 10 MG Tab PO SCH (09:09)
[2020-08-20] MEDS: Gabapentin 100 MG Cap PO SCH ×3 (09:09→21:26)
[2020-08-20] MEDS: Dexamethasone 2 MG Tab PO SCH ×2 (09:10→21:26)
[2020-08-20] MEDS: Calcitonin (Salmon) Nasal Spray 3.7 ML Bottle NAS SCH (09:10)
[2020-08-20] MEDS: Benzonatate 100 MG Cap PO SCH ×3 (09:10→21:27)
[2020-08-20] MEDS: fentaNYL 25 MCG/HR Transdermal Patch TRDERM SCH (09:11)
[2020-08-20] MEDS: VERIFY FENTANYL PATCH TOP SCH ×2 (09:33→21:11)
--- NOTE | 2020-08-20 11:57 | PCM.PN ---
- General Info Date of Service: 08/20/20 Subjective Update: No acute events overnight. Patient reports that his pain control is pretty good today. He did have a mild episode of anxiety this morning that resolved fairly quickly. Continues to have some intermittent pains radiating from his mid back around both sides of his chest. Cough is a little better today. He has been confused and possibly hallucinating, more so today than the last few days. Still no bowel movement. No headaches. Weak and requiring assistance with any sort of transfer or ambulation. Functional Status: Reports: Pain Controlled - Review of Systems General: Reports: Weakness. Denies: Fever Neurological: Reports: Confusion - Patient Data Vitals - Most Recent: Last Vital Signs Temp 35.4 C L 08/20/20 10:09 Pulse 102 H 08/20/20 10:09 Resp 18 08/20/20 10:09 BP 134/84 08/20/20 10:09 Pulse Ox 94 L 08/20/20 10:09 Weight - Most Recent: 86.273 kg I&O - Last 24 Hours: Intake & Output 08/19/20 08/20/20 08/20/20 22:59 06:59 14:59 Intake Total 320 300 Balance 320 300 Lab Results Last 24 Hours: Laboratory Results - last 24 hr 08/20/20 08/20/20 Range/Units 04:15 04:15 WBC 8.9 (4.5-11.0) K/uL RBC 3.80 L (4.30-5.90) M/uL Hgb 12.3 (12.0-15.0) g/dL Hct 39.3 L (40.0-54.0) % MCV 103 H (80-98) fL MCH 32 H (27-31) pg MCHC 31 L (32-36) % Plt Count 236 (150-400) K/uL Sodium 139 L (140-148) mmol/L Potassium 3.8 (3.6-5.2) mmol/L Chloride 98 L (100-108) mmol/L Carbon Dioxide 34 H (21-32) mmol/L Anion Gap 10.8 (5.0-14.0) mmol/L BUN 27 H (7-18) mg/dL Creatinine 0.9 (0.8-1.3) mg/dL Est Cr Clr Drug Dosing 86.74 mL/min Estimated GFR (MDRD) > 60 (>60) Glucose 162 H (74-106) mg/dL Calcium 9.6 (8.5-10.1) mg/dL Med Orders - Current: Current Medications Acetaminophen (Acetaminophen 325 Mg Tab) 650 mg PO Q4H PRN PRN Reason: Pain (Mild 1-3)/fever Last Admin: 08/11/20 14:51 Dose: 650 mg Documented by: Hydrocodone Bitart/Acetaminophen (Acetaminophen/Hydrocodone 325-7.5 Mg Tab) 2 tab PO Q4H PRN PRN Reason: Pain Last Admin: 08/20/20 09:34 Dose: 2 tab Documented by: Albuterol (Albuterol 8 Gm Inhaler) 0 gm INH Q4H PRN PRN Reason: Wheezing Last Admin: 08/19/20 05:02 Dose: 2 puff Documented by: Albuterol (Albuterol 0.083% 2.5 Mg/3 Ml Neb Soln) 2.5 mg NEB Q4H PRN PRN Reason: shortness of breath/wheezing Arformoterol Tartrate (Arformoterol 15 Mcg/2 Ml Neb Soln) 15 mcg INH BIDRT [facility] Last Admin: 08/20/20 07:21 Dose: 15 mcg Documented by: Benzonatate (Benzonatate 100 Mg Cap) 100 mg PO TID [facility] Last Admin: 08/20/20 09:10 Dose: 100 mg Documented by: Calcitonin Cut Off (Calcitonin (Cut Off) Nasal [place] 3.7 Ml Bottle) 0 ml LOR DAILY [facility] Last Admin: 08/20/20 09:10 Dose: 1 spray Documented by: Dexamethasone (Dexamethasone 2 Mg Tab) 2 mg PO BID [facility] Last Admin: 08/20/20 09:10 Dose: 2 mg Documented by: Gabapentin (Gabapentin 100 Mg Cap) 200 mg PO TID [facility] Last Admin: 08/20/20 09:09 Dose: 200 mg Documented by: Guaifenesin/Dextromethorphan (Guaifenesin/Dextromethorphan 100-10 Mg/5 Ml Soln 10 Ml Cup) 10 ml PO Q4H PRN PRN Reason: Cough Last Admin: 08/20/20 09:08 Dose: 10 ml Documented by: Heparin Sodium (Porcine) (Heparin Sodium 100 Units/Ml 5 Ml Syringe) 500 units IVPUSH ASDIRECTED PRN 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 Last Admin: 08/19/20 07:56 Dose: 500 units Documented by: Hydrochlorothiazide (Hydrochlorothiazide 25 Mg Tab) 25 mg PO DAILY [facility] Last Admin: 08/20/20 09:09 Dose: 25 mg Documented by: Hydromorphone HCl (Hydromorphone 0.5 Mg/0.5 Ml Syringe) 0.5 mg IVPUSH Q4H PRN PRN Reason: Pain Last Admin: 08/19/20 07:56 Dose: 0.5 mg Documented by: Lidocaine (Lidocaine 5% 700 Mg Patch) 700 mg TRDERM Q24H [facility] Lorazepam (Lorazepam 0.5 Mg Tab) 0.5 mg PO Q4H PRN PRN Reason: Anxiety Last Admin: 08/20/20 09:07 Dose: 0.5 mg Documented by: Melatonin (Melatonin 3 Mg Tab) 6 mg PO BEDTIME PRN PRN Reason: Insomnia Last Admin: 08/19/20 23:24 Dose: 6 mg Documented by: Urea 40% Cream (Ptom) 0 applic TOP BID PRN PRN Reason: Muscle soreness Verify Fentanyl (Patch) 0 each TOP BID [facility] Last Admin: 08/20/20 09:33 Dose: Not Given Documented by: Ondansetron HCl (Ondansetron 4 Mg/2 Ml Sdv) 4 mg IV Q4H PRN PRN Reason: Nausea/Vomiting Pantoprazole Sodium (Pantoprazole 40 Mg Tab.Cr) 40 mg PO ACBREAKFAST [facility] Last Admin: 08/20/20 07:40 Dose: 40 mg Documented by: Polyethylene Glycol (Polyethylene Glycol 3350 Powder 17 Gm Packet) 17 gm PO DAILY PRN PRN Reason: Constipation Last Admin: 08/19/20 14:51 Dose: 17 gm Documented by: Rivaroxaban (Rivaroxaban 10 Mg Tab) 20 mg PO DAILY [facility] Last Admin: 08/20/20 09:09 Dose: 20 mg Documented by: Senna/Docusate Sodium (Docusate Sodium/Sennosides 50-8.6 Mg Tab) 1 tab PO BID PRN PRN Reason: Constipation Last Admin: 08/20/20 09:08 Dose: 1 tab Documented by: Sodium Chloride (Sodium Chloride 0.9% 10 Ml Syringe) 10 ml FLUSH ASDIRECTED PRN PRN Reason: Keep Vein Open Tamsulosin HCl (Tamsulosin 0.4 Mg Cap.Er) 0.4 mg PO BEDTIME [facility] Last Admin: 08/19/20 20:07 Dose: 0.4 mg Documented by: Tizanidine HCl (Tizanidine 4 Mg Tab) 2 mg PO Q6H PRN PRN Reason: Muscle Spasm Last Admin: 08/19/20 11:15 Dose: 2 mg Documented by: Discontinued Medications Hydrocodone Bitart/Acetaminophen (Acetaminophen/Hydrocodone 325-10 Mg Tab) 1 tab PO Q4H PRN PRN Reason: Pain Last Admin: 08/19/20 06:34 Dose: 1 tab Documented by: Benzonatate (Benzonatate 100 Mg Cap) 100 mg PO TID PRN PRN Reason: Cough Last Admin: 08/19/20 04:07 Dose: 100 mg Documented by: Doxycycline Hyclate (Doxycycline 100 Mg Cap) 100 mg PO Q12H [facility] Last Admin: 08/19/20 10:28 Dose: 100 mg Documented by: Fentanyl (Fentanyl 12 Mcg/Hr Transdermal Patch) 12 mcg TRDERM Q72H [facility] Last Admin: 08/14/20 08:30 Dose: 12 mcg Documented by: Fentanyl (Fentanyl 25 Mcg/Hr Transdermal Patch) 25 mcg TRDERM Q72H [facility] Last Admin: 08/20/20 09:11 Dose: Not Given Documented by: Fentanyl (Fentanyl 12 Mcg/Hr Transdermal Patch) 12 mcg TRDERM ONETIME ONE Stop: 08/14/20 11:01 Last Admin: 08/14/20 11:49 Dose: 12 mcg Documented by: Fentanyl (Fentanyl 100 Mcg/2 Ml Sdv) 50 mcg IVPUSH ONETIME ONE Stop: 08/17/20 13:23 Last Admin: 08/17/20 13:29 Dose: 50 mcg Documented by: Gadoteridol (Gadoteridol 279.3 Mg/Ml 20 Ml Sdv) 20 ml IV . DIRECTED [facility] Stop: 08/16/20 11:31 Last Admin: 08/16/20 11:56 Dose: 20 ml Documented by: Gadoteridol (Gadoteridol 279.3 Mg/Ml 15 Ml Sdv) 15 ml IV .A DIRECTED [facility] Stop: 08/18/20 09:01 Last Admin: 08/18/20 09:05 Dose: 15 ml Documented by: Hydromorphone HCl (Hydromorphone 0.5 Mg/0.5 Ml Syringe) 0.5 mg IVPUSH Q2H PRN PRN Reason: Pain Last Admin: 08/13/20 10:34 Dose: 0.5 mg Documented by: Potassium Chloride/Sodium Chloride (Normal Saline With 20 Meq Kcl) 1,000 mls @ 1,000 mls/hr IV ASDIRECTED [facility] Last Admin: 08/11/20 11:04 Dose: 1,000 mls/hr Documented by: Ceftriaxone Sodium 1 gm/ (Sodium Chloride) 50 mls @ 100 mls/hr IV Q24H [facility] Stop: 08/11/20 18:00 Last Admin: 08/11/20 14:30 Dose: 100 mls/hr Documented by: Doxycycline Hyclate 100 mg/ (Sodium Chloride) 100 mls @ 100 mls/hr IV Q12H [facility] Stop: 08/11/20 18:00 Last Admin: 08/11/20 14:55 Dose: 100 mls/hr Documented by: Sodium Chloride (Normal Saline) 1,000 mls @ 75 mls/hr IV ASDIRECTED [facility] Last Admin: 08/12/20 07:45 Dose: 75 mls/hr Documented by: Ceftriaxone Sodium 1 gm/ (Sodium Chloride) 50 mls @ 100 mls/hr IV Q24H [facility] Last Admin: 08/13/20 15:37 Dose: 100 mls/hr Documented by: Doxycycline Hyclate 100 mg/ (Sodium Chloride) 100 mls @ 100 mls/hr IV Q12H [facility] Last Admin: 08/14/20 01:15 Dose: 100 mls/hr Documented by: Lorazepam (Lorazepam 1 Mg Tab) 1 mg PO ONETIME ONE Stop: 08/16/20 09:41 Last Admin: 08/16/20 10:42 Dose: 1 mg Documented by: Oxycodone HCl (Oxycodone 5 Mg Tab) 5 mg PO ONETIME ONE Stop: 08/11/20 09:18 Last Admin: 08/11/20 09:36 Dose: 5 mg Documented by: Oxycodone HCl (Oxycodone 5 Mg Tab) 10 mg PO Q4H PRN PRN Reason: Pain Last Admin: 08/14/20 09:26 Dose: 10 mg Documented by: Rivaroxaban (Rivaroxaban 10 Mg Tab) 20 mg PO ONETIME ONE Stop: 08/11/20 10:01 Last Admin: 08/11/20 09:40 Dose: 20 mg Documented by: Simethicone (Simethicone 80 Mg Tab.Chew) 160 mg PO ONETIME ONE Stop: 08/11/20 10:41 Last Admin: 08/11/20 11:07 Dose: 160 mg Documented by: Sodium Chloride (Sodium Chloride 0.9% 10 Ml Syringe) 10 ml FLUSH ASDIRECTED PRN PRN Reason: Keep Vein Open Last Admin: 08/11/20 09:39 Dose: 10 ml Documented by: - Exam Quality Assessment: Supplemental Oxygen Central Line Total Time: 0Days 2Hours General: Alert, Cooperative, No Acute Distress. No: Oriented Lungs: Clear to Auscultation, Normal Respiratory Effort Cardiovascular: Regular Rate, Regular Rhythm GI/Abdominal Exam: Normal Bowel Sounds, Soft, No Distention, Tender (mild LLQ) Extremities: No Pedal Edema. No: Increased Warmth Skin: Warm, Dry Psy/Mental Status: Alert. No: Agitated - Patient Data Lab Results Last 24 hrs: Laboratory Results - last 24 hr 08/20/20 08/20/20 Range/Units 04:15 04:15 WBC 8.9 (4.5-11.0) K/uL RBC 3.80 L (4.30-5.90) M/uL Hgb 12.3 (12.0-15.0) g/dL Hct 39.3 L (40.0-54.0) % MCV 103 H (80-98) fL MCH 32 H (27-31) pg MCHC 31 L (32-36) % Plt Count 236 (150-400) K/uL Sodium 139 L (140-148) mmol/L Potassium 3.8 (3.6-5.2) mmol/L Chloride 98 L (100-108) mmol/L Carbon Dioxide 34 H (21-32) mmol/L Anion Gap 10.8 (5.0-14.0) mmol/L BUN 27 H (7-18) mg/dL Creatinine 0.9 (0.8-1.3) mg/dL Est Cr Clr Drug Dosing 86.74 mL/min Estimated GFR (MDRD) > 60 (>60) Glucose 162 H (74-106) mg/dL Calcium 9.6 (8.5-10.1) mg/dL Result Diagrams: 08/20/20 04:15 08/20/20 04:15 Sepsis Event Note - Evaluation Sepsis Screening Result: No Definite Risk - Focused Exam Vital Signs: Vital Signs Temp Pulse Resp BP Pulse Ox Pulse Ox 08/20/20 10:09 35.4 C L 102 H 18 134/84 94 L 08/20/20 07:44 92 L 08/20/20 07:34 94 08/20/20 07:00 34.9 C L 94 18 138/91 H - Problem List Review Problem List Initiated/Reviewed/Updated: Yes - My Orders Last 24 Hours: My Active Orders 08/19/20 11:05 Dextromethorphan/guaiFENesin [Robitussin DM] 10 ml PO Q4H PRN 08/19/20 12:00 Calcitonin (Cut Off) [Miacalcin Nasal [place]] 0 ml LOR DAILY 08/19/20 14:00 Benzonatate [Tessalon Perles] 100 mg PO TID 08/20/20 11:56 bisacodyL [Dulcolax] 10 mg PO ONETIME ONE 08/20/20 12:00 Lidocaine 5% [Lidoderm 5%] 700 mg TRDERM Q24H - Plan Plan:: ASSESSMENT AND PLAN T7 compression fracture-I suspect this is contributing to a radicular type pain with both left and right-sided chest pain. No other obvious cause. Coughing seems to be the trigger for increased pain recently. Pain control is finally improving. Concerned that the fentanyl patch may be leading to some confusion. -Scheduled and as needed cough suppressants -Continue calcitonin -Discontinue fentanyl patch -Start lidocaine patch over the middle of his back -Scheduled gabapentin -As needed hydrocodone -As needed muscle relaxer -Continue physical therapy HYPOXIC RESPIRATORY FAILURE-he has a known history of left lung cancer status post previous partial left lung resection. Complicated by recent pulmonary embolism in the left lung. Did require oxygen overnight but off as of this morning. -Supplemental oxygen as needed, wean as able -May need home oxygen Probable bronchitis-chest x-ray initially raised concern for pneumonia but not seen on CT scan. Suspect bronchitis with increased cough, dyspnea and recent hypoxia. Cultures negative and he has completed adequate treatment. GENERALIZED WEAKNESS-likely secondary to current infection and shortness of breath as well as underlying lung cancer. Slow improvement in overall strength, activity improved with increased pain control. Hopefully his pain will improve once his mental status gets closer to normal. -Physical therapy and Occupational Therapy consults NON-SMALL CELL CANCER OF THE LUNG STAGE IV-two large but stable metastases to t he brain as well as cancer related pain. -Outpatient follow-up with oncology RECENT PULMONARY EMBOLISM-requiring supplemental oxygen as above. -Continue current oral anticoagulation MAINTENANCE ISSUES -DVT prophylaxis; rivaroxaban -GI prophylaxis; continue outpatient PPI therapy -Velazquez catheter; not indicated -Nutrition; 2 g sodium diet DISPOSITION-anticipate discharge to home probably with home care after the hospital stay, hopefully 1-2 days if stable overnight. Still having episodes of severe pain requiring intermittent IV analgesia and altered mental status. Ayad Villarreal MD
[2020-08-20] MEDS ORDERED: Bisacodyl 5 MG Tab PO ONE (12:30)
[2020-08-20] MEDS: Lidocaine 5% 700 MG Patch TRDERM SCH (13:17)
[2020-08-20] MEDS: Tamsulosin 0.4 MG Cap.ER PO SCH (21:27)
[2020-08-21] MEDS: Acetaminophen/HYDROcodone 325-7.5 MG Tab PO PRN ×4 (02:03→21:14)
[2020-08-21] MEDS: guaiFENesin/Dextromethorphan 100-10 MG/5 ML Soln 10 ML Cup PO PRN (02:12)
[2020-08-21] MEDS: Arformoterol 15 MCG/2 ML Neb Soln INH SCH ×2 (07:20→21:09)
[2020-08-21] MEDS: VERIFY FENTANYL PATCH TOP SCH (08:16)
[2020-08-21] MEDS: Gabapentin 100 MG Cap PO SCH ×3 (08:17→21:08)
[2020-08-21] MEDS: Dexamethasone 2 MG Tab PO SCH ×2 (08:17→21:08)
[2020-08-21] MEDS: Benzonatate 100 MG Cap PO SCH ×3 (08:17→21:07)
[2020-08-21] MEDS: Pantoprazole 40 MG Tab.CR PO SCH (08:17)
[2020-08-21] MEDS: Hydrochlorothiazide 25 MG Tab PO SCH (08:17)
[2020-08-21] MEDS: Lidocaine 5% 700 MG Patch TRDERM SCH (08:17)
[2020-08-21] MEDS: Rivaroxaban 10 MG Tab PO SCH (08:17)
[2020-08-21] MEDS: Calcitonin (Salmon) Nasal Spray 3.7 ML Bottle NAS SCH (08:18)
[2020-08-21] MEDS: Polyethylene Glycol 3350 Powder 17 GM Packet PO PRN (09:26)
[2020-08-21] MEDS ORDERED: Sodium Phosphate,Monobasic/Sodium Phosphate,Dibasic Enema 133 ML Bottle RECTAL PRN (12:40)
--- NOTE | 2020-08-21 12:48 | PCM.PN ---
- General Info Date of Service: 08/21/20 Subjective Update: Mr. Richardson has remained fairly stable since yesterday. Pain control has improved over the past few days. Appetite has been good but he continues to experience cough which causes significant discomfort. Functional Status: Reports: Tolerating Diet, Urinating. Denies: Ambulating - Review of Systems General: Reports: Weakness, Fatigue. Denies: Fever, Chills Pulmonary: Reports: Shortness of Breath, Cough. Denies: Pleuritic Chest Pain, Sputum, Hemoptysis, Wheezing Cardiovascular: Reports: Dyspnea on Exertion. Denies: Chest Pain, Palpitations, Orthopnea, PND, Edema, Lightheadedness Gastrointestinal: Reports: No Symptoms Genitourinary: Reports: No Symptoms - Patient Data Vitals - Most Recent: Last Vital Signs Temp 97 F 08/21/20 10:39 Pulse 109 H 08/21/20 10:39 Resp 20 08/21/20 10:39 BP 130/88 08/21/20 10:39 Pulse Ox 98 08/21/20 10:39 Weight - Most Recent: 190 lb 3.2 oz I&O - Last 24 Hours: Intake & Output 08/20/20 08/21/20 08/21/20 22:59 06:59 14:59 Intake Total 600 350 Balance 600 350 Med Orders - Current: Current Medications Acetaminophen (Acetaminophen 325 Mg Tab) 650 mg PO Q4H PRN PRN Reason: Pain (Mild 1-3)/fever Last Admin: 08/11/20 14:51 Dose: 650 mg Documented by: Hydrocodone Bitart/Acetaminophen (Acetaminophen/Hydrocodone 325-7.5 Mg Tab) 2 tab PO Q4H PRN PRN Reason: Pain Last Admin: 08/21/20 08:20 Dose: 2 tab Documented by: Albuterol (Albuterol 8 Gm Inhaler) 0 gm INH Q4H PRN PRN Reason: Wheezing Last Admin: 08/19/20 05:02 Dose: 2 puff Documented by: Albuterol (Albuterol 0.083% 2.5 Mg/3 Ml Neb Soln) 2.5 mg NEB Q4H PRN PRN Reason: shortness of breath/wheezing Arformoterol Tartrate (Arformoterol 15 Mcg/2 Ml Neb Soln) 15 mcg INH BIDRT RAYMOND Last Admin: 08/21/20 07:20 Dose: 15 mcg Documented by: Benzonatate (Benzonatate 100 Mg Cap) 100 mg PO TID [facility] Last Admin: 08/21/20 08:17 Dose: 100 mg Documented by: Bisacodyl (Bisacodyl 10 Mg Supp) 10 mg RECTAL ONETIME ONE Stop: 08/21/20 12:41 Calcitonin Hector (Calcitonin (Hector) Nasal Grulla 3.7 Ml Bottle) 0 ml LOR DAILY [facility] Last Admin: 08/21/20 08:18 Dose: 1 spray Documented by: Dexamethasone (Dexamethasone 2 Mg Tab) 2 mg PO BID [facility] Last Admin: 08/21/20 08:17 Dose: 2 mg Documented by: Gabapentin (Gabapentin 100 Mg Cap) 200 mg PO TID [facility] Last Admin: 08/21/20 08:17 Dose: 200 mg Documented by: Guaifenesin/Codeine Phosphate (Codeine/Guaifenesin 10-100 Mg/5 Ml Syrup 5 Ml Cup) 10 ml PO Q4H PRN PRN Reason: Cough Heparin Sodium (Porcine) (Heparin Sodium 100 Units/Ml 5 Ml Syringe) 500 units IVPUSH ASDIRECTED PRN 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 Last Admin: 08/19/20 07:56 Dose: 500 units Documented by: Hydrochlorothiazide (Hydrochlorothiazide 25 Mg Tab) 25 mg PO DAILY [facility] Last Admin: 08/21/20 08:17 Dose: 25 mg Documented by: Hydromorphone HCl (Hydromorphone 0.5 Mg/0.5 Ml Syringe) 0.5 mg IVPUSH Q4H PRN PRN Reason: Pain Last Admin: 08/19/20 07:56 Dose: 0.5 mg Documented by: Lidocaine (Lidocaine 5% 700 Mg Patch) 700 mg TRDERM DAILY [facility] Last Admin: 08/21/20 08:17 Dose: 700 mg Documented by: Lorazepam (Lorazepam 0.5 Mg Tab) 0.5 mg PO Q4H PRN PRN Reason: Anxiety Last Admin: 08/20/20 09:07 Dose: 0.5 mg Documented by: Melatonin (Melatonin 3 Mg Tab) 6 mg PO BEDTIME PRN PRN Reason: Insomnia Last Admin: 08/19/20 23:24 Dose: 6 mg Documented by: Miscellaneous Information (Remove Patch) 1 ea TRDERM BEDTIME [facility] Urea 40% Cream (Ptom) 0 applic TOP BID PRN PRN Reason: Muscle soreness Ondansetron HCl (Ondansetron 4 Mg/2 Ml Sdv) 4 mg IV Q4H PRN PRN Reason: Nausea/Vomiting Pantoprazole Sodium (Pantoprazole 40 Mg Tab.Cr) 40 mg PO ACBREAKFAST [facility] Last Admin: 08/21/20 08:17 Dose: 40 mg Documented by: Polyethylene Glycol (Polyethylene Glycol 3350 Powder 17 Gm Packet) 17 gm PO DAILY PRN PRN Reason: Constipation Last Admin: 08/21/20 09:26 Dose: 17 gm Documented by: Rivaroxaban (Rivaroxaban 10 Mg Tab) 20 mg PO DAILY [facility] Last Admin: 08/21/20 08:17 Dose: 20 mg Documented by: Senna/Docusate Sodium (Docusate Sodium/Sennosides 50-8.6 Mg Tab) 1 tab PO BID PRN PRN Reason: Constipation Last Admin: 08/20/20 09:08 Dose: 1 tab Documented by: Sodium Biphosphate/Sodium Phosphate (Sodium Phosphate,Monobasic/Sodium Phosphate,Dibasic Enema 133 Ml Bottle) 133 ml RECTAL ONETIME PRN PRN Reason: Constipation Sodium Chloride (Sodium Chloride 0.9% 10 Ml Syringe) 10 ml FLUSH ASDIRECTED PRN PRN Reason: Keep Vein Open Tamsulosin HCl (Tamsulosin 0.4 Mg Cap.Er) 0.4 mg PO BEDTIME [facility] Last Admin: 08/20/20 21:27 Dose: 0.4 mg Documented by: Tizanidine HCl (Tizanidine 4 Mg Tab) 2 mg PO Q6H PRN PRN Reason: Muscle Spasm Last Admin: 08/19/20 11:15 Dose: 2 mg Documented by: Discontinued Medications Hydrocodone Bitart/Acetaminophen (Acetaminophen/Hydrocodone 325-10 Mg Tab) 1 tab PO Q4H PRN PRN Reason: Pain Last Admin: 08/19/20 06:34 Dose: 1 tab Documented by: Benzonatate (Benzonatate 100 Mg Cap) 100 mg PO TID PRN PRN Reason: Cough Last Admin: 08/19/20 04:07 Dose: 100 mg Documented by: Bisacodyl (Bisacodyl 5 Mg Tab) 10 mg PO ONETIME ONE Stop: 08/20/20 12:31 Last Admin: 08/20/20 13:19 Dose: 10 mg Documented by: Doxycycline Hyclate (Doxycycline 100 Mg Cap) 100 mg PO Q12H [facility] Last Admin: 08/19/20 10:28 Dose: 100 mg Documented by: Fentanyl (Fentanyl 12 Mcg/Hr Transdermal Patch) 12 mcg TRDERM Q72H [facility] Last Admin: 08/14/20 08:30 Dose: 12 mcg Documented by: Fentanyl (Fentanyl 25 Mcg/Hr Transdermal Patch) 25 mcg TRDERM Q72H [facility] Last Admin: 08/20/20 09:11 Dose: Not Given Documented by: Fentanyl (Fentanyl 12 Mcg/Hr Transdermal Patch) 12 mcg TRDERM ONETIME ONE Stop: 08/14/20 11:01 Last Admin: 08/14/20 11:49 Dose: 12 mcg Documented by: Fentanyl (Fentanyl 100 Mcg/2 Ml Sdv) 50 mcg IVPUSH ONETIME ONE Stop: 08/17/20 13:23 Last Admin: 08/17/20 13:29 Dose: 50 mcg Documented by: Gadoteridol (Gadoteridol 279.3 Mg/Ml 20 Ml Sdv) 20 ml IV . DIRECTED [place]MON[place] Stop: 08/16/20 11:31 Last Admin: 08/16/20 11:56 Dose: 20 ml Documented by: Gadoteridol (Gadoteridol 279.3 Mg/Ml 15 Ml Sdv) 15 ml IV .A DIRECTED [place] Stop: 08/18/20 09:01 Last Admin: 08/18/20 09:05 Dose: 15 ml Documented by: Guaifenesin/Dextromethorphan (Guaifenesin/Dextromethorphan 100-10 Mg/5 Ml Soln 10 Ml Cup) 10 ml PO Q4H PRN PRN Reason: Cough Last Admin: 08/21/20 02:12 Dose: 10 ml Documented by: Hydromorphone HCl (Hydromorphone 0.5 Mg/0.5 Ml Syringe) 0.5 mg IVPUSH Q2H PRN PRN Reason: Pain Last Admin: 08/13/20 10:34 Dose: 0.5 mg Documented by: Potassium Chloride/Sodium Chloride (Normal Saline With 20 Meq Kcl) 1,000 mls @ 1,000 mls/hr IV ASDIRECTED [facility] Last Admin: 08/11/20 11:04 Dose: 1,000 mls/hr Documented by: Ceftriaxone Sodium 1 gm/ (Sodium Chloride) 50 mls @ 100 mls/hr IV Q24H [facility] Stop: 08/11/20 18:00 Last Admin: 08/11/20 14:30 Dose: 100 mls/hr Documented by: Doxycycline Hyclate 100 mg/ (Sodium Chloride) 100 mls @ 100 mls/hr IV Q12H [facility] Stop: 08/11/20 18:00 Last Admin: 08/11/20 14:55 Dose: 100 mls/hr Documented by: Sodium Chloride (Normal Saline) 1,000 mls @ 75 mls/hr IV ASDIRECTED [facility] Last Admin: 08/12/20 07:45 Dose: 75 mls/hr Documented by: Ceftriaxone Sodium 1 gm/ (Sodium Chloride) 50 mls @ 100 mls/hr IV Q24H [facility] Last Admin: 08/13/20 15:37 Dose: 100 mls/hr Documented by: Doxycycline Hyclate 100 mg/ (Sodium Chloride) 100 mls @ 100 mls/hr IV Q12H [facility] Last Admin: 08/14/20 01:15 Dose: 100 mls/hr Documented by: Lorazepam (Lorazepam 1 Mg Tab) 1 mg PO ONETIME ONE Stop: 08/16/20 09:41 Last Admin: 08/16/20 10:42 Dose: 1 mg Documented by: Miscellaneous Information (Remove Patch) 1 ea TRDERM ONETIME ONE Stop: 08/20/20 22:51 Last Admin: 08/20/20 23:09 Dose: Not Given Documented by: Verify Fentanyl (Patch) 0 each TOP BID [facility] Last Admin: 08/21/20 08:16 Dose: Not Given Documented by: Oxycodone HCl (Oxycodone 5 Mg Tab) 5 mg PO ONETIME ONE Stop: 08/11/20 09:18 Last Admin: 08/11/20 09:36 Dose: 5 mg Documented by: Oxycodone HCl (Oxycodone 5 Mg Tab) 10 mg PO Q4H PRN PRN Reason: Pain Last Admin: 08/14/20 09:26 Dose: 10 mg Documented by: Rivaroxaban (Rivaroxaban 10 Mg Tab) 20 mg PO ONETIME ONE Stop: 08/11/20 10:01 Last Admin: 08/11/20 09:40 Dose: 20 mg Documented by: Simethicone (Simethicone 80 Mg Tab.Chew) 160 mg PO ONETIME ONE Stop: 08/11/20 10:41 Last Admin: 08/11/20 11:07 Dose: 160 mg Documented by: Sodium Chloride (Sodium Chloride 0.9% 10 Ml Syringe) 10 ml FLUSH ASDIRECTED PRN PRN Reason: Keep Vein Open Last Admin: 08/11/20 09:39 Dose: 10 ml Documented by: - Exam Quality Assessment: Supplemental Oxygen, DVT Prophylaxis Central Line Total Time: 3Days 13Hours General: Alert, Oriented, Cooperative, Mild Distress Lungs: Clear to Auscultation, Normal Respiratory Effort Cardiovascular: Regular Rate, Regular Rhythm, No Murmurs GI/Abdominal Exam: Soft, Non-Tender, No Organomegaly, No Distention Extremities: Non-Tender, No Pedal Edema - Patient Data Result Diagrams: 08/20/20 04:15 08/20/20 04:15 Sepsis Event Note - Evaluation Sepsis Screening Result: Sepsis Risk - Focused Exam Vital Signs: Vital Signs Temp Pulse Resp BP Pulse Ox 08/21/20 10:39 97 F 109 H 20 130/88 98 08/21/20 08:08 96.2 F L 102 H 22 H 136/80 97 08/21/20 07:20 93 08/21/20 05:00 96.5 F L 20 130/84 97 08/21/20 04:00 95.6 F L 93 20 129/81 97 08/21/20 03:00 95.9 F L 91 20 132/90 96 08/21/20 02:02 95.9 F L 103 H 20 140/90 98 - Problem List Review Problem List Initiated/Reviewed/Updated: Yes - My Orders Last 24 Hours: My Active Orders 08/21/20 12:40 Codeine/guaiFENesin [Robitussin AC] 10 ml PO Q4H PRN Na Phos,M-B/Na Phos,DI-B [Fleet Enema] 133 ml RECTAL ONETIME PRN bisacodyL [Dulcolax] 10 mg RECTAL ONETIME ONE - Plan Plan:: ASSESSMENT AND PLAN T7 compression fracture-I suspect this is contributing to a radicular type pain with both left and right-sided chest pain. No other obvious cause. Coughing seems to be the trigger for increased pain recently. Pain control is finally improving. Concerned that the fentanyl patch may be leading to some confusion. -Robitussin-AC as needed for cough -Continue calcitonin -lidocaine patch over the middle of his back -Scheduled gabapentin -As needed hydrocodone -As needed muscle relaxer -Continue physical therapy HYPOXIC RESPIRATORY FAILURE-he has a known history of left lung cancer status post previous partial left lung resection. Complicated by recent pulmonary embolism in the left lung. Continues to intermittently require supplemental oxygen -Supplemental oxygen as needed, wean as able -May need home oxygen Probable bronchitis-chest x-ray initially raised concern for pneumonia but not seen on CT scan. Suspect bronchitis with increased cough, dyspnea and recent hypoxia. Cultures negative and he has completed adequate treatment. GENERALIZED WEAKNESS-likely secondary to current infection and shortness of breath as well as underlying lung cancer. Slow improvement in overall strength, activity improved with increased pain control. Hopefully his pain will improve once his mental status gets closer to normal. 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 -Outpatient follow-up with oncology RECENT PULMONARY EMBOLISM-requiring supplemental oxygen as above. -Continue current oral anticoagulation MAINTENANCE ISSUES -DVT prophylaxis; rivaroxaban -GI prophylaxis; continue outpatient PPI therapy -Velazquez catheter; not indicated -Nutrition; 2 g sodium diet DISPOSITION-anticipate discharge to [facility]
[2020-08-21] MEDS ORDERED: Bisacodyl 10 MG Supp RECTAL ONE (13:30)
[2020-08-21] MEDS: LORazepam 0.5 MG Tab PO PRN (16:55)
[2020-08-21] MEDS: tiZANidine 4 MG Tab PO PRN (16:55)
[2020-08-21] MEDS: Codeine/guaiFENesin 10-100 MG/5 ML Syrup 5 ML Cup PO PRN (18:31)
[2020-08-21] MEDS: Albuterol 8 GM Inhaler INH PRN (21:06)
[2020-08-21] MEDS: Tamsulosin 0.4 MG Cap.ER PO SCH (21:09)
[2020-08-22] MEDS: Codeine/guaiFENesin 10-100 MG/5 ML Syrup 5 ML Cup PO PRN ×5 (00:36→19:48)
[2020-08-22] MEDS: Acetaminophen/HYDROcodone 325-7.5 MG Tab PO PRN ×6 (02:11→23:48)
[2020-08-22] MEDS: Arformoterol 15 MCG/2 ML Neb Soln INH SCH ×2 (07:06→19:59)
[2020-08-22] MEDS: Pantoprazole 40 MG Tab.CR PO SCH (07:34)
[2020-08-22] MEDS: Hydrochlorothiazide 25 MG Tab PO SCH (08:41)
[2020-08-22] MEDS: Dexamethasone 2 MG Tab PO SCH ×2 (08:41→19:59)
[2020-08-22] MEDS: Calcitonin (Salmon) Nasal Spray 3.7 ML Bottle NAS SCH (08:41)
[2020-08-22] MEDS: Benzonatate 100 MG Cap PO SCH ×3 (08:41→19:59)
[2020-08-22] MEDS: Rivaroxaban 10 MG Tab PO SCH (08:41)
[2020-08-22] MEDS: Gabapentin 100 MG Cap PO SCH ×3 (08:41→19:59)
[2020-08-22] MEDS: Lidocaine 5% 700 MG Patch TRDERM SCH (08:42)
--- NOTE | 2020-08-22 13:17 | PCM.PN ---
- General Info Date of Service: 08/22/20 Subjective Update: Mr Richardson has felt somewhat improved over the last 24 hours with use of Robitussin-AC cough syrup. Cough is less intense and less frequent than it had been. Otherwise pain control has been fairly good with current management. Functional Status: Reports: Tolerating Diet, Urinating. Denies: Ambulating - Review of Systems General: Reports: Weakness, Fatigue. Denies: Fever, Chills Pulmonary: Reports: Shortness of Breath, Cough. Denies: Pleuritic Chest Pain, Sputum, Hemoptysis, Wheezing Cardiovascular: Reports: Dyspnea on Exertion. Denies: Chest Pain, Palpitations, Orthopnea, PND, Edema, Lightheadedness Gastrointestinal: Reports: No Symptoms Genitourinary: Reports: No Symptoms - Patient Data Vitals - Most Recent: Last Vital Signs Temp 97.3 F 08/22/20 10:29 Pulse 103 H 08/22/20 10:29 Resp 16 08/22/20 10:29 BP 142/91 H 08/22/20 10:29 Pulse Ox 95 08/22/20 10:29 Weight - Most Recent: 190 lb 3.2 oz I&O - Last 24 Hours: Intake & Output 08/21/20 08/22/20 08/22/20 22:59 06:59 14:59 Intake Total 240 Balance 240 Med Orders - Current: Current Medications Acetaminophen (Acetaminophen 325 Mg Tab) 650 mg PO Q4H PRN PRN Reason: Pain (Mild 1-3)/fever Last Admin: 08/11/20 14:51 Dose: 650 mg Documented by: Hydrocodone Bitart/Acetaminophen (Acetaminophen/Hydrocodone 325-7.5 Mg Tab) 2 tab PO Q4H PRN PRN Reason: Pain Last Admin: 08/22/20 11:43 Dose: 2 tab Documented by: Albuterol (Albuterol 8 Gm Inhaler) 0 gm INH Q4H PRN PRN Reason: Wheezing Last Admin: 08/21/20 21:06 Dose: 2 puff Documented by: Albuterol (Albuterol 0.083% 2.5 Mg/3 Ml Neb Soln) 2.5 mg NEB Q4H PRN PRN Reason: shortness of breath/wheezing Arformoterol Tartrate (Arformoterol 15 Mcg/2 Ml Neb Soln) 15 mcg INH BIDRT RAYMOND Last Admin: 08/22/20 07:06 Dose: 15 mcg Documented by: Benzonatate (Benzonatate 100 Mg Cap) 100 mg PO TID [facility] Last Admin: 08/22/20 08:41 Dose: 100 mg Documented by: Calcitonin [place] (Calcitonin ([place]) Nasal Frakes 3.7 Ml Bottle) 0 ml LOR DAILY [facility] Last Admin: 08/22/20 08:41 Dose: 1 spray Documented by: Dexamethasone (Dexamethasone 2 Mg Tab) 2 mg PO BID [facility] Last Admin: 08/22/20 08:41 Dose: 2 mg Documented by: Gabapentin (Gabapentin 100 Mg Cap) 200 mg PO TID [facility] Last Admin: 08/22/20 08:41 Dose: 200 mg Documented by: Guaifenesin/Codeine Phosphate (Codeine/Guaifenesin 10-100 Mg/5 Ml Syrup 5 Ml Cup) 5 ml PO Q2H PRN PRN Reason: Cough Heparin Sodium (Porcine) (Heparin Sodium 100 Units/Ml 5 Ml Syringe) 500 units IVPUSH ASDIRECTED PRN 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 Last Admin: 08/19/20 07:56 Dose: 500 units Documented by: Hydrochlorothiazide (Hydrochlorothiazide 25 Mg Tab) 25 mg PO DAILY [facility] Last Admin: 08/22/20 08:41 Dose: 25 mg Documented by: Hydromorphone HCl (Hydromorphone 0.5 Mg/0.5 Ml Syringe) 0.5 mg IVPUSH Q4H PRN PRN Reason: Pain Last Admin: 08/19/20 07:56 Dose: 0.5 mg Documented by: Lidocaine (Lidocaine 5% 700 Mg Patch) 700 mg TRDERM DAILY [facility] Last Admin: 08/22/20 08:42 Dose: 700 mg Documented by: Lorazepam (Lorazepam 0.5 Mg Tab) 0.5 mg PO Q4H PRN PRN Reason: Anxiety Last Admin: 08/21/20 16:55 Dose: 0.5 mg Documented by: Melatonin (Melatonin 3 Mg Tab) 6 mg PO BEDTIME PRN PRN Reason: Insomnia Last Admin: 08/19/20 23:24 Dose: 6 mg Documented by: Miscellaneous Information (Remove Patch) 1 ea TRDERM BEDTIME [facility] Last Admin: 08/21/20 21:07 Dose: Not Given Documented by: Urea 40% Cream (Ptom) 0 applic TOP BID PRN PRN Reason: Muscle soreness Ondansetron HCl (Ondansetron 4 Mg/2 Ml Sdv) 4 mg IV Q4H PRN PRN Reason: Nausea/Vomiting Pantoprazole Sodium (Pantoprazole 40 Mg Tab.Cr) 40 mg PO ACBREAKFAST [facility] Last Admin: 08/22/20 07:34 Dose: 40 mg Documented by: Polyethylene Glycol (Polyethylene Glycol 3350 Powder 17 Gm Packet) 17 gm PO DAILY PRN PRN Reason: Constipation Last Admin: 08/21/20 09:26 Dose: 17 gm Documented by: Rivaroxaban (Rivaroxaban 10 Mg Tab) 20 mg PO DAILY [facility] Last Admin: 08/22/20 08:41 Dose: 20 mg Documented by: Senna/Docusate Sodium (Docusate Sodium/Sennosides 50-8.6 Mg Tab) 1 tab PO BID PRN PRN Reason: Constipation Last Admin: 08/20/20 09:08 Dose: 1 tab Documented by: Sodium Biphosphate/Sodium Phosphate (Sodium Phosphate,Monobasic/Sodium Phosphate,Dibasic Enema 133 Ml Bottle) 133 ml RECTAL ONETIME PRN PRN Reason: Constipation Sodium Chloride (Sodium Chloride 0.9% 10 Ml Syringe) 10 ml FLUSH ASDIRECTED PRN PRN Reason: Keep Vein Open Tamsulosin HCl (Tamsulosin 0.4 Mg Cap.Er) 0.4 mg PO BEDTIME [facility] Last Admin: 08/21/20 21:09 Dose: 0.4 mg Documented by: Tizanidine HCl (Tizanidine 4 Mg Tab) 2 mg PO Q6H PRN PRN Reason: Muscle Spasm Last Admin: 08/21/20 16:55 Dose: 2 mg Documented by: Discontinued Medications Hydrocodone Bitart/Acetaminophen (Acetaminophen/Hydrocodone 325-10 Mg Tab) 1 tab PO Q4H PRN PRN Reason: Pain Last Admin: 08/19/20 06:34 Dose: 1 tab Documented by: Benzonatate (Benzonatate 100 Mg Cap) 100 mg PO TID PRN PRN Reason: Cough Last Admin: 08/19/20 04:07 Dose: 100 mg Documented by: Bisacodyl (Bisacodyl 5 Mg Tab) 10 mg PO ONETIME ONE Stop: 08/20/20 12:31 Last Admin: 08/20/20 13:19 Dose: 10 mg Documented by: Bisacodyl (Bisacodyl 10 Mg Supp) 10 mg RECTAL ONETIME ONE Stop: 08/21/20 13:31 Last Admin: 08/21/20 13:20 Dose: 10 mg Documented by: Doxycycline Hyclate (Doxycycline 100 Mg Cap) 100 mg PO Q12H [facility] Last Admin: 08/19/20 10:28 Dose: 100 mg Documented by: Fentanyl (Fentanyl 12 Mcg/Hr Transdermal Patch) 12 mcg TRDERM Q72H RAYMOND Last Admin: 08/14/20 08:30 Dose: 12 mcg Documented by: Fentanyl (Fentanyl 25 Mcg/Hr Transdermal Patch) 25 mcg TRDERM Q72H R[place]MON[place] Last Admin: 08/20/20 09:11 Dose: Not Given Documented by: Fentanyl (Fentanyl 12 Mcg/Hr Transdermal Patch) 12 mcg TRDERM ONETIME ONE Stop: 08/14/20 11:01 Last Admin: 08/14/20 11:49 Dose: 12 mcg Documented by: Fentanyl (Fentanyl 100 Mcg/2 Ml Sdv) 50 mcg IVPUSH ONETIME ONE Stop: 08/17/20 13:23 Last Admin: 08/17/20 13:29 Dose: 50 mcg Documented by: Gadoteridol (Gadoteridol 279.3 Mg/Ml 20 Ml Sdv) 20 ml IV . DIRECTED RAYMOND Stop: 08/16/20 11:31 Last Admin: 08/16/20 11:56 Dose: 20 ml Documented by: Gadoteridol (Gadoteridol 279.3 Mg/Ml 15 Ml Sdv) 15 ml IV .A DIRECTED R[facility]MOND Stop: 08/18/20 09:01 Last Admin: 08/18/20 09:05 Dose: 15 ml Documented by: Guaifenesin/Codeine Phosphate (Codeine/Guaifenesin 10-100 Mg/5 Ml Syrup 5 Ml Cup) 10 ml PO Q4H PRN PRN Reason: Cough Last Admin: 08/22/20 10:31 Dose: 10 ml Documented by: Guaifenesin/Dextromethorphan (Guaifenesin/Dextromethorphan 100-10 Mg/5 Ml Soln 10 Ml Cup) 10 ml PO Q4H PRN PRN Reason: Cough Last Admin: 08/21/20 02:12 Dose: 10 ml Documented by: Hydromorphone HCl (Hydromorphone 0.5 Mg/0.5 Ml Syringe) 0.5 mg IVPUSH Q2H PRN PRN Reason: Pain Last Admin: 08/13/20 10:34 Dose: 0.5 mg Documented by: Potassium Chloride/Sodium Chloride (Normal Saline With 20 Meq Kcl) 1,000 mls @ 1,000 mls/hr IV ASDIRECTED [facility] Last Admin: 08/11/20 11:04 Dose: 1,000 mls/hr Documented by: Ceftriaxone Sodium 1 gm/ (Sodium Chloride) 50 mls @ 100 mls/hr IV Q24H [facility] Stop: 08/11/20 18:00 Last Admin: 08/11/20 14:30 Dose: 100 mls/hr Documented by: Doxycycline Hyclate 100 mg/ (Sodium Chloride) 100 mls @ 100 mls/hr IV Q12H [facility] Stop: 08/11/20 18:00 Last Admin: 08/11/20 14:55 Dose: 100 mls/hr Documented by: Sodium Chloride (Normal Saline) 1,000 mls @ 75 mls/hr IV ASDIRECTED [facility] Last Admin: 08/12/20 07:45 Dose: 75 mls/hr Documented by: Ceftriaxone Sodium 1 gm/ (Sodium Chloride) 50 mls @ 100 mls/hr IV Q24H [facility] Last Admin: 08/13/20 15:37 Dose: 100 mls/hr Documented by: Doxycycline Hyclate 100 mg/ (Sodium Chloride) 100 mls @ 100 mls/hr IV Q12H [facility] Last Admin: 08/14/20 01:15 Dose: 100 mls/hr Documented by: Lorazepam (Lorazepam 1 Mg Tab) 1 mg PO ONETIME ONE Stop: 08/16/20 09:41 Last Admin: 08/16/20 10:42 Dose: 1 mg Documented by: Miscellaneous Information (Remove Patch) 1 ea TRDERM ONETIME ONE Stop: 08/20/20 22:51 Last Admin: 08/20/20 23:09 Dose: Not Given Documented by: Verify Fentanyl (Patch) 0 each TOP BID [facility] Last Admin: 08/21/20 08:16 Dose: Not Given Documented by: Oxycodone HCl (Oxycodone 5 Mg Tab) 5 mg PO ONETIME ONE Stop: 08/11/20 09:18 Last Admin: 08/11/20 09:36 Dose: 5 mg Documented by: Oxycodone HCl (Oxycodone 5 Mg Tab) 10 mg PO Q4H PRN PRN Reason: Pain Last Admin: 08/14/20 09:26 Dose: 10 mg Documented by: Rivaroxaban (Rivaroxaban 10 Mg Tab) 20 mg PO ONETIME ONE Stop: 08/11/20 10:01 Last Admin: 08/11/20 09:40 Dose: 20 mg Documented by: Simethicone (Simethicone 80 Mg Tab.Chew) 160 mg PO ONETIME ONE Stop: 08/11/20 10:41 Last Admin: 08/11/20 11:07 Dose: 160 mg Documented by: Sodium Chloride (Sodium Chloride 0.9% 10 Ml Syringe) 10 ml FLUSH ASDIRECTED PRN PRN Reason: Keep Vein Open Last Admin: 08/11/20 09:39 Dose: 10 ml Documented by: - Exam Central Line Total Time: 4Days 19Hours General: Alert, Oriented, Cooperative, Mild Distress Lungs: Clear to Auscultation, Normal Respiratory Effort Cardiovascular: Regular Rate, Regular Rhythm, No Murmurs GI/Abdominal Exam: Soft, Non-Tender, No Organomegaly, No Distention Extremities: Non-Tender, Pedal Edema - Patient Data Result Diagrams: 08/20/20 04:15 08/20/20 04:15 Sepsis Event Note - Evaluation Sepsis Screening Result: No Definite Risk - Focused Exam Vital Signs: Vital Signs Temp Pulse Resp BP Pulse Ox 08/22/20 10:29 97.3 F 103 H 16 142/91 H 95 08/22/20 07:29 96.9 F 101 H 20 136/78 95 08/22/20 07:07 106 H 08/22/20 04:00 97.1 F 105 H 20 129/72 96 - Problem List Review Problem List Initiated/Reviewed/Updated: Yes - My Orders Last 24 Hours: My Active Orders 08/21/20 12:40 Na Phos,M-B/Na Phos,DI-B [Fleet Enema] 133 ml RECTAL ONETIME PRN 08/22/20 13:03 Codeine/guaiFENesin [Robitussin AC] 5 ml PO Q2H PRN - Plan Plan:: ASSESSMENT AND PLAN T7 compression fracture-I suspect this is contributing to a radicular type pain with both left and right-sided chest pain. No other obvious cause. Cough and pain related to cough have improved with use of the Robitussin-AC -Robitussin-AC as needed for cough -Continue calcitonin -lidocaine patch over the middle of his back -Scheduled gabapentin -As needed hydrocodone -As needed muscle relaxer -Continue physical therapy HYPOXIC RESPIRATORY FAILURE-he has a known history of left lung cancer status post previous partial left lung resection. Complicated by recent pulmonary embolism in the left lung. Continues to intermittently require supplemental oxygen -Supplemental oxygen as needed, wean as able -May need home oxygen Probable bronchitis-chest x-ray initially raised concern for pneumonia but not seen on CT scan. Suspect bronchitis with increased cough, dyspnea and recent hypoxia. Cultures negative and he has completed adequate treatment. GENERALIZED WEAKNESS-likely secondary to current infection and shortness of breath as well as underlying lung cancer. Slow improvement in overall strength, activity improved with increased pain control. 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 -Outpatient follow-up with oncology RECENT PULMONARY EMBOLISM-requiring supplemental oxygen as above. -Continue current oral anticoagulation MAINTENANCE ISSUES -DVT prophylaxis; rivaroxaban -GI prophylaxis; continue outpatient PPI therapy -Velazquez catheter; not indicated -Nutrition; 2 g sodium diet DISPOSITION-anticipate discharge to correction
[2020-08-22] MEDS: Tamsulosin 0.4 MG Cap.ER PO SCH (19:59)
[2020-08-22] MEDS: HYDROmorphone 0.5 MG/0.5 ML Syringe IVPUSH PRN (21:58)
[2020-08-22] MEDS: LORazepam 0.5 MG Tab PO PRN (22:04)
[2020-08-22] MEDS: tiZANidine 4 MG Tab PO PRN (23:47)
[2020-08-23] MEDS: Codeine/guaiFENesin 10-100 MG/5 ML Syrup 5 ML Cup PO PRN ×2 (02:08→07:54)
[2020-08-23] MEDS: Arformoterol 15 MCG/2 ML Neb Soln INH SCH (07:06)
[2020-08-23] MEDS: Acetaminophen/HYDROcodone 325-7.5 MG Tab PO PRN (07:50)
[2020-08-23] MEDS: Pantoprazole 40 MG Tab.CR PO SCH (07:50)
[2020-08-23] MEDS: Lidocaine 5% 700 MG Patch TRDERM SCH (08:10)
[2020-08-23] MEDS: Hydrochlorothiazide 25 MG Tab PO SCH (08:11)
[2020-08-23] MEDS: Rivaroxaban 10 MG Tab PO SCH (08:11)
[2020-08-23] MEDS: Benzonatate 100 MG Cap PO SCH (08:11)
[2020-08-23] MEDS: Dexamethasone 2 MG Tab PO SCH (08:12)
[2020-08-23] MEDS: Calcitonin (Salmon) Nasal Spray 3.7 ML Bottle NAS SCH (08:12)
[2020-08-23] MEDS: Gabapentin 100 MG Cap PO SCH (08:12)
--- NOTE | 2020-08-23 08:58 | PCM.DCSUM1 ---
Discharge Summary - Hospital Course Brief History: Mr. Richardson is a 64-year-old gentleman who was admitted through the emergency department with progressive weakness, uncontrolled pain, and shortness of breath, secondary to T7 spinal compression fracture and underlying non-small cell metastatic lung cancer. - Discharge Data Discharge Date: 08/23/20 Discharge Disposition: DC/Tfer to SNF 03 Condition: Poor - Referral to Home Health Primary Care Physician: PCP None - Discharge Diagnosis/Problem(s) (1) Hx of pulmonary embolus SNOMED Code(s): 391664256 ICD Code: Z86.711 - PERSONAL HISTORY OF PULMONARY EMBOLISM Status: Chronic Current Visit: No (2) Malignant neoplasm metastatic to brain Status: Chronic Current Visit: No (3) Non-small cell carcinoma of left lung, stage 4 SNOMED Code(s): 858345943, 897739693 ICD Code: C34.92 - MALIGNANT NEOPLASM OF UNSP PART OF LEFT BRONCHUS OR LUNG Status: Chronic Current Visit: No (4) Compression fracture of T7 vertebra SNOMED Code(s): 546227811, 661426542 ICD Code: S22.060A - WEDGE COMPRESSION FRACTURE OF T7-T8 VERTEBRA, INIT Status: Acute Current Visit: Yes (5) Cough SNOMED Code(s): 65268582 ICD Code: R05 - COUGH Status: Acute Current Visit: Yes (6) Hypoxia SNOMED Code(s): 534678470 ICD Code: R09.02 - HYPOXEMIA Status: Acute Current Visit: Yes - Patient Summary/Data Consults: Consultations 08/11/20 14:34 Consult to Physical Therapy [PT Evaluation and Treatment] [CONS] Routine Please Evaluate and Treat. PT Reason for Consult: Generalized weakness This query below is only for informational purposes and is not editable. Admission Diagnosis/Problem: Hypoxemia 08/16/20 13:53 OT Evaluation and Treatment [CONS] Routine Please Evaluate and Treat. OT Reason for Consult: ADL's This query below is only for informational purposes and is not editable. Admission Diagnosis/Problem: Hypoxemia Hospital Course: Mr. Richardson is a 64-year-old gentleman who was admitted through the emergency department with shortness of breath and generalized weakness. He has a known history of non-small cell lung cancer with known metastatic disease to the brain. He is status post previous [employer] radiation therapy as well as chemotherapy. He has been off of active treatment now for the past 3 to 4 months. Over the past 2 weeks he has developed a nonproductive cough and progressive shortness of breath as well as weakness. During this period of time his appetite has been diminished. He has been evaluated in the clinic as well as the emergency department. Previous CT scan of the chest did document a left pulmonary embolism. He has been on long-term oral anticoagulation with Xarelto since that time. He also has experienced increased pain in his back and chest and abdomen. He has been felt to have probable viral respiratory tract infection and has been on inhaler therapy as well as increased dose of steroids. Last visit was in the emergency department 2 days ago, CT scan of the chest was repeated at that time and showed evidence of the previously known pulmonary embolism but no other new abnormalities. His weakness is now progressed to the point that he is unable to transfer or ambulate independently. Chest x-ray obtained today does show some infiltrate in the right lung, question atelectasis versus infection. White blood cell count is mildly elevated. He has been more short of breath and on evaluation today was found to be hypoxic on room air. He denies any previous history of cardiac disease. Blood cultures were obtained and he was started on antibiotic therapy for possible pneumonia. Because of uncontrolled pain he was started on fentanyl patch at 12 mcg every 72 hours. He unfortunately had ongoing difficulty with pain and several days after admission fentanyl patch was increased to 25 mcg daily. He did develop increased confusion and lethargy and eventually the fentanyl patch was discontinued altogether. He was treated with short acting narcotics. In addition he was started on gabapentin as well as a lidocaine patch. He had ongoing difficulty with cough which was managed with cough syrup and codeine. He remained very weak and was unable to ambulate independently during his hospitalization. MRI of the brain was obtained during hospitalization and showed the 2 metastatic lesions which appeared to be stable in size since the previous study. MRI of the thoracic spine did document T7 compression fracture and showed no evidence of metastatic disease. By the time of discharge he had completed a course of antibiotic therapy for pulmonary infection. He continued to require supplemental oxygen, likely secondary to his underlying lung carcinoma and pulmonary emboli. [facility] for restorative physical therapy and Occupational Therapy. Activity will be as tolerated and he will resume his usual diet. Follow-up with primary care will be at the [facility] as needed. He already has follow-up appointment scheduled with oncology for reassessment of his lung cancer. - Patient Instructions Diet: Usual Diet as Tolerated Activity: As Tolerated Other/Special Instructions: Daily physical therapy and Occupational Therapy while at the [facility] - Discharge Plan *PRESCRIPTION DRUG MONITORING PROGRAM REVIEWED*: Not Applicable *COPY OF PRESCRIPTION DRUG MONITORING REPORT IN PATIENT ADITYA: Not Applicable Prescriptions/Med Rec: HYDROmorphone [Dilaudid] 2 mg PO Q3H PRN #60 tab PRN Reason: Pain Lidocaine 5% [Lidoderm 5%] 700 mg TRDERM DAILY #30 patch Calcitonin ([place]) [Miacalcin Nasal [place]] 1 spray LOR DAILY #1 bottle Gabapentin [Neurontin] 200 mg PO TID #180 cap Codeine/guaiFENesin [Robitussin AC] 5 ml PO Q2H PRN #240 ml PRN Reason: Cough Home Medications: Home Meds Acetaminophen/HYDROcodone [[place] 325-10 MG] 1 tab PO Q6H PRN 11/29/19 [History] Albuterol Sulfate [Proair Hfa] 1 - 2 puff IH Q4H PRN 11/29/19 [History] Docusate Sodium/Sennosides [Senokot-S] 1 each PO BID PRN 11/29/19 [History] Fluticasone Propionate [Flonase] 2 spray NS DAILY PRN 11/29/19 [History] Loratadine [Claritin] 10 mg PO DAILY 11/29/19 [History] Multivitamin [Multi-Day Vitamins] 1 each PO DAILY 11/29/19 [History] Omeprazole 40 mg PO DAILY 11/29/19 [History] Ondansetron [Zofran] 8 mg PO Q8H PRN 11/29/19 [History] Urea [Urea 40% Crm] 1 applic TOP BID PRN 11/29/19 [History] dexAMETHasone [Dexamethasone] 2 mg PO BID 11/29/19 [History] Formoterol Fumarate [Perforomist] 20 mcg INH BID 08/09/20 [History] Rivaroxaban [Xarelto] 20 mg PO DAILY 08/09/20 [History] hydroCHLOROthiazide [Hydrochlorothiazide] 25 mg PO DAILY 08/09/20 [History] Benzonatate [Tessalon [place]] 100 mg PO TID PRN 08/11/20 [History] Fish Oil/[place]-3 Fatty Acids [Fish Oil 1,000 MG] 1 tab PO DAILY 08/11/20 [History] LORazepam [Ativan] 1 mg PO Q8H PRN 08/11/20 [History] Calcitonin ([place]) [Miacalcin Nasal [place]] 1 spray LOR DAILY #1 bottle 08/23/20 [Rx] Codeine/guaiFENesin [Robitussin AC] 5 ml PO Q2H PRN #240 ml 08/23/20 [Rx] Gabapentin [Neurontin] 200 mg PO TID #180 cap 08/23/20 [Rx] HYDROmorphone [Dilaudid] 2 mg PO Q3H PRN #60 tab 08/23/20 [Rx] Lidocaine 5% [Lidoderm 5%] 700 mg TRDERM DAILY #30 patch 08/23/20 [Rx] Referrals: Eleazar March MD [Physician] - 08/24/20 11:20 am (Please arrive 15 minutes early to register for your appointment.) - Discharge Summary/Plan Comment DC Time >30 min.: No - Patient Data Vitals - Most Recent: Last Vital Signs Temp 94.8 F L 08/23/20 07:00 Pulse 99 08/23/20 07:00 Resp 18 08/23/20 07:00 BP 121/83 08/23/20 07:00 Pulse Ox 96 08/23/20 07:00 Weight - Most Recent: 190 lb 3.2 oz I&O - Last 24 hours: Intake & Output 08/22/20 08/23/20 08/23/20 22:59 06:59 14:59 Intake Total 300 200 Output Total 100 Balance 300 -100 200 Med Orders - Current: Current Medications Acetaminophen (Acetaminophen 325 Mg Tab) 650 mg PO Q4H PRN PRN Reason: Pain (Mild 1-3)/fever Last Admin: 08/11/20 14:51 Dose: 650 mg Documented by: Hydrocodone Bitart/Acetaminophen (Acetaminophen/Hydrocodone 325-7.5 Mg Tab) 2 tab PO Q4H PRN PRN Reason: Pain Last Admin: 08/23/20 07:50 Dose: 2 tab Documented by: Albuterol (Albuterol 8 Gm Inhaler) 0 gm INH Q4H PRN PRN Reason: Wheezing Last Admin: 08/21/20 21:06 Dose: 2 puff Documented by: Albuterol (Albuterol 0.083% 2.5 Mg/3 Ml Neb Soln) 2.5 mg NEB Q4H PRN PRN Reason: shortness of breath/wheezing Arformoterol Tartrate (Arformoterol 15 Mcg/2 Ml Neb Soln) 15 mcg INH BIDRT [facility] Last Admin: 08/23/20 07:06 Dose: 15 mcg Documented by: Benzonatate (Benzonatate 100 Mg Cap) 100 mg PO TID [facility] Last Admin: 08/23/20 08:11 Dose: 100 mg Documented by: Calcitonin [place] (Calcitonin ([place]) Nasal [place] 3.7 Ml Bottle) 0 ml LOR DAILY [facility] Last Admin: 08/23/20 08:12 Dose: 1 spray Documented by: Dexamethasone (Dexamethasone 2 Mg Tab) 2 mg PO BID [facility] Last Admin: 08/23/20 08:12 Dose: 2 mg Documented by: Gabapentin (Gabapentin 100 Mg Cap) 200 mg PO TID [facility] Last Admin: 08/23/20 08:12 Dose: 200 mg Documented by: Guaifenesin/Codeine Phosphate (Codeine/Guaifenesin 10-100 Mg/5 Ml Syrup 5 Ml Cup) 5 ml PO Q2H PRN PRN Reason: Cough Last Admin: 08/23/20 07:54 Dose: 5 ml Documented by: Heparin Sodium (Porcine) (Heparin Sodium 100 Units/Ml 5 Ml Syringe) 500 units IVPUSH ASDIRECTED PRN 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 Last Admin: 08/23/20 08:03 Dose: 500 units Documented by: Hydrochlorothiazide (Hydrochlorothiazide 25 Mg Tab) 25 mg PO DAILY [facility] Last Admin: 08/23/20 08:11 Dose: 25 mg Documented by: Hydromorphone HCl (Hydromorphone 0.5 Mg/0.5 Ml Syringe) 0.5 mg IVPUSH Q4H PRN PRN Reason: Pain Last Admin: 08/22/20 21:58 Dose: 0.5 mg Documented by: Lidocaine (Lidocaine 5% 700 Mg Patch) 700 mg TRDERM DAILY [facility] Last Admin: 08/23/20 08:10 Dose: 700 mg Documented by: Lorazepam (Lorazepam 0.5 Mg Tab) 0.5 mg PO Q4H PRN PRN Reason: Anxiety Last Admin: 08/22/20 22:04 Dose: 0.5 mg Documented by: Melatonin (Melatonin 3 Mg Tab) 6 mg PO BEDTIME PRN PRN Reason: Insomnia Last Admin: 08/19/20 23:24 Dose: 6 mg Documented by: Miscellaneous Information (Remove Patch) 1 ea TRDERM BEDTIME [facility] Last Admin: 08/22/20 20:00 Dose: Not Given Documented by: Urea 40% Cream (Ptom) 0 applic TOP BID PRN PRN Reason: Muscle soreness Ondansetron HCl (Ondansetron 4 Mg/2 Ml Sdv) 4 mg IV Q4H PRN PRN Reason: Nausea/Vomiting Pantoprazole Sodium (Pantoprazole 40 Mg Tab.Cr) 40 mg PO ACBREAKFAST [facility] Last Admin: 08/23/20 07:50 Dose: 40 mg Documented by: Polyethylene Glycol (Polyethylene Glycol 3350 Powder 17 Gm Packet) 17 gm PO DAILY PRN PRN Reason: Constipation Last Admin: 08/21/20 09:26 Dose: 17 gm Documented by: Rivaroxaban (Rivaroxaban 10 Mg Tab) 20 mg PO DAILY [facility] Last Admin: 08/23/20 08:11 Dose: 20 mg Documented by: Senna/Docusate Sodium (Docusate Sodium/Sennosides 50-8.6 Mg Tab) 1 tab PO BID PRN PRN Reason: Constipation Last Admin: 08/20/20 09:08 Dose: 1 tab Documented by: Sodium Biphosphate/Sodium Phosphate (Sodium Phosphate,Monobasic/Sodium Phosphate,Dibasic Enema 133 Ml Bottle) 133 ml RECTAL ONETIME PRN PRN Reason: Constipation Sodium Chloride (Sodium Chloride 0.9% 10 Ml Syringe) 10 ml FLUSH ASDIRECTED PRN PRN Reason: Keep Vein Open Tamsulosin HCl (Tamsulosin 0.4 Mg Cap.Er) 0.4 mg PO BEDTIME [facility] Last Admin: 08/22/20 19:59 Dose: 0.4 mg Documented by: Tizanidine HCl (Tizanidine 4 Mg Tab) 2 mg PO Q6H PRN PRN Reason: Muscle Spasm - Painful Last Admin: 08/22/20 23:47 Dose: 2 mg Documented by: Discontinued Medications Hydrocodone Bitart/Acetaminophen (Acetaminophen/Hydrocodone 325-10 Mg Tab) 1 tab PO Q4H PRN PRN Reason: Pain Last Admin: 08/19/20 06:34 Dose: 1 tab Documented by: Benzonatate (Benzonatate 100 Mg Cap) 100 mg PO TID PRN PRN Reason: Cough Last Admin: 08/19/20 04:07 Dose: 100 mg Documented by: Bisacodyl (Bisacodyl 5 Mg Tab) 10 mg PO ONETIME ONE Stop: 08/20/20 12:31 Last Admin: 08/20/20 13:19 Dose: 10 mg Documented by: Bisacodyl (Bisacodyl 10 Mg Supp) 10 mg RECTAL ONETIME ONE Stop: 08/21/20 13:31 Last Admin: 08/21/20 13:20 Dose: 10 mg Documented by: Doxycycline Hyclate (Doxycycline 100 Mg Cap) 100 mg PO Q12H [facility] Last Admin: 08/19/20 10:28 Dose: 100 mg Documented by: Fentanyl (Fentanyl 12 Mcg/Hr Transdermal Patch) 12 mcg TRDERM Q72H [facility] Last Admin: 08/14/20 08:30 Dose: 12 mcg Documented by: Fentanyl (Fentanyl 25 Mcg/Hr Transdermal Patch) 25 mcg TRDERM Q72H [facility] Last Admin: 08/20/20 09:11 Dose: Not Given Documented by: Fentanyl (Fentanyl 12 Mcg/Hr Transdermal Patch) 12 mcg TRDERM ONETIME ONE Stop: 08/14/20 11:01 Last Admin: 08/14/20 11:49 Dose: 12 mcg Documented by: Fentanyl (Fentanyl 100 Mcg/2 Ml Sdv) 50 mcg IVPUSH ONETIME ONE Stop: 08/17/20 13:23 Last Admin: 08/17/20 13:29 Dose: 50 mcg Documented by: Gadoteridol (Gadoteridol 279.3 Mg/Ml 20 Ml Sdv) 20 ml IV . DIRECTED [facility] Stop: 08/16/20 11:31 Last Admin: 08/16/20 11:56 Dose: 20 ml Documented by: Gadoteridol (Gadoteridol 279.3 Mg/Ml 15 Ml Sdv) 15 ml IV .A DIRECTED [facility] Stop: 08/18/20 09:01 Last Admin: 08/18/20 09:05 Dose: 15 ml Documented by: Guaifenesin/Codeine Phosphate (Codeine/Guaifenesin 10-100 Mg/5 Ml Syrup 5 Ml Cup) 10 ml PO Q4H PRN PRN Reason: Cough Last Admin: 08/22/20 10:31 Dose: 10 ml Documented by: Guaifenesin/Dextromethorphan (Guaifenesin/Dextromethorphan 100-10 Mg/5 Ml Soln 10 Ml Cup) 10 ml PO Q4H PRN PRN Reason: Cough Last Admin: 08/21/20 02:12 Dose: 10 ml Documented by: Hydromorphone HCl (Hydromorphone 0.5 Mg/0.5 Ml Syringe) 0.5 mg IVPUSH Q2H PRN PRN Reason: Pain Last Admin: 08/13/20 10:34 Dose: 0.5 mg Documented by: Potassium Chloride/Sodium Chloride (Normal Saline With 20 Meq Kcl) 1,000 mls @ 1,000 mls/hr IV ASDIRECTED [facility] Last Admin: 08/11/20 11:04 Dose: 1,000 mls/hr Documented by: Ceftriaxone Sodium 1 gm/ (Sodium Chloride) 50 mls @ 100 mls/hr IV Q24H [facility] Stop: 08/11/20 18:00 Last Admin: 08/11/20 14:30 Dose: 100 mls/hr Documented by: Doxycycline Hyclate 100 mg/ (Sodium Chloride) 100 mls @ 100 mls/hr IV Q12H [facility] Stop: 08/11/20 18:00 Last Admin: 08/11/20 14:55 Dose: 100 mls/hr Documented by: Sodium Chloride (Normal Saline) 1,000 mls @ 75 mls/hr IV ASDIRECTED [facility] Last Admin: 08/12/20 07:45 Dose: 75 mls/hr Documented by: Ceftriaxone Sodium 1 gm/ (Sodium Chloride) 50 mls @ 100 mls/hr IV Q24H [facility] Last Admin: 08/13/20 15:37 Dose: 100 mls/hr Documented by: Doxycycline Hyclate 100 mg/ (Sodium Chloride) 100 mls @ 100 mls/hr IV Q12H [facility] Last Admin: 08/14/20 01:15 Dose: 100 mls/hr Documented by: Lorazepam (Lorazepam 1 Mg Tab) 1 mg PO ONETIME ONE Stop: 08/16/20 09:41 Last Admin: 08/16/20 10:42 Dose: 1 mg Documented by: Miscellaneous Information (Remove Patch) 1 ea TRDERM ONETIME ONE Stop: 08/20/20 22:51 Last Admin: 08/20/20 23:09 Dose: Not Given Documented by: Verify Fentanyl (Patch) 0 each TOP BID [place] Last Admin: 08/21/20 08:16 Dose: Not Given Documented by: Oxycodone HCl (Oxycodone 5 Mg Tab) 5 mg PO ONETIME ONE Stop: 08/11/20 09:18 Last Admin: 08/11/20 09:36 Dose: 5 mg Documented by: Oxycodone HCl (Oxycodone 5 Mg Tab) 10 mg PO Q4H PRN PRN Reason: Pain Last Admin: 08/14/20 09:26 Dose: 10 mg Documented by: Rivaroxaban (Rivaroxaban 10 Mg Tab) 20 mg PO ONETIME ONE Stop: 08/11/20 10:01 Last Admin: 08/11/20 09:40 Dose: 20 mg Documented by: Simethicone (Simethicone 80 Mg Tab.Chew) 160 mg PO ONETIME ONE Stop: 08/11/20 10:41 Last Admin: 08/11/20 11:07 Dose: 160 mg Documented by: Sodium Chloride (Sodium Chloride 0.9% 10 Ml Syringe) 10 ml FLUSH ASDIRECTED PRN PRN Reason: Keep Vein Open Last Admin: 08/11/20 09:39 Dose: 10 ml Documented by: - Exam Quality Assessment: Reports: Supplemental Oxygen, DVT Prophylaxis General: Reports: Alert, Oriented, Cooperative, Moderate Distress Lungs: Reports: Clear to Auscultation, Normal Respiratory Effort Cardiovascular: Reports: Regular Rate, Regular Rhythm, No Murmurs GI/Abdominal Exam: Soft, Non-Tender, No Organomegaly, No Distention Extremities: Non-Tender *Q Meaningful Use (DIS) - VTE *Q VTE Pharmacological Contraindications *Q: High INR Value
== END 2020-08-23 11:00 | DRG 551 ==
LOC: JP.ED 08:26 → JP.ICU 13:31 → JP.MS 08-13 14:44
PROVIDERS: ADMIT Hospitalist; ATTEND Hospitalist
DX: R07.81 Pleurodynia (principal); R09.02 Hypoxemia; S22.060A Wedge compression fracture of T7-T8 vertebra, initial encounter for closed fracture; J18.9 Pneumonia, unspecified organism; I26.99 Other pulmonary embolism without acute cor pulmonale; J96.91 Respiratory failure, unspecified with hypoxia; C34.92 Malignant neoplasm of unspecified part of left bronchus or lung; C79.31 Secondary malignant neoplasm of brain; Z85.118 Personal history of other malignant neoplasm of bronchus and lung; Z85.841 Personal history of malignant neoplasm of brain; Z66 Do not resuscitate; H54.7 Unspecified visual loss; I10 Essential (primary) hypertension; K21.9 Gastro-esophageal reflux disease without esophagitis; F41.9 Anxiety disorder, unspecified; E66.9 Obesity, unspecified; Z92.3 Personal history of irradiation; Z92.21 Personal history of antineoplastic chemotherapy; Z86.711 Personal history of pulmonary embolism; Z79.01 Long term (current) use of anticoagulants; Z99.81 Dependence on supplemental oxygen; Z79.899 Other long term (current) drug therapy; Z98.49 Cataract extraction status, unspecified eye; Z68.27 Body mass index [BMI] 27.0-27.9, adult
CPT/HCPCS: 36415; 71046 ×2; 80048; 81001; 84484; 85027; 86140; 99285 ×2; A9270 ×4; J3480; 51798; 70553; 70553-26; 72157; 72157-26; 73552-26-LT; 73552-LT; 83735; 85025; 87040; 94640; 97110-GO; 97110-GP; 97140-GP; 97163-GP; 97166-GO; 97530-GP; 97535-GO; 97535-GP; A9579; J0696; J1170; J1642; J3010; J3490; J7030; J7605; J8540